=== PATIENT | female | born 1955 ===

== ENCOUNTER 2020-10-08 17:00 | Inpatient (IN) | payer OTHER ==
[~2020-10-08] VITALS: Ht 157.5 cm; Wt 52.4 kg
--- NOTE | 2020-10-08 20:39 | NUR ---
Admission Note with Justification for Admission to [facility] Patient admitted to [facility] for protective oversight for emergency stabilization of acute psychiatric crisis. Pt admitted from: Hospital ER Mode of arrival: Secure Transport Accompanied By: [facility] Staff Precipitating behaviors that initiated intake and admission: Confusion, anxiety, insomnia, Description of failure of out patient attempts at stabilization in previous setting list behavior and medication trials: ER visit, dcd [place], reassurance Behaviors and assessment findings upon admission: Pleasant and cooperative, VSS and in no distress Plan: Admit for protective oversight for adjustment and stabilization of medications, behaviors and mood. Intense treatment regimen including groups, medication adjustments, therapy, consistent regimen for ADL's, self care, and sleep hygiene. Daily monitoring by Inpatient staff, Psychiatry, and Medical Physician.
[2020-10-08 22:16] VITALS: BP 117/73
[2020-10-08] MEDS ORDERED: AMOX1TAB11 PO (22:21)
[2020-10-08] MEDS ORDERED: MULT-245 PO (22:21)
[2020-10-08] MEDS ORDERED: RISP0.5T62 PO (22:21)
[2020-10-08] MEDS ORDERED: DOXY100C3 PO (22:21)
[2020-10-08] MEDS ORDERED: ASPI325T8 PO (22:21)
[2020-10-08] MEDS ORDERED: MELA3TAB4 PO (22:21)
[2020-10-08] MEDS ORDERED: POLY17PO5 PO (22:21)
[2020-10-08] MEDS ORDERED: ZOLP5TAB PO (22:21)
[2020-10-08] MEDS ORDERED: HYDR-2155 PO (22:21)
[2020-10-08] MEDS ORDERED: TRAZ-120 PO (22:21)
[2020-10-08] MEDS ORDERED: PRED20TA PO (22:21)
[2020-10-08] MEDS ORDERED: MONT10TA80 PO (22:21)
[2020-10-08] MEDS ORDERED: FERR325T14 PO (22:21)
[2020-10-08] MEDS ORDERED: LEVO25TA55 PO (22:21)
[2020-10-08] MEDS ORDERED: ALBU2.5V8 IH (22:21)
[2020-10-08] MEDS ORDERED: [UNRECOGNIZED DRUG - CODE] PO (22:21)
[2020-10-08] MEDS ORDERED: BUSP5TAB PO (22:21)
[2020-10-08] MEDS ORDERED: FLUT9.9S NS (22:21)
[2020-10-08] MEDS ORDERED: PHENYLEPHRINE PO PRN (22:30)
[2020-10-08] MEDS ORDERED: CHLORPHENIRAMINE PO PRN (22:30)
[2020-10-08] MEDS ORDERED: CODEINE PO PRN (22:30)
[2020-10-08] MEDS ORDERED: ALBUTEROL SULFATE 2.5 MG/3 ML NEBU. IH PRN (22:30)
[2020-10-08] MEDS ORDERED: MAG HYDROX/AL HYDROX/SIMETH 30 ML ORAL.SUSP PO PRN (23:15)
[2020-10-08] MEDS ORDERED: MAGNESIUM HYDROXIDE 2,400 MG/30 ML ORAL.SUSP. PO PRN (23:15)
[2020-10-09] MEDS: MELATONIN 3 MG TABLET PO SCH ×2 (00:54→20:26)
[2020-10-09] MEDS: traZODone 50 MG TABLET. PO SCH ×2 (00:55→20:26)
[2020-10-09] MEDS: busPIRone 5 MG TABLET. PO SCH ×3 (00:55→20:25)
[2020-10-09] MEDS: ZOLPIDEM 5 MG TABLET. PO SCH ×2 (00:55→20:27)
[2020-10-09] MEDS: risperiDONE 0.5 MG TABLET. PO SCH ×2 (00:55→20:26)
[2020-10-09] MEDS: ACETAMINOPHEN 325 MG TABLET PO PRN (01:03)
--- NOTE | 2020-10-09 01:20 | NUR ---
PRN Tylenol given for foot pain. Pt has slept for awhile now awake and hyperverbal and tangential. Speech garbled, pt did not bring her dentures. her son Cruz said they are lost. HS meds given at this time and were taken whole without difficulty.
[2020-10-09] MEDS ORDERED: ALBUTEROL SULFATE 2.5 MG/3 ML NEBU. NEB PRN (01:30)
--- NOTE | 2020-10-09 02:00 | NUR ---
No further complaints of pain and is sleeping now.
[2020-10-09 05:21] VITALS: BP 110/70
[2020-10-09 06:03] LABS: BASO # 0.1 x10^3/uL (0.0-0.2); BASO % 1 % (0-3); EOS # 0.4 x10^3/uL (0.0-0.7); EOS % 7 % (0-3); HEMATOCRIT 28.8 % (36.0-47.0); HEMOGLOBIN 9.3 g/dL (12.0-15.5); LYMPH # 2.1 x10^3/uL (1.0-4.8); LYMPH % 35 % (24-48); MEAN CORPUSCULAR HEMOGLOBIN 32 pg (25-35); MEAN CORPUSCULAR HGB CONC 32 g/dL (31-37); MEAN CORPUSCULAR VOLUME 97 fL (79-100); MONO # 0.6 x10^3/uL (0.0-1.1); MONO % 11 % (0-9); NEUT # 2.8 x10^3uL (1.8-7.7); NEUT % 46 % (31-73); PLATELET COUNT 234 x10^3/uL (140-400); RED BLOOD COUNT 2.96 x10^6/uL (3.50-5.40); RED CELL DISTRIBUTION WIDTH 16.9 % (11.5-14.5); WHITE BLOOD COUNT 6.1 x10^3/uL (4.0-11.0)
[2020-10-09 06:27] LABS: ALBUMIN 2.7 g/dL (3.4-5.0); ALBUMIN/GLOBULIN RATIO 0.8 (1.0-1.7); CALCIUM 9.1 mg/dL (8.5-10.1); CREATININE 1.4 mg/dL (0.6-1.0); GFR 37.7; POTASSIUM 4.8 mmol/L (3.5-5.1); TOTAL BILIRUBIN 0.2 mg/dL (0.2-1.0); TOTAL PROTEIN 6.2 g/dL (6.4-8.2)
[2020-10-09] MEDS: ASPIRIN 325 MG TABLET PO SCH (08:13)
[2020-10-09] MEDS: MONTELUKAST 10 MG TABLET. PO SCH (08:13)
[2020-10-09] MEDS: MULTIVITAMIN with MINERAL TABLET. PO SCH (08:14)
[2020-10-09] MEDS: FERROUS SULFATE 325 MG TABLET. PO SCH ×2 (08:14→17:00)
[2020-10-09] MEDS: FLUTICASONE 50MCG/NASAL SPRAY 16GM BOTTLE. NS SCH (08:38)
[2020-10-09] MEDS ORDERED: predniSONE 20 MG TABLET PO SCH (09:00)
[2020-10-09] MEDS ORDERED: DOXYCYCLINE HYCLATE 100 MG PO SCH (09:00)
[2020-10-09] MEDS ORDERED: AMOXICILLIN/K CLAV 875/125MG TABLET. PO SCH (09:00)
--- NOTE | 2020-10-09 11:26 | NUR ---
Amoxicillin and Doxycycline held at this time pending review by Dr Andrade.
--- NOTE | 2020-10-09 11:32 | NUR ---
PSYCHOSOCIAL ASSESSMENT ADMISSION DATE: 10/08/20 CONTACT INFORMATION: DPOA/Guardian Contact Name: Cruz cMlaughlin Contact Address: [place] [address] Contact Phone #: ETHNIC ORIGIN: REASONS FOR ADMISSION: ADDITIONAL ADMISSION COMMENTS: According to the intake, pt is having A/V hallucinations, confusion, anxiety, insomnia, recent accidental overdose of [place] 2.5 ago; was taken off the [place] and is now hypomanic, distressed, fearful and distraught. REASON FOR ADMISSION IN PATIENT/FAMILY'S OWN WORDS: Accidental Overdose; found her pill box and her meds were all mixed together (no box had the same meds in days assigned). PATIENT/FAMILY EXPECTATIONS FOR ADMISSION: Medication management LIVING SITUATION: Patient lives with: Extended family Other living arrangements: moved in a month ago to live with niece. Contact Name: Contact Address: Contact Phone #: Contact Fax #: FAMILY RELATIONS: Marital Status: Single # of Marriages: 1 # of Children: 2 [facility] Family Support: Cooperative Involved in DC Planning Additional Comments r/t Family: Pt was and had 2 children. Pt son did not touch this subject much. He reports there being a year that he had to spend with his father while his mother was out tending to family; but no other information received. SIGNIFICANT PSYCHIATRIC/MEDICAL HISTORY: Psychiatric/Treatment History: This is pt first psychiatric admission to [facility]. Pt has a previous dx of Bipolar D/O. Pertinent Family History: Pt son is no sure of family hx. HISTORICAL DATA: Childhood Environment: Childhood Environment Additional Comments: Pt was born and raised most of her life in [place]. Most of pt family still lives there and pt has not been back in many years. Pt has a sister who just recently from Covid complications and a brother who last year -- both lived in the [facility]. 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 service: N Rastafari background: [place] Sexual orientation: Heterosexual Educational Level: Pt did graduate the 12th grade Past/Present Interests/Hobbies: Music and coloring, sometimes does a crossword puzzle Financial support/resources: Social Security Monthly income: Person handling finances: Pt controlled her own finances. Do you have a history of legal problems: N Cultural considerations: None SOCIAL RELATIONSHIPS-CURRENT/PAST: Psychiatrist: [facility] PCP: Dr. Nieves Counselor/Therapist: None [facility]: None Support Group: None Case Liner/Chief Accounting Officer: [facility] Other relationships: None STRENGTHS & WEAKNESSES: Patient's strengths: Good family support Ambulatory Approachable Other patient strengths: Patient's weaknesses: Health problems Other Other patient weaknesses: Long history of Bipolar PRELIMINARY PLAN OF TREATMENT: Preliminary plan: Dec. Hallucination/Delus Medication Stabilization Monitor Med Effects Dec. Outbursts Other preliminary treatment comments: DISCHARGE PLANNING: Discharge planning/disposition: Current Living Arrange. Placement Needed Additional discharge needs identified: Referral to higher level of care possible ADDITIONAL INFORMATION: Other Pertinent Data: CORNELIO met with pt son to complete PSA. Pt son reports that since pt has stopped the [place], her behaviors have been unmanageable. Pt has a longstanding diagnosis of Bipolar and reports that his mother has always been stable and showed no problems. But in the last month, pt moved in with his niece, which they told her was not a good idea but she did not wish to stay at her apartment alone. Pt has always been active and cared for things on her own. Pt son thinks pt needs to be in an environment with others her age and with the recent pill box incident, watched in taking her medications. He is in talks with a couple different places in the area and will let CORNELIO know if she will be able to move into any of them. CORNELIO will continue to work with Cruz and finalize pt discharge plans.
--- NOTE | 2020-10-09 11:48 | NUR ---
Pt has been appropriate and med compliant this morning. Appetite during breakfast appeared adequate. She remains very hyperverbal; combined with her thick accent and lack of dentures she is incredibly hard to understand when she speaks. Pt has been demanding and intrusive of staff at times; making multiple rapid questions and requests which are often unrelated to each other. She requested to shower, however specified that staff are only allowed to bathe her in "Dove" brand soaps and shampoos. She is alert and orientated, absent of SI/HI/VH/AH/delusions at this time. Her interactions with others have been appropriate. Plan of care continues, will pass to next shift.
--- NOTE | 2020-10-09 11:49 | NUR ---
WEEKLY ACTIVITY THERAPY NOTE Date of Admission:10/08/20 Date of AT Assessment: TBD Precipitating behaviors that initiated intake and admission:Confusion, anxiety, insomnia Goal aimed:TBD Initial Goal:TBD Weekly progress towards goal:NA Group participation level: NA Weekly highlights: arrived on [facility] Behaviors observed: new patient Plan: meet/assess pt Beneficial adaptations: TBD
--- NOTE | 2020-10-09 12:28 | NUR ---
Valeir has [employer] insurance. Call placed to Jose at [employer], , to obtain authorization number. Authorization number is [id number]. Clinicals need to be faxed to UR review at fax number [phone].
[2020-10-09] MEDS: ALBUTEROL SULFATE 8GM INHALER. INH PRN (13:55)
--- NOTE | 2020-10-09 13:55 | NUR ---
PRN Albuterol administered per pt request
--- NOTE | 2020-10-09 14:35 | NUR ---
Pt increasing in agitation concerning not having multiple changes of clothes. Per belongings inventory, she only brought the clothing she was wearing. She is insistent on contacting various members of her family to request that they travel from [place] to bring her more clothing. This nurse told pt that I spoke with son, Crzu, earlier in the day and he was intending to call and speak with her around dinner time, however this does not satisfy her as she is adamant that she needs to request that family bring her clothing immediately. At one point pt became so angry about the clothing situation where she began to raise her voice to BALANCE ASSEMBLER and interrupt her during her attempts to explain and offer cleaning pt's clothing as she slept so they would be clean for her the following day.
[2020-10-09 15:27] LABS: THYROID STIM HORMONE (TSH) 2.508 uIU/mL (0.358-3.740)
[2020-10-09 16:17] VITALS: BP 116/65
--- NOTE | 2020-10-09 17:29 | NUR ---
FLOR reports pt was screaming for help from her room and multiple patients in the chavez were distressed from the sounds. MACHINE CASTINGS PLASTERER reported to this nurse that pt was observed sitting comfortably and upright on her bed with her walker in front of her in arms' reach. Pt was screaming "Help me! I can't stand up! I can't feel my legs! I'm paralyzed!" MACHINE CASTINGS PLASTERER then calmly encouraged pt to stand, and she did so with ease and without the need for assistance aside from her personal walker. Pt then chuckled, "Oh, I guess I can stand afterall."
[2020-10-09] MEDS: LITHIUM CARBONATE 300 MG TABLET PO SCH (20:27)
[2020-10-09 21:08] LABS: BILIRUBIN,URINE NEG (NEG); CLARITY,URINE CLEAR; COLOR,URINE YELLOW; GLUCOSE,URINE NEG (NEG); NITRITE,URINE NEG (NEG); UROBILINOGEN,URINE 0.2 mg/dL (0.2 mg/dL)
[2020-10-09 21:09] LABS: BACTERIA,URINE 0 /HPF (0-FEW); RBC,URINE 0 /HPF (0-2); SQUAMOUS EPITHELIAL CELL,UR FEW /LPF
--- NOTE | 2020-10-09 21:59 | PDOC ---
Exam Note: Evangelist Note: Please also refer to the separate dictated note~for this date of service dictated separately.~Patient seen individually. Discussed the patient with Nursing staff reviewed the chart.~Reviewed interim history and current functioning. Reviewed vital signs,~Labs/ Radiology~and current medications noted below. Continue current treatment with the changes noted in the dictated addendum note Assessment: Vital Signs/I&O: Vital Signs Date Time Temp Pulse Resp B/P (MAP) Pulse Ox O2 Delivery O2 Flow Rate FiO2 10/09/20 16:17 98.5 101 22 116/65 (82) 99 10/08/20 22:16 Room Air I & O 10/08/20 10/08/20 10/09/20 15:00 23:00 07:00 Intake Total 360 ml Balance 360 ml Labs: Laboratory Tests Test 10/09/20 05:42 10/09/20 20:00 White Blood Count 6.1 x10^3/uL (4.0-11.0) Red Blood Count 2.96 x10^6/uL (3.50-5.40) L Hemoglobin 9.3 g/dL (12.0-15.5) L Hematocrit 28.8 % (36.0-47.0) L Mean Corpuscular Volume 97 fL (79-100) Mean Corpuscular Hemoglobin 32 pg (25-35) Mean Corpuscular Hemoglobin Concent 32 g/dL (31-37) Red Cell Distribution Width 16.9 % (11.5-14.5) H Platelet Count 234 x10^3/uL (140-400) Neutrophils (%) (Auto) 46 % (31-73) Lymphocytes (%) (Auto) 35 % (24-48) Monocytes (%) (Auto) 11 % (0-9) H Eosinophils (%) (Auto) 7 % (0-3) H Basophils (%) (Auto) 1 % (0-3) Neutrophils # (Auto) 2.8 x10^3uL (1.8-7.7) Lymphocytes # (Auto) 2.1 x10^3/uL (1.0-4.8) Monocytes # (Auto) 0.6 x10^3/uL (0.0-1.1) Eosinophils # (Auto) 0.4 x10^3/uL (0.0-0.7) Basophils # (Auto) 0.1 x10^3/uL (0.0-0.2) D-Dimer (Nancy) 2.26 mg/L (0.00-0.50) H Sodium Level 138 mmol/L (136-145) Potassium Level 4.8 mmol/L (3.5-5.1) Chloride Level 105 mmol/L (98-107) Carbon Dioxide Level 23 mmol/L (21-32) Anion Gap 10 (6-14) Blood Urea Nitrogen 14 mg/dL (7-20) Creatinine 1.4 mg/dL (0.6-1.0) H Estimated GFR (Cockcroft-Gault) 37.7 BUN/Creatinine Ratio 10 (6-20) Glucose Level 97 mg/dL (70-99) Calcium Level 9.1 mg/dL (8.5-10.1) Magnesium Level 2.0 mg/dL (1.8-2.4) Iron Level 53 ug/dL (50-170) Total Iron Binding Capacity 243 ug/dL (250-450) L Iron Saturation 22 % (15-34) Total Bilirubin 0.2 mg/dL (0.2-1.0) Aspartate Amino Transferase (AST) 22 U/L (15-37) Alanine Aminotransferase (ALT) 47 U/L (14-59) Alkaline Phosphatase 96 U/L (46-116) Total Protein 6.2 g/dL (6.4-8.2) L Albumin 2.7 g/dL (3.4-5.0) L Albumin/Globulin Ratio 0.8 (1.0-1.7) L Triglycerides Level 232 mg/dL (0-150) H Cholesterol Level 172 mg/dL (0-200) LDL Cholesterol, Calculated 78 mg/dL (0-100) VLDL Cholesterol, Calculated 46 mg/dL (0-40) H Non-HDL Cholesterol Calculated 124 mg/dL (0-129) HDL Cholesterol 48 mg/dL (40-60) Cholesterol/HDL Ratio 3.0 Vitamin B12 Level 872 pg/mL (247-911) 25-Hydroxy Vitamin D Total 17.9 ng/mL (30-100) L Thyroid Stimulating Hormone (TSH) 2.508 uIU/mL (0.358-3.740) Thyroxine (T4) 6.0 ug/dL (4.5-12.0) Total Triiodothyronine (TT3) 140 ng/dL (71-180) Treponema pallidum Antibody Nonreactive (Nonreactive) Urine Collection Type Clean catch Urine Color Yellow Urine Clarity Clear Urine pH 7.0 Urine Specific [place] 1.015 Urine Protein Neg (NEG-TRACE) Urine Glucose (UA) Neg mg/dL (NEG) Urine Ketones (Stick) Neg mg/dL (NEG) Urine Blood Neg (NEG) Urine Nitrite Neg (NEG) Urine Bilirubin Neg (NEG) Urine Urobilinogen Dipstick 0.2 mg/dL (0.2 mg/dL) Urine Leukocyte Esterase Trace (NEG) Urine RBC 0 /HPF (0-2) Urine WBC 1-4 /HPF (0-4) Urine Squamous Epithelial Cells Few /LPF Urine Bacteria 0 /HPF (0-FEW) Current Medications: Meds: Laboratory Tests Test 10/09/20 05:42 10/09/20 20:00 White Blood Count 6.1 x10^3/uL Red Blood Count 2.96 x10^6/uL Hemoglobin 9.3 g/dL Hematocrit 28.8 % Mean Corpuscular Volume 97 fL Mean Corpuscular Hemoglobin 32 pg Mean Corpuscular Hemoglobin Concent 32 g/dL Red Cell Distribution Width 16.9 % Platelet Count 234 x10^3/uL Neutrophils (%) (Auto) 46 % Lymphocytes (%) (Auto) 35 % Monocytes (%) (Auto) 11 % Eosinophils (%) (Auto) 7 % Basophils (%) (Auto) 1 % Neutrophils # (Auto) 2.8 x10^3uL Lymphocytes # (Auto) 2.1 x10^3/uL Monocytes # (Auto) 0.6 x10^3/uL Eosinophils # (Auto) 0.4 x10^3/uL Basophils # (Auto) 0.1 x10^3/uL D-Dimer (Nancy) 2.26 mg/L Sodium Level 138 mmol/L Potassium Level 4.8 mmol/L Chloride Level 105 mmol/L Carbon Dioxide Level 23 mmol/L Anion Gap 10 Blood Urea Nitrogen 14 mg/dL Creatinine 1.4 mg/dL Estimated GFR (Cockcroft-Gault) 37.7 BUN/Creatinine Ratio 10 Glucose Level 97 mg/dL Calcium Level 9.1 mg/dL Magnesium Level 2.0 mg/dL Iron Level 53 ug/dL Total Iron Binding Capacity 243 ug/dL Iron Saturation 22 % Total Bilirubin 0.2 mg/dL Aspartate Amino Transf (AST/SGOT) 22 U/L Alanine Aminotransferase (ALT/SGPT) 47 U/L Alkaline Phosphatase 96 U/L Total Protein 6.2 g/dL Albumin 2.7 g/dL Albumin/Globulin Ratio 0.8 Triglycerides Level 232 mg/dL Cholesterol Level 172 mg/dL LDL Cholesterol, Calculated 78 mg/dL VLDL Cholesterol, Calculated 46 mg/dL Non-HDL Cholesterol Calculated 124 mg/dL HDL Cholesterol 48 mg/dL Cholesterol/HDL Ratio 3.0 Vitamin B12 Level 872 pg/mL 25-Hydroxy Vitamin D Total 17.9 ng/mL Thyroid Stimulating Hormone (TSH) 2.508 uIU/mL Thyroxine (T4) 6.0 ug/dL Total Triiodothyronine 140 ng/dL Treponema pallidum Antibody Nonreactive Urine Collection Type Clean catch Urine Color Yellow Urine Clarity Clear Urine pH 7.0 Urine Specific [place] 1.015 Urine Protein Neg Urine Glucose (UA) Neg mg/dL Urine Ketones (Stick) Neg mg/dL Urine Blood Neg Urine Nitrite Neg Urine Bilirubin Neg Urine Urobilinogen Dipstick 0.2 mg/dL Urine Leukocyte Esterase Trace Urine RBC 0 /HPF Urine WBC 1-4 /HPF Urine Squamous Epithelial Cells Few /LPF Urine Bacteria 0 /HPF Current Medications Medications (Trade) Dose Ordered Sig/Jessica Route PRN Reason Start Time Stop Time Status Last Admin Dose Admin Albuterol Sulfate (Ventolin) 1 mg PRN Q6HRS PRN IH FOR ASTHMA 10/08/20 22:30 10/08/20 22:41 DC Amoxicillin/ Clavulanate Potassium (Augmentin 875/ 125mg) 1 tab BID PO 10/09/20 09:00 10/09/20 12:52 DC Aspirin (Mikal Aspirin) 325 mg DAILY PO 10/09/20 09:00 10/09/20 08:13 Buspirone HCl (Buspar) 5 mg BID PO 10/08/20 23:00 10/09/20 20:25 Ferrous Sulfate (Feosol) 325 mg BIDWMEALS PO 10/09/20 08:00 10/09/20 17:00 Acetaminophen/ Hydrocodone Bitart (Lortab 5/325) 1 tab PRN Q4HRS PRN PO MODERATE TO SEVERE PAIN 10/08/20 22:30 Levothyroxine Sodium (Synthroid) 25 mcg WEEKLYAC PO 10/15/20 07:00 10/09/20 12:52 DC Melatonin (Melatonin) 3 mg HS PO 10/08/20 21:00 10/09/20 20:26 Montelukast Sodium (Singulair) 10 mg DAILY PO 10/09/20 09:00 10/09/20 08:13 Polyethylene Glycol (miraLAX) 17 gm PRN DAILY PRN PO CONSTIPATION 10/08/20 22:30 Prednisone (Prednisone) 20 mg DAILY PO 10/09/20 09:00 10/09/20 14:24 DC 10/09/20 08:13 Risperidone (RisperDAL) 0.5 mg QHS PO 10/08/20 23:00 10/09/20 20:26 Trazodone HCl (Desyrel) 25 mg HS PO 10/08/20 23:00 10/09/20 20:26 Zolpidem Tartrate (Ambien) 5 mg HS PO 10/08/20 23:00 10/09/20 20:27 Non-Formulary Medication (Chlorpheniramine/ Pe/Codeine (Capcof Liquid)) 5 ml PRN Q12HR PRN PO COUGH 10/08/20 22:30 UNV Non-Formulary Medication (Doxycycline Hyclate ) 100 mg BID PO 10/09/20 09:00 10/09/20 12:52 DC Fluticasone Propionate (Flonase) 1 spray DAILY NS 10/09/20 09:00 10/09/20 08:38 Multivitamins/ Calcium (Thera-M Plus) 1 tab DAILY PO 10/09/20 09:00 10/09/20 08:14 Acetaminophen (Tylenol) 650 mg PRN Q6HRS PRN PO MILD PAIN / TEMP > 100.3'F 10/08/20 23:15 10/09/20 01:03 Multi-Ingredient Ointment (Analgesic Trinity) 1 gunner PRN QID PRN TP MUSCLE PAIN 10/08/20 23:15 Al Hydroxide/Mg Hydroxide (Mylanta Plus Xs) 15 ml PRN AFTMEALHC PRN PO DYSPEPSIA 10/08/20 23:15 10/09/20 00:04 DC Magnesium Hydroxide (Milk Of Magnesia) 2,400 mg PRN QHS PRN PO CONSTIPATION 10/08/20 23:15 10/09/20 00:04 DC Albuterol Sulfate (Ventolin) 2.5 mg PRN Q6HRS PRN NEB SHORTNESS OF BREATH 10/09/20 01:30 Cancel Albuterol Sulfate (Ventolin Hfa Inhaler) 1 puff PRN Q6HRS PRN INH SHORTNESS OF BREATH 10/09/20 13:45 10/09/20 13:55 Olanzapine (ZyPREXA ZYDIS) 2.5 mg PRN Q2HR PRN PO PSYCHOSIS 10/09/20 19:45 [place] Carbonate 300 mg HS PO 10/09/20 21:00 10/09/20 20:27 Current Medications Medications (Trade) Dose Ordered Sig/Jessica Route PRN Reason Start Time Stop Time Status Last Admin Dose Admin Aspirin (Mikal Aspirin) 325 mg DAILY PO 10/09/20 09:00 10/09/20 08:13 Buspirone HCl (Buspar) 5 mg BID PO 10/08/20 23:00 10/09/20 20:25 Ferrous Sulfate (Feosol) 325 mg BIDWMEALS PO 10/09/20 08:00 10/09/20 17:00 Montelukast Sodium (Singulair) 10 mg DAILY PO 10/09/20 09:00 10/09/20 08:13 Prednisone (Prednisone) 20 mg DAILY PO 10/09/20 09:00 10/09/20 14:24 DC 10/09/20 08:13 Risperidone (RisperDAL) 0.5 mg QHS PO 10/08/20 23:00 10/09/20 20:26 Trazodone HCl (Desyrel) 25 mg HS PO 10/08/20 23:00 10/09/20 20:26 Zolpidem Tartrate (Ambien) 5 mg HS PO 10/08/20 23:00 10/09/20 20:27 Fluticasone Propionate (Flonase) 1 spray DAILY NS 10/09/20 09:00 10/09/20 08:38 Multivitamins/ Calcium (Thera-M Plus) 1 tab DAILY PO 10/09/20 09:00 10/09/20 08:14 Acetaminophen (Tylenol) 650 mg PRN Q6HRS PRN PO MILD PAIN / TEMP > 100.3'F 10/08/20 23:15 10/09/20 01:03 Albuterol Sulfate (Ventolin Hfa Inhaler) 1 puff PRN Q6HRS PRN INH SHORTNESS OF BREATH 10/09/20 13:45 10/09/20 13:55 [place] Carbonate 300 mg HS PO 10/09/20 21:00 10/09/20 20:27 I have reviewed the current psychotropics carefully including drug interactions. Risk benefit ratio favors no change other than as noted in my dictated progress note. VARUN CA MD Oct 09, 2020 21:59
--- NOTE | 2020-10-09 22:13 | HP ---
ADMIT DATE: 10/09/2020 PSYCHIATRIC ADMISSION HISTORY/EVALUATION IDENTIFYING DATA: The patient is a 65-year-old female referred to us from [facility] where she presented from home on account of auditory or visual hallucinations, marked anxiety, insomnia, recent accidental overdose of lithium, 2-1/2 weeks ago after which her lithium was discontinued. She has been recently hypomanic to manic, thus extremely distressed, fearful, distraught, paranoid. She has failed outpatient psychiatric interventions, needs to be restarted on mood stabilizers, referred for inpatient psychiatric stabilization. CHIEF COMPLAINT: "I have been on disability for a long time. I have been taking lithium for a very long time. I need to get back on it." HISTORY OF PRESENT ILLNESS: Reportedly, patient has a long history of bipolar disorder and has been on lithium for an extended period of time. She did have a recent accidental overdose, but otherwise had been stable on it. She has been paranoid, having sleep and appetite changes. No active suicidal or homicidal ideation. PAST PSYCHIATRIC HISTORY: As above. PAST MEDICAL HISTORY: Hypothyroidism, arthritis, asthma, GERD, migraines. PAST SURGICAL HISTORY: Appendectomy, cholecystectomy, tonsillectomy, history of renal and ureteral calculi, right ankle fracture. Accu-Cheks negative. CODE STATUS: Full. ALLERGIES: THORAZINE, CYPROHEPTADINE, BENADRYL, HALDOL, MYLANTA, BRETHAIRE. DIET: Regular. Soft. Takes medications whole. Ambulates with walker. CURRENT PSYCHOTROPICS: Ambien 5 mg at bedtime, BuSpar 5 mg b.i.d., Risperdal 0.5 mg daily, trazodone 25 mg at bedtime, melatonin 3 mg at bedtime. FAMILY HISTORY: Noncontributory. SOCIAL HISTORY: No history of alcohol, drug abuse, physical, sexual or elder abuse history is noted. The patient is not known to be a perpetrator. REACTION TO HOSPITALIZATION: The patient accepting of it. REVIEW OF SYSTEMS: No CV, , pulmonary, eye, ENT system symptoms on review. Gait unsteady with walker. MENTAL STATUS EXAM: Oriented to herself, situation. Speech has some latency, coherent. Abstraction fair. Computation impaired. Language function intact. Attention span short. She is somewhat labile at times, grandiose, paranoid. No active suicidal or homicidal ideation. She is quite distractable. LABORATORY DATA: Reviewed. IMPRESSION: Bipolar disorder, mixed with psychotic features; anxiety disorder, unspecified; impulse control disorder, unspecified. She does have some oral and facial movements, questionable tardive dyskinesia early. PLAN: We will continue patient on her current psychotropics. Observe baseline. Family states she has been on lithium for all the time they have known her, and we will consider restarting this or use Depakote as a mood stabilizer. Make further adjustments as clinically indicated. ESTIMATED LENGTH OF STAY: 10-12 days. DISPOSITION PLANS: Back to home with outpatient treatment once stable. LUIS ANGEL DR: Robe TID: [id number]
[2020-10-10 00:07] LABS: HEMOGLOBIN A1C 5.7 % (4.8-5.6)
--- NOTE | 2020-10-10 00:52 | NUR ---
Patient was very dismissive to this nurse when nurse was assessing her and giving HS medications. Patients urine sample was obtained and sent to lab, it went out to culture. Patient went into the hallway once and was yelling, she was redirected back to her room before she woke up the other patients. Dr Jordan gave order to start patient on [place] 300mg HS. CBC, CMP and [place] level will be drawn on 10/12 0500.
[2020-10-10 06:05] VITALS: BP 109/75
[2020-10-10] MEDS: ASPIRIN 325 MG TABLET PO SCH (08:34)
[2020-10-10] MEDS: busPIRone 5 MG TABLET. PO SCH ×2 (08:34→20:27)
[2020-10-10] MEDS: FERROUS SULFATE 325 MG TABLET. PO SCH ×2 (08:34→16:55)
[2020-10-10] MEDS: MULTIVITAMIN with MINERAL TABLET. PO SCH (08:34)
[2020-10-10] MEDS: MONTELUKAST 10 MG TABLET. PO SCH (08:35)
[2020-10-10] MEDS: FLUTICASONE 50MCG/NASAL SPRAY 16GM BOTTLE. NS SCH (08:35)
--- NOTE | 2020-10-10 08:40 | NUR ---
ACTIVITY THERAPY ASSESSMENT completed based on notes, observation, and interview. Pt was laying in her bed after breakfast. AT introduced self and pt sat up and was willing to answer assessment questions. During assessment pt was hyperverbal at times but remained pleasant. Pt expressed interest in group activities offered on [facility] and then stated that she enjoys painting, coloring, making things with her hands, and anything that has to do with arts and crafts. Pt was able to recall most facts and details but did have some error. Pt stated that she was 54 and has three children. Per notes pt is 65 and has two children. Pt said that she is in good contact with her family. AT asked if pt felt any stress at this point in time and she said no. AT asked her how she jhoan with stress and she said that she uses the technique "rock yourself to sleep." Pt said that it has really helped her relax. Pt reports that she can walk well with the assistance of her walker but sometimes she does forget to grab it. Pt reports that she lives with her granddaughter in an apartment, per notes pt lives with her niece. Initial goal aimed to support socialization and engagement. Pt will participate in at least five individual or group Activity Therapy sessions per week.
[2020-10-10 16:34] VITALS: BP 132/85
[2020-10-10] MEDS: ALBUTEROL SULFATE 8GM INHALER. INH PRN ×2 (16:55→20:27)
[2020-10-10] MEDS ORDERED: CALCIUM CARBONATE 500 MG TAB.CHEW PO PRN (17:00)
--- NOTE | 2020-10-10 17:42 | NUR ---
Nsg Note; Valeri has been restless today, getting up out of her chair and taking short walks with a walker in the chavez or her room before returning to the chair next to another patient. they have conversed today with Valeri being hyperverbal and interruptive at times. she is attention seeking and will interrupt my taking care of another patient to make her wants known. she has a lot of requests for misc items and food. she requested her inhaler at dinner time as her chest felt a little tight. the inhaler worked well for her.
[2020-10-10] MEDS: MELATONIN 3 MG TABLET PO SCH (20:27)
[2020-10-10] MEDS: risperiDONE 0.5 MG TABLET. PO SCH (20:28)
[2020-10-10] MEDS: ZOLPIDEM 5 MG TABLET. PO SCH (20:28)
[2020-10-10] MEDS: traZODone 50 MG TABLET. PO SCH (20:28)
[2020-10-10] MEDS: LITHIUM CARBONATE 300 MG TABLET PO SCH (20:28)
--- NOTE | 2020-10-10 22:08 | PDOC ---
Exam Note: Evangelist Note: Please also refer to the separate dictated note~for this date of service dictated separately.~Patient seen individually. Discussed the patient with Nursing staff reviewed the chart.~Reviewed interim history and current functioning. Reviewed vital signs,~Labs/ Radiology~and current medications noted below. Continue current treatment with the changes noted in the dictated addendum note Assessment: Vital Signs/I&O: Vital Signs Date Time Temp Pulse Resp B/P (MAP) Pulse Ox O2 Delivery O2 Flow Rate FiO2 10/10/20 16:34 98.1 92 20 132/85 (101) 95 10/08/20 22:16 Room Air I & O 10/09/20 10/09/20 10/10/20 15:00 23:00 07:00 Intake Total 240 ml 480 ml Balance 240 ml 480 ml Current Medications: Meds: Current Medications Medications (Trade) Dose Ordered Sig/Jessica Route PRN Reason Start Time Stop Time Status Last Admin Dose Admin Albuterol Sulfate (Ventolin) 1 mg PRN Q6HRS PRN IH FOR ASTHMA 10/08/20 22:30 10/08/20 22:41 DC Amoxicillin/ Clavulanate Potassium (Augmentin 875/ 125mg) 1 tab BID PO 10/09/20 09:00 10/09/20 12:52 DC Aspirin (Mikal Aspirin) 325 mg DAILY PO 10/09/20 09:00 10/10/20 08:34 Buspirone HCl (Buspar) 5 mg BID PO 10/08/20 23:00 10/10/20 21:00 DC 10/10/20 20:27 Ferrous Sulfate (Feosol) 325 mg BIDWMEALS PO 10/09/20 08:00 10/10/20 16:55 Acetaminophen/ Hydrocodone Bitart (Lortab 5/325) 1 tab PRN Q4HRS PRN PO MODERATE TO SEVERE PAIN 10/08/20 22:30 Levothyroxine Sodium (Synthroid) 25 mcg WEEKLYAC PO 10/15/20 07:00 10/09/20 12:52 DC Melatonin (Melatonin) 3 mg HS PO 10/08/20 21:00 10/10/20 20:27 Montelukast Sodium (Singulair) 10 mg DAILY PO 10/09/20 09:00 10/10/20 08:35 Polyethylene Glycol (miraLAX) 17 gm PRN DAILY PRN PO CONSTIPATION 10/08/20 22:30 Prednisone (Prednisone) 20 mg DAILY PO 10/09/20 09:00 10/09/20 14:24 DC 10/09/20 08:13 Risperidone (RisperDAL) 0.5 mg QHS PO 10/08/20 23:00 10/10/20 20:28 Trazodone HCl (Desyrel) 25 mg HS PO 10/08/20 23:00 10/10/20 20:28 Zolpidem Tartrate (Ambien) 5 mg HS PO 10/08/20 23:00 10/10/20 20:28 Non-Formulary Medication (Chlorpheniramine/ Pe/Codeine (Capcof Liquid)) 5 ml PRN Q12HR PRN PO COUGH 10/08/20 22:30 UNV Non-Formulary Medication (Doxycycline Hyclate ) 100 mg BID PO 10/09/20 09:00 10/09/20 12:52 DC Fluticasone Propionate (Flonase) 1 spray DAILY NS 10/09/20 09:00 10/10/20 08:35 Multivitamins/ Calcium (Thera-M Plus) 1 tab DAILY PO 10/09/20 09:00 10/10/20 08:34 Acetaminophen (Tylenol) 650 mg PRN Q6HRS PRN PO MILD PAIN / TEMP > 100.3'F 10/08/20 23:15 10/09/20 01:03 Multi-Ingredient Ointment (Analgesic [place]) 1 gunner PRN QID PRN TP MUSCLE PAIN 10/08/20 23:15 Al Hydroxide/Mg Hydroxide (Mylanta Plus Xs) 15 ml PRN AFTMEALHC PRN PO DYSPEPSIA 10/08/20 23:15 10/09/20 00:04 DC Magnesium Hydroxide (Milk Of Magnesia) 2,400 mg PRN QHS PRN PO CONSTIPATION 10/08/20 23:15 10/09/20 00:04 DC Albuterol Sulfate (Ventolin) 2.5 mg PRN Q6HRS PRN NEB SHORTNESS OF BREATH 10/09/20 01:30 Cancel Albuterol Sulfate (Ventolin Hfa Inhaler) 1 puff PRN Q6HRS PRN INH SHORTNESS OF BREATH 10/09/20 13:45 10/10/20 20:27 Olanzapine (ZyPREXA ZYDIS) 2.5 mg PRN Q2HR PRN PO PSYCHOSIS 10/09/20 19:45 [place] Carbonate 300 mg HS PO 10/09/20 21:00 10/10/20 20:28 Calcium Carbonate/ Glycine (Tums) 500 mg PRN AFTMEALHC PRN PO INDIGESTION 10/10/20 17:00 UNV I have reviewed the current psychotropics carefully including drug interactions. Risk benefit ratio favors no change other than as noted in my dictated progress note. Diagnosis: Problems: (1) Bipolar disorder, current episode mixed, severe, with psychotic features (2) Anxiety disorder, unspecified (3) Impulse control disorder, unspecified VARUN CA MD Oct 10, 2020 22:08
--- NOTE | 2020-10-10 23:31 | NUR ---
Patient was interactive and demanding to go home during shift assessment. She stated that a peer had "been in her bed and messed it up". It appeared as if someone had spilled food in the bed. Linens were changed per patient request. Patient compliant with HS meds taken whole. Patient requested her PRN inhaler at 2100 as she stated that her lungs/chest felt "tight". PRN inhaler given per order for SOB. At 2330 patient asked for something to help her sleep. She has already taken scheduled ambien, trazodone and melatonin and has no sleeping medications PRN. Patient given a snack and some milk and encouraged to go back to bed. Will continue to monitor.
[2020-10-11] MEDS: POLYETHYLENE GLYCOL 3350 17 GM PACKET. PO PRN (00:04)
[2020-10-11 06:11] VITALS: BP 131/80
[2020-10-11] MEDS: FLUTICASONE 50MCG/NASAL SPRAY 16GM BOTTLE. NS SCH (08:01)
[2020-10-11] MEDS: MONTELUKAST 10 MG TABLET. PO SCH (08:01)
[2020-10-11] MEDS: ASPIRIN 325 MG TABLET PO SCH (08:01)
[2020-10-11] MEDS: MULTIVITAMIN with MINERAL TABLET. PO SCH (08:01)
[2020-10-11] MEDS: FERROUS SULFATE 325 MG TABLET. PO SCH ×2 (08:01→17:14)
[2020-10-11] MEDS: ACETAMINOPHEN 325 MG TABLET PO PRN (08:18)
--- NOTE | 2020-10-11 09:43 | CONS ---
DATE OF CONSULTATION: 10/11/2020 ATTENDING PHYSICIAN: Dr. Ca. HISTORY OF PRESENT ILLNESS: We are asked to see this patient for medical consultation. The patient is a very pleasant 65-year-old female who comes from [place], [place]. Her son lives here in town. She was sent here with audio and visual hallucinations. She has been hearing voices. She is confused. She is a little bipolar with some manic phase. She has become distraught, distressed. She was sent here for further evaluation for her underlying mental issues. PAST MEDICAL HISTORY: Significant for the bipolar disorder with psychotic features, degenerative arthritis, asthma, gastroesophageal reflux disease, migraine headaches. ALLERGIES: SHE HAS ALLERGIES TO SEVERAL DRUGS INCLUDING CALCIUM CARBONATE, ALUMINUM HYDROXIDE, CHLORPROMAZINE, CYPROHEPTADINE, DIPHENHYDRAMINE, HALOPERIDOL, MAGNESIUM, SIMETHICONE AND TERBUTALINE. EXACT REACTION IS UNCLEAR. CURRENT SCHEDULED MEDICATIONS: Includes albuterol, aspirin, BuSpar, ferrous sulfate, Flonase nasal spray, hydrocodone p.r.n., melatonin, Singulair, multivitamin, MiraLax, risperidone, trazodone, and zolpidem at bedtime. SOCIAL HISTORY: She has been a smoker in the past. No alcohol history. FAMILY HISTORY: Unobtainable due to the patient's confusion. REVIEW OF SYSTEMS: Unobtainable due to the patient's confusion. PHYSICAL EXAMINATION: GENERAL: When I saw her, this is a pleasant, middle-aged female. VITAL SIGNS: Her initial vital signs showed blood pressure of 131/80 mmHg, pulse is 90 and regular. She is afebrile. Oxygen saturation 96% on room air. HEENT: Head is without trauma. Pupils are reactive. Sclerae nonicteric. Oropharynx clear. NECK: Supple, no bruits identified. LUNGS: Clear to auscultation. CARDIOVASCULAR: Showed regular heart tones. No gallops. ABDOMEN: Soft. EXTREMITIES: Without edema. NEUROLOGIC: Focally intact. Speech is fluent. SKIN: Warm and dry. PERTINENT LABORATORY STUDIES: Admission hemoglobin was 9.3 g/dL with a white count of 6100. Indices were normochromic normocytic. Chemistry panel, her electrolytes are within normal range. BUN 14, creatinine 1.4 mg/dL. Hemoglobin A1c is normal. Iron studies were low with a serum iron of 53. Serology, so far the treponema pallidum serology was nonreactive. ASSESSMENT: 1. A 65-year-old female with bipolar disorder with agitation and behavioral issues. 2. Hypertension. 3. Normochromic normocytic anemia, asymptomatic at this time. 4. Essential hypertension. 5. Degenerative arthritis. RECOMMENDATIONS: 1. This patient is stable from a medical standpoint. 2. Her home medications were reviewed and should be continued. Thank you again for asking me to see the patient for medical consultation. We should gladly follow along during her inpatient stay. NOMAN DR: Sb TID: [id number] CC: VARUN CA MD
[2020-10-11] MEDS: ALBUTEROL SULFATE 8GM INHALER. INH PRN (13:32)
[2020-10-11 15:36] VITALS: BP 127/80
[2020-10-11] MEDS ORDERED: traZODone 50 MG TABLET. PO PRN (20:00)
[2020-10-11] MEDS: risperiDONE 0.5 MG TABLET. PO SCH (20:26)
[2020-10-11] MEDS: MELATONIN 3 MG TABLET PO SCH (20:26)
[2020-10-11] MEDS: LITHIUM CARBONATE 300 MG TABLET PO SCH (20:27)
[2020-10-11] MEDS: traZODone 50 MG TABLET. PO SCH (20:27)
[2020-10-11] MEDS: ZOLPIDEM 5 MG TABLET. PO SCH (20:28)
[2020-10-11] MEDS: MIRTAZAPINE 7.5 MG TABLET. PO SCH (20:28)
[2020-10-11] MEDS: HYDROcodone/APAP 5/325MG 1 TAB TABLET PO PRN (21:10)
--- NOTE | 2020-10-11 22:04 | PDOC ---
Exam Note: Evangelist Note: Please also refer to the separate dictated note~for this date of service dictated separately.~Patient seen individually. Discussed the patient with Nursing staff reviewed the chart.~Reviewed interim history and current functioning. Reviewed vital signs,~Labs/ Radiology~and current medications noted below. Continue current treatment with the changes noted in the dictated addendum note Assessment: Vital Signs/I&O: Vital Signs Date Time Temp Pulse Resp B/P (MAP) Pulse Ox O2 Delivery O2 Flow Rate FiO2 10/11/20 21:40 92 10/11/20 15:36 98.0 64 20 127/80 (96) 10/08/20 22:16 Room Air I & O 10/10/20 10/10/20 10/11/20 15:00 23:00 07:00 Intake Total 840 ml 480 ml Balance 840 ml 480 ml Current Medications: Meds: Current Medications Medications (Trade) Dose Ordered Sig/Jessica Route PRN Reason Start Time Stop Time Status Last Admin Dose Admin Albuterol Sulfate (Ventolin) 1 mg PRN Q6HRS PRN IH FOR ASTHMA 10/08/20 22:30 10/08/20 22:41 DC Amoxicillin/ Clavulanate Potassium (Augmentin 875/ 125mg) 1 tab BID PO 10/09/20 09:00 10/09/20 12:52 DC Aspirin (Mikal Aspirin) 325 mg DAILY PO 10/09/20 09:00 10/11/20 08:01 Buspirone HCl (Buspar) 5 mg BID PO 10/08/20 23:00 10/10/20 21:00 DC 10/10/20 20:27 Ferrous Sulfate (Feosol) 325 mg BIDWMEALS PO 10/09/20 08:00 10/11/20 17:14 Acetaminophen/ Hydrocodone Bitart (Lortab 5/325) 1 tab PRN Q4HRS PRN PO MODERATE TO SEVERE PAIN 10/08/20 22:30 10/11/20 21:10 Levothyroxine Sodium (Synthroid) 25 mcg WEEKLYAC PO 10/15/20 07:00 10/09/20 12:52 DC Melatonin (Melatonin) 3 mg HS PO 10/08/20 21:00 10/11/20 20:26 Montelukast Sodium (Singulair) 10 mg DAILY PO 10/09/20 09:00 10/11/20 08:01 Polyethylene Glycol (miraLAX) 17 gm PRN DAILY PRN PO CONSTIPATION 10/08/20 22:30 10/11/20 00:04 Prednisone (Prednisone) 20 mg DAILY PO 10/09/20 09:00 10/09/20 14:24 DC 10/09/20 08:13 Risperidone (RisperDAL) 0.5 mg QHS PO 10/08/20 23:00 10/11/20 20:26 Trazodone HCl (Desyrel) 25 mg HS PO 10/08/20 23:00 10/11/20 20:27 Zolpidem Tartrate (Ambien) 5 mg HS PO 10/08/20 23:00 10/11/20 20:28 Non-Formulary Medication (Chlorpheniramine/ Pe/Codeine (Capcof Liquid)) 5 ml PRN Q12HR PRN PO COUGH 10/08/20 22:30 UNV Non-Formulary Medication (Doxycycline Hyclate ) 100 mg BID PO 10/09/20 09:00 10/09/20 12:52 DC Fluticasone Propionate (Flonase) 1 spray DAILY NS 10/09/20 09:00 10/11/20 08:01 Multivitamins/ Calcium (Thera-M Plus) 1 tab DAILY PO 10/09/20 09:00 10/11/20 08:01 Acetaminophen (Tylenol) 650 mg PRN Q6HRS PRN PO MILD PAIN / TEMP > 100.3'F 10/08/20 23:15 10/11/20 08:18 Multi-Ingredient Ointment (Analgesic [place]) 1 gunner PRN QID PRN TP MUSCLE PAIN 10/08/20 23:15 Al Hydroxide/Mg Hydroxide (Mylanta Plus Xs) 15 ml PRN AFTMEALHC PRN PO DYSPEPSIA 10/08/20 23:15 10/09/20 00:04 DC Magnesium Hydroxide (Milk Of Magnesia) 2,400 mg PRN QHS PRN PO CONSTIPATION 10/08/20 23:15 10/09/20 00:04 DC Albuterol Sulfate (Ventolin) 2.5 mg PRN Q6HRS PRN NEB SHORTNESS OF BREATH 10/09/20 01:30 Cancel Albuterol Sulfate (Ventolin Hfa Inhaler) 1 puff PRN Q6HRS PRN INH SHORTNESS OF BREATH 10/09/20 13:45 10/11/20 13:32 Olanzapine (ZyPREXA ZYDIS) 2.5 mg PRN Q2HR PRN PO PSYCHOSIS 10/09/20 19:45 [place] Carbonate 300 mg HS PO 10/09/20 21:00 10/11/20 20:27 Calcium Carbonate/ Glycine (Tums) 500 mg PRN AFTMEALHC PRN PO INDIGESTION 10/10/20 17:00 UNV Mirtazapine (Remeron) 7.5 mg QHS PO 10/11/20 21:00 10/11/20 20:28 Trazodone HCl (Desyrel) 25 mg PRN QHS PRN PO INSOMNIA, MAY REPEAT X2 10/11/20 20:00 Current Medications Medications (Trade) Dose Ordered Sig/Jessica Route PRN Reason Start Time Stop Time Status Last Admin Dose Admin Mirtazapine (Remeron) 7.5 mg QHS PO 10/11/20 21:00 10/11/20 20:28 I have reviewed the current psychotropics carefully including drug interactions. Risk benefit ratio favors no change other than as noted in my dictated progress note. Diagnosis: Problems: (1) Impulse control disorder, unspecified (2) Anxiety disorder, unspecified (3) Bipolar disorder, current episode mixed, severe, with psychotic features VARUN CA MD Oct 11, 2020 22:04
[2020-10-11 22:39] LABS: BILIRUBIN,URINE NEG (NEG); CLARITY,URINE CLEAR; COLOR,URINE STRAW; GLUCOSE,URINE NEG (NEG)
[2020-10-11 22:40] LABS: BACTERIA,URINE FEW /HPF (0-FEW); NITRITE,URINE NEG (NEG); RBC,URINE 0 /HPF (0-2); SQUAMOUS EPITHELIAL CELL,UR FEW /LPF; UROBILINOGEN,URINE 0.2 mg/dL (0.2 mg/dL); WBC,URINE 0 /HPF (0-4)
--- NOTE | 2020-10-11 23:06 | NUR ---
Pt located in her room laying in bed this evening. Pt hyperverbal with garbled, rambling speech. Compliant with crushed medications. PRN albuterol inhaler and Lortab administered per pt request.
--- NOTE | 2020-10-11 23:57 | PDOC ---
Exam Note: Evangelist Note: This note is a late entry for 10/10/2020 covers elements not covered in my initial note. Subjective: The patient was seen face to face in the evening of 10/10/2020 with Susan TEJADA, discussed and reviewed the chart. The patient slept 4-1/4 hours previous night. She is doing better on lithium, less demanding, still restless, compliant with medications. She is on BuSpar 5 mg b.i.d. Given her overall clinical picture history, BuSpar may have little beneficial effect for her and we will stop it. Review of Systems: No CV, , pulmonary, eye, ENT system symptoms on review. Mental Status Exam: The patient is reasonably oriented. She is pleasant, verbal, interactive during the individual visit with me in her room, at times hyperverbal but corrects herself. Speech coherent. Abstraction fair. Computation impaired. Language function intact. Attention span short. Mood and affect withdrawn. No suicidal or homicidal ideation. Laboratory Data: Reviewed. Impression: Bipolar disorder, mixed with psychotic features. Anxiety disorder unspecified. Impulse control disorder unspecified. Plan: Continue current psychotropics as indicated. Assessment: Vital Signs/I&O: Vital Signs Date Time Temp Pulse Resp B/P (MAP) Pulse Ox O2 Delivery O2 Flow Rate FiO2 10/11/20 21:40 92 10/11/20 15:36 98.0 64 20 127/80 (96) 10/08/20 22:16 Room Air I & O 10/10/20 10/10/20 10/11/20 15:00 23:00 07:00 Intake Total 840 ml 480 ml Balance 840 ml 480 ml Labs: Laboratory Tests Test 10/11/20 22:20 Urine Collection Type Unknown Urine Color Straw Urine Clarity Clear Urine pH 7.0 Urine Specific [place] 1.010 Urine Protein Neg (NEG-TRACE) Urine Glucose (UA) Neg mg/dL (NEG) Urine Ketones (Stick) Neg mg/dL (NEG) Urine Blood Neg (NEG) Urine Nitrite Neg (NEG) Urine Bilirubin Neg (NEG) Urine Urobilinogen Dipstick 0.2 mg/dL (0.2 mg/dL) Urine Leukocyte Esterase Neg (NEG) Urine RBC 0 /HPF (0-2) Urine WBC 0 /HPF (0-4) Urine Squamous Epithelial Cells Few /LPF Urine Bacteria Few /HPF (0-FEW) Current Medications: Meds: Laboratory Tests Test 10/11/20 22:20 Urine Collection Type Unknown Urine Color Straw Urine Clarity Clear Urine pH 7.0 Urine Specific [place] 1.010 Urine Protein Neg Urine Glucose (UA) Neg mg/dL Urine Ketones (Stick) Neg mg/dL Urine Blood Neg Urine Nitrite Neg Urine Bilirubin Neg Urine Urobilinogen Dipstick 0.2 mg/dL Urine Leukocyte Esterase Neg Urine RBC 0 /HPF Urine WBC 0 /HPF Urine Squamous Epithelial Cells Few /LPF Urine Bacteria Few /HPF Current Medications Medications (Trade) Dose Ordered Sig/Jessica Route PRN Reason Start Time Stop Time Status Last Admin Dose Admin Albuterol Sulfate (Ventolin) 1 mg PRN Q6HRS PRN IH FOR ASTHMA 10/08/20 22:30 10/08/20 22:41 DC Amoxicillin/ Clavulanate Potassium (Augmentin 875/ 125mg) 1 tab BID PO 10/09/20 09:00 10/09/20 12:52 DC Aspirin (Mikal Aspirin) 325 mg DAILY PO 10/09/20 09:00 10/11/20 08:01 Buspirone HCl (Buspar) 5 mg BID PO 10/08/20 23:00 10/10/20 21:00 DC 10/10/20 20:27 Ferrous Sulfate (Feosol) 325 mg BIDWMEALS PO 10/09/20 08:00 10/11/20 17:14 Acetaminophen/ Hydrocodone Bitart (Lortab 5/325) 1 tab PRN Q4HRS PRN PO MODERATE TO SEVERE PAIN 10/08/20 22:30 10/11/20 21:10 Levothyroxine Sodium (Synthroid) 25 mcg WEEKLYAC PO 10/15/20 07:00 10/09/20 12:52 DC Melatonin (Melatonin) 3 mg HS PO 10/08/20 21:00 10/11/20 20:26 Montelukast Sodium (Singulair) 10 mg DAILY PO 10/09/20 09:00 10/11/20 08:01 Polyethylene Glycol (miraLAX) 17 gm PRN DAILY PRN PO CONSTIPATION 10/08/20 22:30 10/11/20 00:04 Prednisone (Prednisone) 20 mg DAILY PO 10/09/20 09:00 10/09/20 14:24 DC 10/09/20 08:13 Risperidone (RisperDAL) 0.5 mg QHS PO 10/08/20 23:00 10/11/20 20:26 Trazodone HCl (Desyrel) 25 mg HS PO 10/08/20 23:00 10/11/20 20:27 Zolpidem Tartrate (Ambien) 5 mg HS PO 10/08/20 23:00 10/11/20 20:28 Non-Formulary Medication (Chlorpheniramine/ Pe/Codeine (Capcof Liquid)) 5 ml PRN Q12HR PRN PO COUGH 10/08/20 22:30 UNV Non-Formulary Medication (Doxycycline Hyclate ) 100 mg BID PO 10/09/20 09:00 10/09/20 12:52 DC Fluticasone Propionate (Flonase) 1 spray DAILY NS 10/09/20 09:00 10/11/20 08:01 Multivitamins/ Calcium (Thera-M Plus) 1 tab DAILY PO 10/09/20 09:00 10/11/20 08:01 Acetaminophen (Tylenol) 650 mg PRN Q6HRS PRN PO MILD PAIN / TEMP > 100.3'F 10/08/20 23:15 10/11/20 08:18 Multi-Ingredient Ointment (Analgesic [place]) 1 gunner PRN QID PRN TP MUSCLE PAIN 10/08/20 23:15 Al Hydroxide/Mg Hydroxide (Mylanta Plus Xs) 15 ml PRN AFTMEALHC PRN PO DYSPEPSIA 10/08/20 23:15 10/09/20 00:04 DC Magnesium Hydroxide (Milk Of Magnesia) 2,400 mg PRN QHS PRN PO CONSTIPATION 10/08/20 23:15 10/09/20 00:04 DC Albuterol Sulfate (Ventolin) 2.5 mg PRN Q6HRS PRN NEB SHORTNESS OF BREATH 10/09/20 01:30 Cancel Albuterol Sulfate (Ventolin Hfa Inhaler) 1 puff PRN Q6HRS PRN INH SHORTNESS OF BREATH 10/09/20 13:45 10/11/20 13:32 Olanzapine (ZyPREXA ZYDIS) 2.5 mg PRN Q2HR PRN PO PSYCHOSIS 10/09/20 19:45 [place] Carbonate 300 mg HS PO 10/09/20 21:00 10/11/20 20:27 Calcium Carbonate/ Glycine (Tums) 500 mg PRN AFTMEALHC PRN PO INDIGESTION 10/10/20 17:00 UNV Mirtazapine (Remeron) 7.5 mg QHS PO 10/11/20 21:00 10/11/20 20:28 Trazodone HCl (Desyrel) 25 mg PRN QHS PRN PO INSOMNIA, MAY REPEAT X2 10/11/20 20:00 Current Medications Medications (Trade) Dose Ordered Sig/Jessica Route PRN Reason Start Time Stop Time Status Last Admin Dose Admin Mirtazapine (Remeron) 7.5 mg QHS PO 10/11/20 21:00 10/11/20 20:28 I have reviewed the current psychotropics carefully including drug interactions. Risk benefit ratio favors no change other than as noted in my dictated progress note. Diagnosis: Problems: (1) Impulse control disorder, unspecified (2) Anxiety disorder, unspecified (3) Bipolar disorder, current episode mixed, severe, with psychotic features VARUN CA MD Oct 11, 2020 23:57
[2020-10-12 06:10] VITALS: BP 128/85
[2020-10-12] MEDS: FERROUS SULFATE 325 MG TABLET. PO SCH ×2 (08:53→17:12)
[2020-10-12] MEDS: ASPIRIN 325 MG TABLET PO SCH (08:53)
[2020-10-12] MEDS: MONTELUKAST 10 MG TABLET. PO SCH (08:53)
[2020-10-12] MEDS: MULTIVITAMIN with MINERAL TABLET. PO SCH (08:53)
[2020-10-12 08:55] LABS: BASO # 0.1 x10^3/uL (0.0-0.2); BASO % 1 % (0-3); EOS # 0.5 x10^3/uL (0.0-0.7); EOS % 7 % (0-3); HEMATOCRIT 28.5 % (36.0-47.0); HEMOGLOBIN 9.2 g/dL (12.0-15.5); LYMPH # 1.8 x10^3/uL (1.0-4.8); LYMPH % 29 % (24-48); MEAN CORPUSCULAR HEMOGLOBIN 32 pg (25-35); MEAN CORPUSCULAR HGB CONC 32 g/dL (31-37); MEAN CORPUSCULAR VOLUME 97 fL (79-100); MONO # 0.7 x10^3/uL (0.0-1.1); MONO % 11 % (0-9); NEUT # 3.2 x10^3uL (1.8-7.7); NEUT % 52 % (31-73); PLATELET COUNT 254 x10^3/uL (140-400); RED BLOOD COUNT 2.94 x10^6/uL (3.50-5.40); RED CELL DISTRIBUTION WIDTH 16.6 % (11.5-14.5); WHITE BLOOD COUNT 6.2 x10^3/uL (4.0-11.0)
[2020-10-12] MEDS: FLUTICASONE 50MCG/NASAL SPRAY 16GM BOTTLE. NS SCH (08:58)
[2020-10-12] MEDS: ACETAMINOPHEN 325 MG TABLET PO PRN ×2 (09:03→15:48)
[2020-10-12 09:09] LABS: ALBUMIN/GLOBULIN RATIO 0.9 (1.0-1.7); CALCIUM 9.9 mg/dL (8.5-10.1); CREATININE 1.1 mg/dL (0.6-1.0); GFR 49.8; POTASSIUM 4.2 mmol/L (3.5-5.1); TOTAL BILIRUBIN 0.2 mg/dL (0.2-1.0); TOTAL PROTEIN 6.4 g/dL (6.4-8.2)
--- NOTE | 2020-10-12 14:31 | NUR ---
Nursing note: Patient in bed room for morning medication & assessment, meds taken whole. She has been restless today with some irritation about not being able to leave to go shopping, and attention seeking. She request information but interrupts this nurse when trying to answer. Patient often requests for misc items and food. She has had several phone calls from family as well as requesting to call family. She is currently laying down in bed resting. Will continue to monitor.
[2020-10-12] MEDS: ALBUTEROL SULFATE 8GM INHALER. INH PRN (15:47)
[2020-10-12 15:58] VITALS: BP 134/82
[2020-10-12] MEDS: risperiDONE 0.5 MG TABLET. PO SCH (19:45)
[2020-10-12] MEDS: MELATONIN 3 MG TABLET PO SCH (19:45)
[2020-10-12] MEDS: LITHIUM CARBONATE 300 MG TABLET PO SCH (19:45)
[2020-10-12] MEDS: traZODone 50 MG TABLET. PO SCH (19:45)
[2020-10-12] MEDS: MIRTAZAPINE 7.5 MG TABLET. PO SCH (19:45)
[2020-10-12] MEDS: ZOLPIDEM 5 MG TABLET. PO SCH (19:46)
--- NOTE | 2020-10-12 22:22 | PDOC ---
Exam Note: Evangelist Note: Please also refer to the separate dictated note~for this date of service dictated separately.~Patient seen individually. Discussed the patient with Nursing staff reviewed the chart.~Reviewed interim history and current functioning. Reviewed vital signs,~Labs/ Radiology~and current medications noted below. Continue current treatment with the changes noted in the dictated addendum note Assessment: Vital Signs/I&O: Vital Signs Date Time Temp Pulse Resp B/P (MAP) Pulse Ox O2 Delivery O2 Flow Rate FiO2 10/12/20 15:58 98.1 88 20 134/82 (99) 95 10/08/20 22:16 Room Air I & O 10/11/20 10/11/20 10/12/20 15:00 23:00 07:00 Intake Total 480 ml 240 ml 240 ml Balance 480 ml 240 ml 240 ml Labs: Laboratory Tests Test 10/12/20 08:35 White Blood Count 6.2 x10^3/uL (4.0-11.0) Red Blood Count 2.94 x10^6/uL (3.50-5.40) L Hemoglobin 9.2 g/dL (12.0-15.5) L Hematocrit 28.5 % (36.0-47.0) L Mean Corpuscular Volume 97 fL (79-100) Mean Corpuscular Hemoglobin 32 pg (25-35) Mean Corpuscular Hemoglobin Concent 32 g/dL (31-37) Red Cell Distribution Width 16.6 % (11.5-14.5) H Platelet Count 254 x10^3/uL (140-400) Neutrophils (%) (Auto) 52 % (31-73) Lymphocytes (%) (Auto) 29 % (24-48) Monocytes (%) (Auto) 11 % (0-9) H Eosinophils (%) (Auto) 7 % (0-3) H Basophils (%) (Auto) 1 % (0-3) Neutrophils # (Auto) 3.2 x10^3uL (1.8-7.7) Lymphocytes # (Auto) 1.8 x10^3/uL (1.0-4.8) Monocytes # (Auto) 0.7 x10^3/uL (0.0-1.1) Eosinophils # (Auto) 0.5 x10^3/uL (0.0-0.7) Basophils # (Auto) 0.1 x10^3/uL (0.0-0.2) Sodium Level 142 mmol/L (136-145) Potassium Level 4.2 mmol/L (3.5-5.1) Chloride Level 110 mmol/L (98-107) H Carbon Dioxide Level 21 mmol/L (21-32) Anion Gap 11 (6-14) Blood Urea Nitrogen 14 mg/dL (7-20) Creatinine 1.1 mg/dL (0.6-1.0) H Estimated GFR (Cockcroft-Gault) 49.8 BUN/Creatinine Ratio 13 (6-20) Glucose Level 140 mg/dL (70-99) H Calcium Level 9.9 mg/dL (8.5-10.1) Total Bilirubin 0.2 mg/dL (0.2-1.0) Aspartate Amino Transferase (AST) 21 U/L (15-37) Alanine Aminotransferase (ALT) 39 U/L (14-59) Alkaline Phosphatase 79 U/L (46-116) Total Protein 6.4 g/dL (6.4-8.2) Albumin 3.0 g/dL (3.4-5.0) L Albumin/Globulin Ratio 0.9 (1.0-1.7) L Welch Level 0.4 mmol/L (0.6-1.2) L Welch Last Dose Date 10/11/20 [place] Last Dose Time 2100 Current Medications: Meds: Laboratory Tests Test 10/12/20 08:35 White Blood Count 6.2 x10^3/uL Red Blood Count 2.94 x10^6/uL Hemoglobin 9.2 g/dL Hematocrit 28.5 % Mean Corpuscular Volume 97 fL Mean Corpuscular Hemoglobin 32 pg Mean Corpuscular Hemoglobin Concent 32 g/dL Red Cell Distribution Width 16.6 % Platelet Count 254 x10^3/uL Neutrophils (%) (Auto) 52 % Lymphocytes (%) (Auto) 29 % Monocytes (%) (Auto) 11 % Eosinophils (%) (Auto) 7 % Basophils (%) (Auto) 1 % Neutrophils # (Auto) 3.2 x10^3uL Lymphocytes # (Auto) 1.8 x10^3/uL Monocytes # (Auto) 0.7 x10^3/uL Eosinophils # (Auto) 0.5 x10^3/uL Basophils # (Auto) 0.1 x10^3/uL Sodium Level 142 mmol/L Potassium Level 4.2 mmol/L Chloride Level 110 mmol/L Carbon Dioxide Level 21 mmol/L Anion Gap 11 Blood Urea Nitrogen 14 mg/dL Creatinine 1.1 mg/dL Estimated GFR (Cockcroft-Gault) 49.8 BUN/Creatinine Ratio 13 Glucose Level 140 mg/dL Calcium Level 9.9 mg/dL Total Bilirubin 0.2 mg/dL Aspartate Amino Transf (AST/SGOT) 21 U/L Alanine Aminotransferase (ALT/SGPT) 39 U/L Alkaline Phosphatase 79 U/L Total Protein 6.4 g/dL Albumin 3.0 g/dL Albumin/Globulin Ratio 0.9 [place] Level 0.4 mmol/L [place] Last Dose Date 10/11/20 [place] Last Dose Time 2100 Current Medications Medications (Trade) Dose Ordered Sig/Jessica Route PRN Reason Start Time Stop Time Status Last Admin Dose Admin Albuterol Sulfate (Ventolin) 1 mg PRN Q6HRS PRN IH FOR ASTHMA 10/08/20 22:30 10/08/20 22:41 DC Amoxicillin/ Clavulanate Potassium (Augmentin 875/ 125mg) 1 tab BID PO 10/09/20 09:00 10/09/20 12:52 DC Aspirin (Mikal Aspirin) 325 mg DAILY PO 10/09/20 09:00 10/12/20 08:53 Buspirone HCl (Buspar) 5 mg BID PO 10/08/20 23:00 10/10/20 21:00 DC 10/10/20 20:27 Ferrous Sulfate (Feosol) 325 mg BIDWMEALS PO 10/09/20 08:00 10/12/20 17:12 Acetaminophen/ Hydrocodone Bitart (Lortab 5/325) 1 tab PRN Q4HRS PRN PO MODERATE TO SEVERE PAIN 10/08/20 22:30 10/11/20 21:10 Levothyroxine Sodium (Synthroid) 25 mcg WEEKLYAC PO 10/15/20 07:00 10/09/20 12:52 DC Melatonin (Melatonin) 3 mg HS PO 10/08/20 21:00 10/12/20 19:45 Montelukast Sodium (Singulair) 10 mg DAILY PO 10/09/20 09:00 10/12/20 08:53 Polyethylene Glycol (miraLAX) 17 gm PRN DAILY PRN PO CONSTIPATION 10/08/20 22:30 10/11/20 00:04 Prednisone (Prednisone) 20 mg DAILY PO 10/09/20 09:00 10/09/20 14:24 DC 10/09/20 08:13 Risperidone (RisperDAL) 0.5 mg QHS PO 10/08/20 23:00 10/12/20 19:45 Trazodone HCl (Desyrel) 25 mg HS PO 10/08/20 23:00 10/12/20 19:45 Zolpidem Tartrate (Ambien) 5 mg HS PO 10/08/20 23:00 10/12/20 19:46 Non-Formulary Medication (Chlorpheniramine/ Pe/Codeine (Capcof Liquid)) 5 ml PRN Q12HR PRN PO COUGH 10/08/20 22:30 UNV Non-Formulary Medication (Doxycycline Hyclate ) 100 mg BID PO 10/09/20 09:00 10/09/20 12:52 DC Fluticasone Propionate (Flonase) 1 spray DAILY NS 10/09/20 09:00 10/12/20 08:58 Multivitamins/ Calcium (Thera-M Plus) 1 tab DAILY PO 10/09/20 09:00 10/12/20 08:53 Acetaminophen (Tylenol) 650 mg PRN Q6HRS PRN PO MILD PAIN / TEMP > 100.3'F 10/08/20 23:15 10/12/20 15:48 Multi-Ingredient Ointment (Analgesic [place]) 1 gunner PRN QID PRN TP MUSCLE PAIN 10/08/20 23:15 Al Hydroxide/Mg Hydroxide (Mylanta Plus Xs) 15 ml PRN AFTMEALHC PRN PO DYSPEPSIA 10/08/20 23:15 10/09/20 00:04 DC Magnesium Hydroxide (Milk Of Magnesia) 2,400 mg PRN QHS PRN PO CONSTIPATION 10/08/20 23:15 10/09/20 00:04 DC Albuterol Sulfate (Ventolin) 2.5 mg PRN Q6HRS PRN NEB SHORTNESS OF BREATH 10/09/20 01:30 Cancel Albuterol Sulfate (Ventolin Hfa Inhaler) 1 puff PRN Q6HRS PRN INH SHORTNESS OF BREATH 10/09/20 13:45 10/12/20 15:47 Olanzapine (ZyPREXA ZYDIS) 2.5 mg PRN Q2HR PRN PO PSYCHOSIS 10/09/20 19:45 [place] Carbonate 300 mg HS PO 10/09/20 21:00 10/12/20 19:45 Calcium Carbonate/ Glycine (Tums) 500 mg PRN AFTMEALHC PRN PO INDIGESTION 10/10/20 17:00 UNV Mirtazapine (Remeron) 7.5 mg QHS PO 10/11/20 21:00 10/12/20 19:45 Trazodone HCl (Desyrel) 25 mg PRN QHS PRN PO INSOMNIA, MAY REPEAT X2 10/11/20 20:00 [place] Carbonate 150 mg DAILY PO 10/13/20 09:00 I have reviewed the current psychotropics carefully including drug interactions. Risk benefit ratio favors no change other than as noted in my dictated progress note. Diagnosis: Problems: (1) Impulse control disorder, unspecified (2) Anxiety disorder, unspecified (3) Bipolar disorder, current episode mixed, severe, with psychotic features VARUN CA MD Oct 12, 2020 22:22
--- NOTE | 2020-10-13 00:27 | NUR ---
Nursing note: When approaching patient with meds, she starts the conversation with multitude of demands. "I need ice water, i need ice right now, I need more gator aid, who are you, can I leave, I'm hungry, can you get me a blanket? Whats your name? I need some clothes, wheres my shoes??" All of this prior to me even introducing myself. I reminded her of my task at hand, which was meds and my assessment of her. Pt continues to talk during my assessment of her lungs. I asked her to pause for a moment while I listened. She did comply for 1 deep breath, then began talking excessively again. She talks non stop with some of it being word salad. Pt is med compliant.
[2020-10-13 06:02] VITALS: BP 106/67
[2020-10-13] MEDS: FLUTICASONE 50MCG/NASAL SPRAY 16GM BOTTLE. NS SCH (08:05)
[2020-10-13] MEDS: MONTELUKAST 10 MG TABLET. PO SCH (08:06)
[2020-10-13] MEDS: ASPIRIN 325 MG TABLET PO SCH (08:06)
[2020-10-13] MEDS: LITHIUM CARBONATE 300 MG TABLET PO SCH ×2 (08:06→19:37)
[2020-10-13] MEDS: MULTIVITAMIN with MINERAL TABLET. PO SCH (08:06)
[2020-10-13] MEDS: FERROUS SULFATE 325 MG TABLET. PO SCH ×2 (08:06→17:11)
--- NOTE | 2020-10-13 10:11 | PDOC ---
Exam Note: Evangelist Note: This note is a late entry for 10/11/2020 covers elements not covered in my initial note. Subjective: The patient was seen individually in the evening of 10/11/2020 with Isabel TEJADA, discussed and reviewed the chart. The patient slept 2-3/4 hours previous night. She was quite demanding previous night. She is anxious, hyperverbal, hypomanic at times, restless, attention seeking. Review of Systems: Positive for the anxiety. No CV, , pulmonary, eye, ENT system symptoms on review. She does have some tardive dyskinetic movements. Mental Status Exam: The patient is reasonably oriented. Speech coherent, rapid at times. Abstraction fair. Computation impaired. Language function intact. Attention span short. Mood and affect anxious, labile. No suicidal or homicidal ideation. Laboratory Data: Reviewed. Impression: Bipolar disorder, manic with psychotic features. Anxiety disorder unspecified. Tardive dyskinesia. Impulse control disorder unspecified. Plan: We will increase trazodone from 25 mg h.s. to 25 mg h.s. plus may repeat x2 p.r.n. insomnia and also start Remeron 7.5 mg h.s. Continue lithium 300 mg h.s. Check CBC, CMP, lithium level on . Adjust to reach therapeutic level. Continue rest psychotropics as indicated in initial note. Assessment: Vital Signs/I&O: Vital Signs Date Time Temp Pulse Resp B/P (MAP) Pulse Ox O2 Delivery O2 Flow Rate FiO2 10/13/20 06:02 97.5 77 20 106/67 (80) 99 10/08/20 22:16 Room Air I & O 10/12/20 10/12/20 10/13/20 15:00 23:00 07:00 Intake Total 960 ml 1200 ml Balance 960 ml 1200 ml Current Medications: Meds: Current Medications Medications (Trade) Dose Ordered Sig/Jessica Route PRN Reason Start Time Stop Time Status Last Admin Dose Admin Albuterol Sulfate (Ventolin) 1 mg PRN Q6HRS PRN IH FOR ASTHMA 10/08/20 22:30 10/08/20 22:41 DC Amoxicillin/ Clavulanate Potassium (Augmentin 875/ 125mg) 1 tab BID PO 10/09/20 09:00 10/09/20 12:52 DC Aspirin (Mikal Aspirin) 325 mg DAILY PO 10/09/20 09:00 10/13/20 08:06 Buspirone HCl (Buspar) 5 mg BID PO 10/08/20 23:00 10/10/20 21:00 DC 10/10/20 20:27 Ferrous Sulfate (Feosol) 325 mg BIDWMEALS PO 10/09/20 08:00 10/13/20 08:06 Acetaminophen/ Hydrocodone Bitart (Lortab 5/325) 1 tab PRN Q4HRS PRN PO MODERATE TO SEVERE PAIN 10/08/20 22:30 10/11/20 21:10 Levothyroxine Sodium (Synthroid) 25 mcg WEEKLYAC PO 10/15/20 07:00 10/09/20 12:52 DC Melatonin (Melatonin) 3 mg HS PO 10/08/20 21:00 10/12/20 19:45 Montelukast Sodium (Singulair) 10 mg DAILY PO 10/09/20 09:00 10/13/20 08:06 Polyethylene Glycol (miraLAX) 17 gm PRN DAILY PRN PO CONSTIPATION 10/08/20 22:30 10/11/20 00:04 Prednisone (Prednisone) 20 mg DAILY PO 10/09/20 09:00 10/09/20 14:24 DC 10/09/20 08:13 Risperidone (RisperDAL) 0.5 mg QHS PO 10/08/20 23:00 10/12/20 19:45 Trazodone HCl (Desyrel) 25 mg HS PO 10/08/20 23:00 10/12/20 19:45 Zolpidem Tartrate (Ambien) 5 mg HS PO 10/08/20 23:00 10/12/20 19:46 Non-Formulary Medication (Chlorpheniramine/ Pe/Codeine (Capcof Liquid)) 5 ml PRN Q12HR PRN PO COUGH 10/08/20 22:30 UNV Non-Formulary Medication (Doxycycline Hyclate ) 100 mg BID PO 10/09/20 09:00 10/09/20 12:52 DC Fluticasone Propionate (Flonase) 1 spray DAILY NS 10/09/20 09:00 10/13/20 08:05 Multivitamins/ Calcium (Thera-M Plus) 1 tab DAILY PO 10/09/20 09:00 10/13/20 08:06 Acetaminophen (Tylenol) 650 mg PRN Q6HRS PRN PO MILD PAIN / TEMP > 100.3'F 10/08/20 23:15 10/12/20 15:48 Multi-Ingredient Ointment (Analgesic [place]) 1 gunner PRN QID PRN TP MUSCLE PAIN 10/08/20 23:15 Al Hydroxide/Mg Hydroxide (Mylanta Plus Xs) 15 ml PRN AFTMEALHC PRN PO DYSPEPSIA 10/08/20 23:15 10/09/20 00:04 DC Magnesium Hydroxide (Milk Of Magnesia) 2,400 mg PRN QHS PRN PO CONSTIPATION 10/08/20 23:15 10/09/20 00:04 DC Albuterol Sulfate (Ventolin) 2.5 mg PRN Q6HRS PRN NEB SHORTNESS OF BREATH 10/09/20 01:30 Cancel Albuterol Sulfate (Ventolin Hfa Inhaler) 1 puff PRN Q6HRS PRN INH SHORTNESS OF BREATH 10/09/20 13:45 10/12/20 15:47 Olanzapine (ZyPREXA ZYDIS) 2.5 mg PRN Q2HR PRN PO PSYCHOSIS 10/09/20 19:45 [place] Carbonate 300 mg HS PO 10/09/20 21:00 10/12/20 19:45 Calcium Carbonate/ Glycine (Tums) 500 mg PRN AFTMEALHC PRN PO INDIGESTION 10/10/20 17:00 UNV Mirtazapine (Remeron) 7.5 mg QHS PO 10/11/20 21:00 10/12/20 19:45 Trazodone HCl (Desyrel) 25 mg PRN QHS PRN PO INSOMNIA, MAY REPEAT X2 10/11/20 20:00 [place] Carbonate 150 mg DAILY PO 10/13/20 09:00 10/13/20 08:06 Current Medications Medications (Trade) Dose Ordered Sig/Jessica Route PRN Reason Start Time Stop Time Status Last Admin Dose Admin [place] Carbonate 150 mg DAILY PO 10/13/20 09:00 10/13/20 08:06 I have reviewed the current psychotropics carefully including drug interactions. Risk benefit ratio favors no change other than as noted in my dictated progress note. Diagnosis: Problems: (1) Impulse control disorder, unspecified (2) Anxiety disorder, unspecified (3) Bipolar disorder, current episode mixed, severe, with psychotic features VARUN CA MD Oct 13, 2020 10:11
[2020-10-13] MEDS: ALBUTEROL SULFATE 8GM INHALER. INH PRN ×2 (11:45→20:25)
--- NOTE | 2020-10-13 14:36 | NUR ---
Nursing note: Patient in hallway for morning medication & assessment, meds taken whole. She has been restless today. She request information but interrupts this nurse when trying to answer. Patient often requests for misc items and food. She is currently laying down in bed resting. Will continue to monitor.
[2020-10-13] MEDS: ACETAMINOPHEN 325 MG TABLET PO PRN (15:37)
[2020-10-13 16:08] VITALS: BP 117/81
[2020-10-13] MEDS: ZOLPIDEM 5 MG TABLET. PO SCH (19:36)
[2020-10-13] MEDS: MIRTAZAPINE 7.5 MG TABLET. PO SCH (19:36)
[2020-10-13] MEDS: risperiDONE 0.5 MG TABLET. PO SCH (19:36)
[2020-10-13] MEDS: traZODone 50 MG TABLET. PO SCH (19:37)
[2020-10-13] MEDS: MELATONIN 3 MG TABLET PO SCH (19:37)
[2020-10-13] MEDS: DOCUSATE SODIUM 100 MG CAPSULE PO SCH ×2 (20:25→20:26)
--- NOTE | 2020-10-13 22:08 | PDOC ---
Exam Note: Evangelist Note: Please also refer to the separate dictated note~for this date of service dictated separately.~Patient seen individually. Discussed the patient with Nursing staff reviewed the chart.~Reviewed interim history and current functioning. Reviewed vital signs,~Labs/ Radiology~and current medications noted below. Continue current treatment with the changes noted in the dictated addendum note Assessment: Vital Signs/I&O: Vital Signs Date Time Temp Pulse Resp B/P (MAP) Pulse Ox O2 Delivery O2 Flow Rate FiO2 10/13/20 16:08 98.0 95 20 117/81 (93) 93 10/08/20 22:16 Room Air I & O 10/12/20 10/12/20 10/13/20 15:00 23:00 07:00 Intake Total 960 ml 1200 ml Balance 960 ml 1200 ml Current Medications: Meds: Current Medications Medications (Trade) Dose Ordered Sig/Jessica Route PRN Reason Start Time Stop Time Status Last Admin Dose Admin Albuterol Sulfate (Ventolin) 1 mg PRN Q6HRS PRN IH FOR ASTHMA 10/08/20 22:30 10/08/20 22:41 DC Amoxicillin/ Clavulanate Potassium (Augmentin 875/ 125mg) 1 tab BID PO 10/09/20 09:00 10/09/20 12:52 DC Aspirin (Mikal Aspirin) 325 mg DAILY PO 10/09/20 09:00 10/13/20 08:06 Buspirone HCl (Buspar) 5 mg BID PO 10/08/20 23:00 10/10/20 21:00 DC 10/10/20 20:27 Ferrous Sulfate (Feosol) 325 mg BIDWMEALS PO 10/09/20 08:00 10/13/20 17:11 Acetaminophen/ Hydrocodone Bitart (Lortab 5/325) 1 tab PRN Q4HRS PRN PO MODERATE TO SEVERE PAIN 10/08/20 22:30 10/11/20 21:10 Levothyroxine Sodium (Synthroid) 25 mcg WEEKLYAC PO 10/15/20 07:00 10/09/20 12:52 DC Melatonin (Melatonin) 3 mg HS PO 10/08/20 21:00 10/13/20 19:37 Montelukast Sodium (Singulair) 10 mg DAILY PO 10/09/20 09:00 10/13/20 08:06 Polyethylene Glycol (miraLAX) 17 gm PRN DAILY PRN PO CONSTIPATION 10/08/20 22:30 10/11/20 00:04 Prednisone (Prednisone) 20 mg DAILY PO 10/09/20 09:00 10/09/20 14:24 DC 10/09/20 08:13 Risperidone (RisperDAL) 0.5 mg QHS PO 10/08/20 23:00 10/13/20 19:36 Trazodone HCl (Desyrel) 25 mg HS PO 10/08/20 23:00 10/13/20 19:37 Zolpidem Tartrate (Ambien) 5 mg HS PO 10/08/20 23:00 10/13/20 19:36 Non-Formulary Medication (Chlorpheniramine/ Pe/Codeine (Capcof Liquid)) 5 ml PRN Q12HR PRN PO COUGH 10/08/20 22:30 UNV Non-Formulary Medication (Doxycycline Hyclate ) 100 mg BID PO 10/09/20 09:00 10/09/20 12:52 DC Fluticasone Propionate (Flonase) 1 spray DAILY NS 10/09/20 09:00 10/13/20 08:05 Multivitamins/ Calcium (Thera-M Plus) 1 tab DAILY PO 10/09/20 09:00 10/13/20 08:06 Acetaminophen (Tylenol) 650 mg PRN Q6HRS PRN PO MILD PAIN / TEMP > 100.3'F 10/08/20 23:15 10/13/20 15:37 Multi-Ingredient Ointment (Analgesic [place]) 1 gunner PRN QID PRN TP MUSCLE PAIN 10/08/20 23:15 Al Hydroxide/Mg Hydroxide (Mylanta Plus Xs) 15 ml PRN AFTMEALHC PRN PO DYSPEPSIA 10/08/20 23:15 10/09/20 00:04 DC Magnesium Hydroxide (Milk Of Magnesia) 2,400 mg PRN QHS PRN PO CONSTIPATION 10/08/20 23:15 10/09/20 00:04 DC Albuterol Sulfate (Ventolin) 2.5 mg PRN Q6HRS PRN NEB SHORTNESS OF BREATH 10/09/20 01:30 Cancel Albuterol Sulfate (Ventolin Hfa Inhaler) 1 puff PRN Q6HRS PRN INH SHORTNESS OF BREATH 10/09/20 13:45 10/13/20 20:25 Olanzapine (ZyPREXA ZYDIS) 2.5 mg PRN Q2HR PRN PO PSYCHOSIS 10/09/20 19:45 [place] Carbonate 300 mg HS PO 10/09/20 21:00 10/13/20 19:37 Calcium Carbonate/ Glycine (Tums) 500 mg PRN AFTMEALHC PRN PO INDIGESTION 10/10/20 17:00 UNV Mirtazapine (Remeron) 7.5 mg QHS PO 10/11/20 21:00 10/13/20 19:36 Trazodone HCl (Desyrel) 25 mg PRN QHS PRN PO INSOMNIA, MAY REPEAT X2 10/11/20 20:00 [place] Carbonate 150 mg DAILY PO 10/13/20 09:00 10/13/20 08:06 Docusate Sodium (Colace) 100 mg HS PO 10/13/20 20:15 10/13/20 20:26 Current Medications Medications (Trade) Dose Ordered Sig/Jessica Route PRN Reason Start Time Stop Time Status Last Admin Dose Admin [place] Carbonate 150 mg DAILY PO 10/13/20 09:00 10/13/20 08:06 Docusate Sodium (Colace) 100 mg HS PO 10/13/20 20:15 10/13/20 20:26 I have reviewed the current psychotropics carefully including drug interactions. Risk benefit ratio favors no change other than as noted in my dictated progress note. Diagnosis: Problems: (1) Impulse control disorder, unspecified (2) Anxiety disorder, unspecified (3) Bipolar disorder, current episode mixed, severe, with psychotic features VARUN CA MD Oct 13, 2020 22:08
--- NOTE | 2020-10-13 23:12 | NUR ---
Nursing Note Pt requesting colace and her inhaler this pm. Lungs are clear but feels soa, ordered her colace for constipation. Pt not as hyperverbal pleasant and cooperative this pm. She is making more sense and not as demanding.
[2020-10-14 05:43] VITALS: BP 130/79
[2020-10-14] MEDS: ALBUTEROL SULFATE 8GM INHALER. INH PRN (08:02)
[2020-10-14] MEDS: FLUTICASONE 50MCG/NASAL SPRAY 16GM BOTTLE. NS SCH (08:02)
[2020-10-14] MEDS: ASPIRIN 325 MG TABLET PO SCH (08:03)
[2020-10-14] MEDS: LITHIUM CARBONATE 300 MG TABLET PO SCH ×2 (08:03→21:50)
[2020-10-14] MEDS: MONTELUKAST 10 MG TABLET. PO SCH (08:03)
[2020-10-14] MEDS: MULTIVITAMIN with MINERAL TABLET. PO SCH (08:03)
[2020-10-14] MEDS: FERROUS SULFATE 325 MG TABLET. PO SCH ×2 (08:03→17:03)
--- NOTE | 2020-10-14 08:29 | PDOC ---
Exam Note: Evangelist Note: This note is a late entry for 10/12/2020 covers elements not covered in my initial note. Subjective: The patient was seen individually in the evening of 10/12/2020 with Mery TEJADA, discussed and reviewed the chart. The patient slept 6-1/2 hours previous night. Her lithium level is 0.4. She remains somewhat hyperverbal, anxious, impulsive, loud at times, grandiose consistent with her anjel/hypomania. Review of Systems: Positive for some constipation. No CV, , pulmonary, eye, ENT system symptoms on review. Mental Status Exam: The patient is reasonably oriented. Speech coherent, rapid at times. Abstraction fair. Computation impaired. Language function intact. Attention span short. She can be quite loud at times. No suicidal or homicidal ideation. Laboratory Data: Reviewed. Impression: Bipolar disorder, manic with psychotic features. Anxiety disorder unspecified. Early signs of tardive dyskinesia. Impulse control disorder unspecified. Plan: [place] level is 0.4 on 300 mg h.s. We will add 150 mg a.m. Check CBC, CMP, lithium level in 3 days. Maintain Risperdal, Ambien, trazodone, melatonin along with Zyprexa p.r..n. unchanged. Assessment: Vital Signs/I&O: Vital Signs Date Time Temp Pulse Resp B/P (MAP) Pulse Ox O2 Delivery O2 Flow Rate FiO2 10/14/20 05:43 97.8 100 18 130/79 (96) 97 10/08/20 22:16 Room Air I & O 10/13/20 10/13/20 10/14/20 15:00 23:00 07:00 Intake Total 960 ml 1080 ml Balance 960 ml 1080 ml Current Medications: Meds: Current Medications Medications (Trade) Dose Ordered Sig/Jessica Route PRN Reason Start Time Stop Time Status Last Admin Dose Admin Albuterol Sulfate (Ventolin) 1 mg PRN Q6HRS PRN IH FOR ASTHMA 10/08/20 22:30 10/08/20 22:41 DC Amoxicillin/ Clavulanate Potassium (Augmentin 875/ 125mg) 1 tab BID PO 10/09/20 09:00 10/09/20 12:52 DC Aspirin (Mikal Aspirin) 325 mg DAILY PO 10/09/20 09:00 10/14/20 08:03 Buspirone HCl (Buspar) 5 mg BID PO 10/08/20 23:00 10/10/20 21:00 DC 10/10/20 20:27 Ferrous Sulfate (Feosol) 325 mg BIDWMEALS PO 10/09/20 08:00 10/14/20 08:03 Acetaminophen/ Hydrocodone Bitart (Lortab 5/325) 1 tab PRN Q4HRS PRN PO MODERATE TO SEVERE PAIN 10/08/20 22:30 10/11/20 21:10 Levothyroxine Sodium (Synthroid) 25 mcg WEEKLYAC PO 10/15/20 07:00 10/09/20 12:52 DC Melatonin (Melatonin) 3 mg HS PO 10/08/20 21:00 10/13/20 19:37 Montelukast Sodium (Singulair) 10 mg DAILY PO 10/09/20 09:00 10/14/20 08:03 Polyethylene Glycol (miraLAX) 17 gm PRN DAILY PRN PO CONSTIPATION 10/08/20 22:30 10/11/20 00:04 Prednisone (Prednisone) 20 mg DAILY PO 10/09/20 09:00 10/09/20 14:24 DC 10/09/20 08:13 Risperidone (RisperDAL) 0.5 mg QHS PO 10/08/20 23:00 10/13/20 19:36 Trazodone HCl (Desyrel) 25 mg HS PO 10/08/20 23:00 10/13/20 19:37 Zolpidem Tartrate (Ambien) 5 mg HS PO 10/08/20 23:00 10/13/20 19:36 Non-Formulary Medication (Chlorpheniramine/ Pe/Codeine (Capcof Liquid)) 5 ml PRN Q12HR PRN PO COUGH 10/08/20 22:30 UNV Non-Formulary Medication (Doxycycline Hyclate ) 100 mg BID PO 10/09/20 09:00 10/09/20 12:52 DC Fluticasone Propionate (Flonase) 1 spray DAILY NS 10/09/20 09:00 10/14/20 08:02 Multivitamins/ Calcium (Thera-M Plus) 1 tab DAILY PO 10/09/20 09:00 10/14/20 08:03 Acetaminophen (Tylenol) 650 mg PRN Q6HRS PRN PO MILD PAIN / TEMP > 100.3'F 10/08/20 23:15 10/13/20 15:37 Multi-Ingredient Ointment (Analgesic [place]) 1 gunner PRN QID PRN TP MUSCLE PAIN 10/08/20 23:15 Al Hydroxide/Mg Hydroxide (Mylanta Plus Xs) 15 ml PRN AFTMEALHC PRN PO DYSPEPSIA 10/08/20 23:15 10/09/20 00:04 DC Magnesium Hydroxide (Milk Of Magnesia) 2,400 mg PRN QHS PRN PO CONSTIPATION 10/08/20 23:15 10/09/20 00:04 DC Albuterol Sulfate (Ventolin) 2.5 mg PRN Q6HRS PRN NEB SHORTNESS OF BREATH 10/09/20 01:30 Cancel Albuterol Sulfate (Ventolin Hfa Inhaler) 1 puff PRN Q6HRS PRN INH SHORTNESS OF BREATH 10/09/20 13:45 10/14/20 08:02 Olanzapine (ZyPREXA ZYDIS) 2.5 mg PRN Q2HR PRN PO PSYCHOSIS 10/09/20 19:45 [place] Carbonate 300 mg HS PO 10/09/20 21:00 10/13/20 19:37 Calcium Carbonate/ Glycine (Tums) 500 mg PRN AFTMEALHC PRN PO INDIGESTION 10/10/20 17:00 UNV Mirtazapine (Remeron) 7.5 mg QHS PO 10/11/20 21:00 10/13/20 19:36 Trazodone HCl (Desyrel) 25 mg PRN QHS PRN PO INSOMNIA, MAY REPEAT X2 10/11/20 20:00 [place] Carbonate 150 mg DAILY PO 10/13/20 09:00 10/14/20 08:03 Docusate Sodium (Colace) 100 mg HS PO 10/13/20 20:15 10/13/20 20:26 Current Medications Medications (Trade) Dose Ordered Sig/Jessica Route PRN Reason Start Time Stop Time Status Last Admin Dose Admin [place] Carbonate 150 mg DAILY PO 10/13/20 09:00 10/14/20 08:03 Docusate Sodium (Colace) 100 mg HS PO 10/13/20 20:15 10/13/20 20:26 I have reviewed the current psychotropics carefully including drug interactions. Risk benefit ratio favors no change other than as noted in my dictated progress note. Diagnosis: Problems: (1) Impulse control disorder, unspecified (2) Anxiety disorder, unspecified (3) Bipolar disorder, current episode mixed, severe, with psychotic features VARUN CA MD Oct 14, 2020 08:29
--- NOTE | 2020-10-14 08:45 | PDOC ---
Exam Note: Evangelist Note: This note is a late entry for 10/13/2020 covers elements not covered in my initial note. Subjective: The patient was seen individually in the evening of 10/13/2020 with Mery TEJADA, discussed and reviewed the chart. The patient slept 3-1/2 hours previous night. She remains hyperverbal and again complains of constipation. We will treat symptomatically. She has been demanding at times. Review of Systems: No CV, , pulmonary, eye, ENT system symptoms on review. Positive for constipation. Mental Status Exam: The patient is alert and oriented. She remains hy perverbal, anxious, impulsive, somewhat fixated on discharge and we addressed at length. Speech coherent, rapid at times. Abstraction fair. Computation impaired. Language function intact. Attention span short. No suicidal or homicidal ideation. Laboratory Data: Reviewed. Impression: Bipolar disorder, manic with psychotic features. Anxiety disorder unspecified. Early signs of tardive dyskinesia. Impulse control disorder unspecified. Plan: Continue the increased lithium. Follow labs and lithium level. Treat constipation symptomatically. Adjust further as clinically indicated. Assessment: Vital Signs/I&O: Vital Signs Date Time Temp Pulse Resp B/P (MAP) Pulse Ox O2 Delivery O2 Flow Rate FiO2 10/14/20 05:43 97.8 100 18 130/79 (96) 97 10/08/20 22:16 Room Air I & O 10/13/20 10/13/20 10/14/20 15:00 23:00 07:00 Intake Total 960 ml 1080 ml Balance 960 ml 1080 ml Current Medications: Meds: Current Medications Medications (Trade) Dose Ordered Sig/Jessica Route PRN Reason Start Time Stop Time Status Last Admin Dose Admin Albuterol Sulfate (Ventolin) 1 mg PRN Q6HRS PRN IH FOR ASTHMA 10/08/20 22:30 10/08/20 22:41 DC Amoxicillin/ Clavulanate Potassium (Augmentin 875/ 125mg) 1 tab BID PO 10/09/20 09:00 10/09/20 12:52 DC Aspirin (Mikal Aspirin) 325 mg DAILY PO 10/09/20 09:00 10/14/20 08:03 Buspirone HCl (Buspar) 5 mg BID PO 10/08/20 23:00 10/10/20 21:00 DC 10/10/20 20:27 Ferrous Sulfate (Feosol) 325 mg BIDWMEALS PO 10/09/20 08:00 10/14/20 08:03 Acetaminophen/ Hydrocodone Bitart (Lortab 5/325) 1 tab PRN Q4HRS PRN PO MODERATE TO SEVERE PAIN 10/08/20 22:30 10/11/20 21:10 Levothyroxine Sodium (Synthroid) 25 mcg WEEKLYAC PO 10/15/20 07:00 10/09/20 12:52 DC Melatonin (Melatonin) 3 mg HS PO 10/08/20 21:00 10/13/20 19:37 Montelukast Sodium (Singulair) 10 mg DAILY PO 10/09/20 09:00 10/14/20 08:03 Polyethylene Glycol (miraLAX) 17 gm PRN DAILY PRN PO CONSTIPATION 10/08/20 22:30 10/11/20 00:04 Prednisone (Prednisone) 20 mg DAILY PO 10/09/20 09:00 10/09/20 14:24 DC 10/09/20 08:13 Risperidone (RisperDAL) 0.5 mg QHS PO 10/08/20 23:00 10/13/20 19:36 Trazodone HCl (Desyrel) 25 mg HS PO 10/08/20 23:00 10/13/20 19:37 Zolpidem Tartrate (Ambien) 5 mg HS PO 10/08/20 23:00 10/13/20 19:36 Non-Formulary Medication (Chlorpheniramine/ Pe/Codeine (Capcof Liquid)) 5 ml PRN Q12HR PRN PO COUGH 10/08/20 22:30 UNV Non-Formulary Medication (Doxycycline Hyclate ) 100 mg BID PO 10/09/20 09:00 10/09/20 12:52 DC Fluticasone Propionate (Flonase) 1 spray DAILY NS 10/09/20 09:00 10/14/20 08:02 Multivitamins/ Calcium (Thera-M Plus) 1 tab DAILY PO 10/09/20 09:00 10/14/20 08:03 Acetaminophen (Tylenol) 650 mg PRN Q6HRS PRN PO MILD PAIN / TEMP > 100.3'F 10/08/20 23:15 10/13/20 15:37 Multi-Ingredient Ointment (Analgesic [place]) 1 gunner PRN QID PRN TP MUSCLE PAIN 10/08/20 23:15 Al Hydroxide/Mg Hydroxide (Mylanta Plus Xs) 15 ml PRN AFTMEALHC PRN PO DYSPEPSIA 10/08/20 23:15 10/09/20 00:04 DC Magnesium Hydroxide (Milk Of Magnesia) 2,400 mg PRN QHS PRN PO CONSTIPATION 10/08/20 23:15 10/09/20 00:04 DC Albuterol Sulfate (Ventolin) 2.5 mg PRN Q6HRS PRN NEB SHORTNESS OF BREATH 10/09/20 01:30 Cancel Albuterol Sulfate (Ventolin Hfa Inhaler) 1 puff PRN Q6HRS PRN INH SHORTNESS OF BREATH 10/09/20 13:45 10/14/20 08:02 Olanzapine (ZyPREXA ZYDIS) 2.5 mg PRN Q2HR PRN PO PSYCHOSIS 10/09/20 19:45 [place] Carbonate 300 mg HS PO 10/09/20 21:00 10/13/20 19:37 Calcium Carbonate/ Glycine (Tums) 500 mg PRN AFTMEALHC PRN PO INDIGESTION 10/10/20 17:00 UNV Mirtazapine (Remeron) 7.5 mg QHS PO 10/11/20 21:00 10/13/20 19:36 Trazodone HCl (Desyrel) 25 mg PRN QHS PRN PO INSOMNIA, MAY REPEAT X2 10/11/20 20:00 [place] Carbonate 150 mg DAILY PO 10/13/20 09:00 10/14/20 08:03 Docusate Sodium (Colace) 100 mg HS PO 10/13/20 20:15 10/13/20 20:26 Current Medications Medications (Trade) Dose Ordered Sig/Jessica Route PRN Reason Start Time Stop Time Status Last Admin Dose Admin [place] Carbonate 150 mg DAILY PO 10/13/20 09:00 10/14/20 08:03 Docusate Sodium (Colace) 100 mg HS PO 10/13/20 20:15 10/13/20 20:26 I have reviewed the current psychotropics carefully including drug interactions. Risk benefit ratio favors no change other than as noted in my dictated progress note. Diagnosis: Problems: (1) Impulse control disorder, unspecified (2) Anxiety disorder, unspecified (3) Bipolar disorder, current episode mixed, severe, with psychotic features VARUN CA MD Oct 14, 2020 08:45
--- NOTE | 2020-10-14 14:15 | NUR ---
Nursing note: Patient in hallway for morning medication & assessment, meds taken whole. She continues to be restless & demanding today. She request information but interrupts this nurse when trying to answer. Patient often requests for misc items and food. She is currently laying down in bed resting. Will continue to monitor.
[2020-10-14 15:52] VITALS: BP 126/70
[2020-10-14] MEDS: MELATONIN 3 MG TABLET PO SCH (21:49)
[2020-10-14] MEDS: risperiDONE 0.5 MG TABLET. PO SCH (21:50)
[2020-10-14] MEDS: traZODone 50 MG TABLET. PO SCH (21:50)
[2020-10-14] MEDS: DOCUSATE SODIUM 100 MG CAPSULE PO SCH (21:50)
[2020-10-14] MEDS: MIRTAZAPINE 7.5 MG TABLET. PO SCH (21:50)
[2020-10-14] MEDS: ZOLPIDEM 5 MG TABLET. PO SCH (21:52)
--- NOTE | 2020-10-14 22:15 | PDOC ---
Exam Note: Evangelist Note: Please also refer to the separate dictated note~for this date of service dictated separately.~Patient seen individually. Discussed the patient with Nursing staff reviewed the chart.~Reviewed interim history and current functioning. Reviewed vital signs,~Labs/ Radiology~and current medications noted below. Continue current treatment with the changes noted in the dictated addendum note Assessment: Vital Signs/I&O: Vital Signs Date Time Temp Pulse Resp B/P (MAP) Pulse Ox O2 Delivery O2 Flow Rate FiO2 10/14/20 15:52 97.1 78 20 126/70 (88) 96 10/08/20 22:16 Room Air I & O 10/13/20 10/13/20 10/14/20 15:00 23:00 07:00 Intake Total 960 ml 1080 ml Balance 960 ml 1080 ml Current Medications: Meds: Current Medications Medications (Trade) Dose Ordered Sig/Jessica Route PRN Reason Start Time Stop Time Status Last Admin Dose Admin Albuterol Sulfate (Ventolin) 1 mg PRN Q6HRS PRN IH FOR ASTHMA 10/08/20 22:30 10/08/20 22:41 DC Amoxicillin/ Clavulanate Potassium (Augmentin 875/ 125mg) 1 tab BID PO 10/09/20 09:00 10/09/20 12:52 DC Aspirin (Mikal Aspirin) 325 mg DAILY PO 10/09/20 09:00 10/14/20 08:03 Buspirone HCl (Buspar) 5 mg BID PO 10/08/20 23:00 10/10/20 21:00 DC 10/10/20 20:27 Ferrous Sulfate (Feosol) 325 mg BIDWMEALS PO 10/09/20 08:00 10/14/20 17:03 Acetaminophen/ Hydrocodone Bitart (Lortab 5/325) 1 tab PRN Q4HRS PRN PO MODERATE TO SEVERE PAIN 10/08/20 22:30 10/11/20 21:10 Levothyroxine Sodium (Synthroid) 25 mcg WEEKLYAC PO 10/15/20 07:00 10/09/20 12:52 DC Melatonin (Melatonin) 3 mg HS PO 10/08/20 21:00 10/14/20 21:49 Montelukast Sodium (Singulair) 10 mg DAILY PO 10/09/20 09:00 10/14/20 08:03 Polyethylene Glycol (miraLAX) 17 gm PRN DAILY PRN PO CONSTIPATION 10/08/20 22:30 10/11/20 00:04 Prednisone (Prednisone) 20 mg DAILY PO 10/09/20 09:00 10/09/20 14:24 DC 10/09/20 08:13 Risperidone (RisperDAL) 0.5 mg QHS PO 10/08/20 23:00 10/14/20 21:50 Trazodone HCl (Desyrel) 25 mg HS PO 10/08/20 23:00 10/14/20 21:50 Zolpidem Tartrate (Ambien) 5 mg HS PO 10/08/20 23:00 10/14/20 21:52 Non-Formulary Medication (Chlorpheniramine/ Pe/Codeine (Capcof Liquid)) 5 ml PRN Q12HR PRN PO COUGH 10/08/20 22:30 UNV Non-Formulary Medication (Doxycycline Hyclate ) 100 mg BID PO 10/09/20 09:00 10/09/20 12:52 DC Fluticasone Propionate (Flonase) 1 spray DAILY NS 10/09/20 09:00 10/14/20 08:02 Multivitamins/ Calcium (Thera-M Plus) 1 tab DAILY PO 10/09/20 09:00 10/14/20 08:03 Acetaminophen (Tylenol) 650 mg PRN Q6HRS PRN PO MILD PAIN / TEMP > 100.3'F 10/08/20 23:15 10/13/20 15:37 Multi-Ingredient Ointment (Analgesic [place]) 1 gunner PRN QID PRN TP MUSCLE PAIN 10/08/20 23:15 Al Hydroxide/Mg Hydroxide (Mylanta Plus Xs) 15 ml PRN AFTMEALHC PRN PO DYSPEPSIA 10/08/20 23:15 10/09/20 00:04 DC Magnesium Hydroxide (Milk Of Magnesia) 2,400 mg PRN QHS PRN PO CONSTIPATION 10/08/20 23:15 10/09/20 00:04 DC Albuterol Sulfate (Ventolin) 2.5 mg PRN Q6HRS PRN NEB SHORTNESS OF BREATH 10/09/20 01:30 Cancel Albuterol Sulfate (Ventolin Hfa Inhaler) 1 puff PRN Q6HRS PRN INH SHORTNESS OF BREATH 10/09/20 13:45 10/14/20 08:02 Olanzapine (ZyPREXA ZYDIS) 2.5 mg PRN Q2HR PRN PO PSYCHOSIS 10/09/20 19:45 [place] Carbonate 300 mg HS PO 10/09/20 21:00 10/14/20 21:50 Calcium Carbonate/ Glycine (Tums) 500 mg PRN AFTMEALHC PRN PO INDIGESTION 10/10/20 17:00 UNV Mirtazapine (Remeron) 7.5 mg QHS PO 10/11/20 21:00 10/14/20 21:50 Trazodone HCl (Desyrel) 25 mg PRN QHS PRN PO INSOMNIA, MAY REPEAT X2 10/11/20 20:00 [place] Carbonate 150 mg DAILY PO 10/13/20 09:00 10/14/20 08:03 Docusate Sodium (Colace) 100 mg HS PO 10/13/20 20:15 10/14/20 21:50 I have reviewed the current psychotropics carefully including drug interactions. Risk benefit ratio favors no change other than as noted in my dictated progress note. Diagnosis: Problems: (1) Impulse control disorder, unspecified (2) Anxiety disorder, unspecified (3) Bipolar disorder, current episode mixed, severe, with psychotic features VARUN CA MD Oct 14, 2020 22:15
--- NOTE | 2020-10-15 04:25 | NUR ---
Nursing Note The patient was located in her room for her assessment and medication pass. The patient took her medication whole. The patient was laying in bed for interactions with this nurse. The patient was alert to name, date and location. The patient was pleasant during interactions with this nurse. The patient is currently sleeping in her room.
[2020-10-15 06:04] VITALS: BP 118/73
[2020-10-15] MEDS ORDERED: LEVOTHYROXINE 25 MCG TABLET. PO SCH (07:00)
[2020-10-15 07:42] LABS: BASO # 0.1 x10^3/uL (0.0-0.2); BASO % 1 % (0-3); EOS # 0.4 x10^3/uL (0.0-0.7); EOS % 6 % (0-3); HEMATOCRIT 27.6 % (36.0-47.0); LYMPH # 1.2 x10^3/uL (1.0-4.8); LYMPH % 18 % (24-48); MEAN CORPUSCULAR HEMOGLOBIN 32 pg (25-35); MEAN CORPUSCULAR HGB CONC 33 g/dL (31-37); MEAN CORPUSCULAR VOLUME 97 fL (79-100); MONO # 0.5 x10^3/uL (0.0-1.1); MONO % 7 % (0-9); NEUT # 4.6 x10^3uL (1.8-7.7); NEUT % 68 % (31-73); PLATELET COUNT 280 x10^3/uL (140-400); RED BLOOD COUNT 2.84 x10^6/uL (3.50-5.40); RED CELL DISTRIBUTION WIDTH 16.7 % (11.5-14.5); WHITE BLOOD COUNT 6.7 x10^3/uL (4.0-11.0)
[2020-10-15 07:52] LABS: ALBUMIN 2.9 g/dL (3.4-5.0); ALBUMIN/GLOBULIN RATIO 0.9 (1.0-1.7); CALCIUM 9.4 mg/dL (8.5-10.1); CREATININE 1.1 mg/dL (0.6-1.0); GFR 49.8; POTASSIUM 4.2 mmol/L (3.5-5.1); TOTAL BILIRUBIN 0.2 mg/dL (0.2-1.0)
[2020-10-15] MEDS: LITHIUM CARBONATE 300 MG TABLET PO SCH ×2 (08:06→20:48)
[2020-10-15] MEDS: FERROUS SULFATE 325 MG TABLET. PO SCH ×2 (08:06→17:28)
[2020-10-15] MEDS: ASPIRIN 325 MG TABLET PO SCH (08:06)
[2020-10-15] MEDS: MONTELUKAST 10 MG TABLET. PO SCH (08:06)
[2020-10-15] MEDS: FLUTICASONE 50MCG/NASAL SPRAY 16GM BOTTLE. NS SCH (08:07)
[2020-10-15] MEDS: MULTIVITAMIN with MINERAL TABLET. PO SCH (08:07)
--- NOTE | 2020-10-15 08:32 | PDOC ---
Exam Note: Evangelist Note: This note is a late entry for 10/14/2020 covers elements not covered in my initial note. Subjective: The patient was seen individually in the evening of 10/14/2020 with Asuncion TEJADA, discussed and reviewed the chart. The patient slept 4 hours previous night. She remains somewhat hypomanic with pressure of speech, was less than before. She is more compliant with medications. She appears happy per nursing report. Repeat lithium level is awaited. I met with her in her room. Review of Systems: She complains of some lower leg pain. No CV, , pulmonary, eye, ENT system symptoms on review. Mental Status Exam: The patient is reasonably oriented. Speech coherent, rapid at times. Abstraction fair. Computation impaired. Language function intact. Attention span short. Mood and affect somewhat anxious, labile, grandiose, but less so than before. Laboratory Data: Reviewed. Impression: Bipolar disorder, manic with psychotic features. Anxiety disorder unspecified. Early signs of tardive dyskinesia. Impulse control disorder unspecified. Plan: Continue current psychotropics. We have increased the lithium. We will follow labs level. Adjust to reach therapeutic level. Continue Risperdal unchanged. Assessment: Vital Signs/I&O: Vital Signs Date Time Temp Pulse Resp B/P (MAP) Pulse Ox O2 Delivery O2 Flow Rate FiO2 10/15/20 06:04 97.5 72 20 118/73 (88) 96 I & O 10/14/20 10/14/20 10/15/20 15:00 23:00 07:00 Intake Total 720 ml 720 ml Balance 720 ml 720 ml Labs: Laboratory Tests Test 10/15/20 07:30 White Blood Count 6.7 x10^3/uL (4.0-11.0) Red Blood Count 2.84 x10^6/uL (3.50-5.40) L Hemoglobin 9.0 g/dL (12.0-15.5) L Hematocrit 27.6 % (36.0-47.0) L Mean Corpuscular Volume 97 fL (79-100) Mean Corpuscular Hemoglobin 32 pg (25-35) Mean Corpuscular Hemoglobin Concent 33 g/dL (31-37) Red Cell Distribution Width 16.7 % (11.5-14.5) H Platelet Count 280 x10^3/uL (140-400) Neutrophils (%) (Auto) 68 % (31-73) Lymphocytes (%) (Auto) 18 % (24-48) L Monocytes (%) (Auto) 7 % (0-9) Eosinophils (%) (Auto) 6 % (0-3) H Basophils (%) (Auto) 1 % (0-3) Neutrophils # (Auto) 4.6 x10^3uL (1.8-7.7) Lymphocytes # (Auto) 1.2 x10^3/uL (1.0-4.8) Monocytes # (Auto) 0.5 x10^3/uL (0.0-1.1) Eosinophils # (Auto) 0.4 x10^3/uL (0.0-0.7) Basophils # (Auto) 0.1 x10^3/uL (0.0-0.2) Sodium Level 141 mmol/L (136-145) Potassium Level 4.2 mmol/L (3.5-5.1) Chloride Level 110 mmol/L (98-107) H Carbon Dioxide Level 24 mmol/L (21-32) Anion Gap 7 (6-14) Blood Urea Nitrogen 9 mg/dL (7-20) Creatinine 1.1 mg/dL (0.6-1.0) H Estimated GFR (Cockcroft-Gault) 49.8 BUN/Creatinine Ratio 8 (6-20) Glucose Level 104 mg/dL (70-99) H Calcium Level 9.4 mg/dL (8.5-10.1) Total Bilirubin 0.2 mg/dL (0.2-1.0) Aspartate Amino Transferase (AST) 26 U/L (15-37) Alanine Aminotransferase (ALT) 42 U/L (14-59) Alkaline Phosphatase 75 U/L (46-116) Total Protein 6.0 g/dL (6.4-8.2) L Albumin 2.9 g/dL (3.4-5.0) L Albumin/Globulin Ratio 0.9 (1.0-1.7) L Current Medications: Meds: Laboratory Tests Test 10/15/20 07:30 White Blood Count 6.7 x10^3/uL Red Blood Count 2.84 x10^6/uL Hemoglobin 9.0 g/dL Hematocrit 27.6 % Mean Corpuscular Volume 97 fL Mean Corpuscular Hemoglobin 32 pg Mean Corpuscular Hemoglobin Concent 33 g/dL Red Cell Distribution Width 16.7 % Platelet Count 280 x10^3/uL Neutrophils (%) (Auto) 68 % Lymphocytes (%) (Auto) 18 % Monocytes (%) (Auto) 7 % Eosinophils (%) (Auto) 6 % Basophils (%) (Auto) 1 % Neutrophils # (Auto) 4.6 x10^3uL Lymphocytes # (Auto) 1.2 x10^3/uL Monocytes # (Auto) 0.5 x10^3/uL Eosinophils # (Auto) 0.4 x10^3/uL Basophils # (Auto) 0.1 x10^3/uL Sodium Level 141 mmol/L Potassium Level 4.2 mmol/L Chloride Level 110 mmol/L Carbon Dioxide Level 24 mmol/L Anion Gap 7 Blood Urea Nitrogen 9 mg/dL Creatinine 1.1 mg/dL Estimated GFR (Cockcroft-Gault) 49.8 BUN/Creatinine Ratio 8 Glucose Level 104 mg/dL Calcium Level 9.4 mg/dL Total Bilirubin 0.2 mg/dL Aspartate Amino Transf (AST/SGOT) 26 U/L Alanine Aminotransferase (ALT/SGPT) 42 U/L Alkaline Phosphatase 75 U/L Total Protein 6.0 g/dL Albumin 2.9 g/dL Albumin/Globulin Ratio 0.9 Current Medications Medications (Trade) Dose Ordered Sig/Jessica Route PRN Reason Start Time Stop Time Status Last Admin Dose Admin Albuterol Sulfate (Ventolin) 1 mg PRN Q6HRS PRN IH FOR ASTHMA 10/08/20 22:30 10/08/20 22:41 DC Amoxicillin/ Clavulanate Potassium (Augmentin 875/ 125mg) 1 tab BID PO 10/09/20 09:00 10/09/20 12:52 DC Aspirin (Mikal Aspirin) 325 mg DAILY PO 10/09/20 09:00 10/15/20 08:06 Buspirone HCl (Buspar) 5 mg BID PO 10/08/20 23:00 10/10/20 21:00 DC 10/10/20 20:27 Ferrous Sulfate (Feosol) 325 mg BIDWMEALS PO 10/09/20 08:00 10/15/20 08:06 Acetaminophen/ Hydrocodone Bitart (Lortab 5/325) 1 tab PRN Q4HRS PRN PO MODERATE TO SEVERE PAIN 10/08/20 22:30 10/11/20 21:10 Levothyroxine Sodium (Synthroid) 25 mcg WEEKLYAC PO 10/15/20 07:00 10/09/20 12:52 DC Melatonin (Melatonin) 3 mg HS PO 10/08/20 21:00 10/14/20 21:49 Montelukast Sodium (Singulair) 10 mg DAILY PO 10/09/20 09:00 10/15/20 08:06 Polyethylene Glycol (miraLAX) 17 gm PRN DAILY PRN PO CONSTIPATION 10/08/20 22:30 10/11/20 00:04 Prednisone (Prednisone) 20 mg DAILY PO 10/09/20 09:00 10/09/20 14:24 DC 10/09/20 08:13 Risperidone (RisperDAL) 0.5 mg QHS PO 10/08/20 23:00 10/14/20 21:50 Trazodone HCl (Desyrel) 25 mg HS PO 10/08/20 23:00 10/14/20 21:50 Zolpidem Tartrate (Ambien) 5 mg HS PO 10/08/20 23:00 10/14/20 21:52 Non-Formulary Medication (Chlorpheniramine/ Pe/Codeine (Capcof Liquid)) 5 ml PRN Q12HR PRN PO COUGH 10/08/20 22:30 UNV Non-Formulary Medication (Doxycycline Hyclate ) 100 mg BID PO 10/09/20 09:00 10/09/20 12:52 DC Fluticasone Propionate (Flonase) 1 spray DAILY NS 10/09/20 09:00 10/15/20 08:07 Multivitamins/ Calcium (Thera-M Plus) 1 tab DAILY PO 10/09/20 09:00 10/15/20 08:07 Acetaminophen (Tylenol) 650 mg PRN Q6HRS PRN PO MILD PAIN / TEMP > 100.3'F 10/08/20 23:15 10/13/20 15:37 Multi-Ingredient Ointment (Analgesic [place]) 1 gunner PRN QID PRN TP MUSCLE PAIN 10/08/20 23:15 Al Hydroxide/Mg Hydroxide (Mylanta Plus Xs) 15 ml PRN AFTMEALHC PRN PO DYSPEPSIA 10/08/20 23:15 10/09/20 00:04 DC Magnesium Hydroxide (Milk Of Magnesia) 2,400 mg PRN QHS PRN PO CONSTIPATION 10/08/20 23:15 10/09/20 00:04 DC Albuterol Sulfate (Ventolin) 2.5 mg PRN Q6HRS PRN NEB SHORTNESS OF BREATH 10/09/20 01:30 Cancel Albuterol Sulfate (Ventolin Hfa Inhaler) 1 puff PRN Q6HRS PRN INH SHORTNESS OF BREATH 10/09/20 13:45 10/14/20 08:02 Olanzapine (ZyPREXA ZYDIS) 2.5 mg PRN Q2HR PRN PO PSYCHOSIS 10/09/20 19:45 [place] Carbonate 300 mg HS PO 10/09/20 21:00 10/14/20 21:50 Calcium Carbonate/ Glycine (Tums) 500 mg PRN AFTMEALHC PRN PO INDIGESTION 10/10/20 17:00 UNV Mirtazapine (Remeron) 7.5 mg QHS PO 10/11/20 21:00 10/14/20 21:50 Trazodone HCl (Desyrel) 25 mg PRN QHS PRN PO INSOMNIA, MAY REPEAT X2 10/11/20 20:00 [place] Carbonate 150 mg DAILY PO 10/13/20 09:00 10/15/20 08:06 Docusate Sodium (Colace) 100 mg HS PO 10/13/20 20:15 10/14/20 21:50 I have reviewed the current psychotropics carefully including drug interactions. Risk benefit ratio favors no change other than as noted in my dictated progress note. Diagnosis: Problems: (1) Impulse control disorder, unspecified (2) Anxiety disorder, unspecified (3) Bipolar disorder, current episode mixed, severe, with psychotic features VARUN CA MD Oct 15, 2020 08:32
--- NOTE | 2020-10-15 12:41 | NUR ---
nsg note; Valeri has been restless, attention seeking and hyperverbal this morning, interrupting others to bring the attention back to her. she is worried about her living situation, talking repeatedly about her son and granddaughter-SW notified to speak with her. She is cooperative and med compliant.
[2020-10-15] MEDS: ACETAMINOPHEN 325 MG TABLET PO PRN (15:01)
[2020-10-15 16:10] VITALS: BP 121/78
[2020-10-15] MEDS: HYDROcodone/APAP 5/325MG 1 TAB TABLET PO PRN (17:29)
[2020-10-15] MEDS: MIRTAZAPINE 7.5 MG TABLET. PO SCH (20:47)
[2020-10-15] MEDS: MELATONIN 3 MG TABLET PO SCH (20:47)
[2020-10-15] MEDS: DOCUSATE SODIUM 100 MG CAPSULE PO SCH (20:48)
[2020-10-15] MEDS: traZODone 50 MG TABLET. PO SCH (20:49)
[2020-10-15] MEDS: risperiDONE 0.5 MG TABLET. PO SCH (20:49)
[2020-10-15] MEDS: ZOLPIDEM 5 MG TABLET. PO SCH (20:51)
--- NOTE | 2020-10-16 02:38 | NUR ---
Last evening pt was hyperverbal and wanting a emergency pass so she can go and pay her rent or she and granddaughter will be evicted. She took meds whole and has been cooperative with staff.
[2020-10-16] MEDS: HYDROcodone/APAP 5/325MG 1 TAB TABLET PO PRN ×2 (05:05→17:23)
--- NOTE | 2020-10-16 05:06 | NUR ---
PRN pain med given for foot pain.
[2020-10-16 07:00] VITALS: BP 130/85
[2020-10-16] MEDS: FERROUS SULFATE 325 MG TABLET. PO SCH ×2 (08:23→17:20)
[2020-10-16] MEDS: ASPIRIN 325 MG TABLET PO SCH (08:23)
[2020-10-16] MEDS: FLUTICASONE 50MCG/NASAL SPRAY 16GM BOTTLE. NS SCH (08:23)
[2020-10-16] MEDS: MONTELUKAST 10 MG TABLET. PO SCH (08:23)
[2020-10-16] MEDS: LITHIUM CARBONATE 300 MG TABLET PO SCH ×2 (08:24→20:04)
[2020-10-16] MEDS: MULTIVITAMIN with MINERAL TABLET. PO SCH (08:24)
[2020-10-16] MEDS: POLYETHYLENE GLYCOL 3350 17 GM PACKET. PO PRN (08:29)
[2020-10-16] MEDS: ACETAMINOPHEN 325 MG TABLET PO PRN (08:29)
--- NOTE | 2020-10-16 11:20 | NUR ---
WEEKLY ACTIVITY THERAPY NOTE Date of Admission:10/08/20 Date of AT Assessment: 10/10 Precipitating behaviors that initiated intake and admission:Confusion, anxiety, insomnia Goal aimed:support socialization and engagement Initial Goal:Pt will participate in at least five individual or group Activity Therapy sessions per week Weekly progress towards goal: did not achieve, 2/5 Group participation level: 1 min, 1 mod Weekly highlights: arts and crafts activities Tuesday afternoon, patio and music Tuesday morning Behaviors observed: hyperverbal, talking over peers and staff, pleasant Plan: no change to goal Beneficial adaptations: music, socialization
[2020-10-16] MEDS ORDERED: LITHIUM CARBONATE 300 MG TABLET PO ONE (12:00)
--- NOTE | 2020-10-16 12:13 | NUR ---
Treatment team update: Pt is eating 75% of meals and sleeping on average 6 hours per night. Pt continues to be hyperverbal and tangential in thoughts. Pt continually is asking staff for things and takes over conversations that do not allow for her peers to participate (e.g. poor boundaries). Pt wants to continue living with her niece and is concerned about paying her bills because no one else can pay them. Pt will have her morning [place] dose increased to 300 mg with labs and level in 3 days; she will has have her Risperdal increased to 1mg daily. Pt insurance review is scheduled for tomorrow (Tuesday 10/17); SW to follow up with pt son on discharge plans, which include potentially finding a placement for pt once pt is stable. ELOS for the end to the beginning of next week if insurance allows.
--- NOTE | 2020-10-16 12:31 | TX PLAN ---
Interdisciplinary Tx Plan Admission Information Oct 08, 2020 at 17:00 Legal Status (on Admission): Voluntary DPOA/Guardian Name: Cruz Mclaughlin Contact Verified Code Status: Full Code Allergies: Coded Allergies: aluminum hydroxide (Verified Allergy, Unknown, 10/08/20) calcium carbonate (Verified Allergy, Unknown, 10/08/20) chlorpromazine (Verified Allergy, Unknown, 10/08/20) cyproheptadine (Verified Allergy, Unknown, 10/08/20) diphenhydramine (Verified Allergy, Unknown, 10/08/20) haloperidol (Verified Allergy, Unknown, 10/08/20) magnesium (Verified Allergy, Unknown, 10/08/20) magnesium hydroxide (Verified Allergy, Unknown, 10/08/20) simethicone (Verified Allergy, Unknown, 10/08/20) terbutaline (Verified Allergy, Unknown, 10/08/20) Diagnoses Primary Diagnosis: Bipolar D/O with psychotic features Reasons for Admission: Anxiety/Panic, Hallucinations, Confusion/Disoriented, Other Problem in Patient's Words: Accidental Overdose; found her pill box and her meds were all mixed together (no box had the same meds in days assigned). Additional Admission Comments: According to the intake, pt is having A/V hallucinations, confusion, anxiety, insomnia, recent accidental overdose of [place] 2.5 ago; was taken off the [place] and is now hypomanic, distressed, fearful and distraught. Problems Active Problems: hyperverbal tangential anxious Inactive Problems: medication compliant Pt Strengths/Limitations Ability for [place]: Fair Cognitive Functioning/Ability: Fair Communication Skills/Ability: Fair Financial Resources: Poor Insight/Judgement: Poor Intellectual Ability: Fair Physical Health: Fair Social Skills: Poor Stability in Family: Good Stability in School/Work: Poor Verbal Skills: Fair Discharge Criteria Discharge Criteria: No need for close observ., Adequate arrangements @DC, Improved behavior, Improved mood/thought Preliminary Discharge Plan Preliminary DC Plan: Placement Needed, Current Living Arrange. Special Precautions Fall Risk: Low Initial D/C Plan Pt son may look for a chcf place for pt to live Identified Discharge Needs: Referral to higher level of care possible Currently Utilized Resources Currently Utilized Resources/P: Primary care physician Identified Problems/Hx/Goals Objectives/Short-Term Goals Short Term Goals: Dec. Hallucination/Delus, Dec. Outbursts, Medication Stabili zation, Monitor Med Effects Short Term Goals in Patient's: N/A Interventions/Frequency Staff Interventions/Frequency&: Psychiatrist to assess pt at least 3x per week for medication management. Social work to assess pt at least 2x per week to identify barriers to care and finalize discharge plans. Nursing to assess medication effects, behavior modification and complete 15 minute checks daily. Encourage participation in group activities (if applicable) or 1:1 engagement based off activity dept goals. 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 Education: Pt did graduate the 12th grade Community Follow-up Primary Care Physician Community Provider/Family Inpu: Moving to the niece's was not a good idea. It took a toll on pt and her mental health has declined. Treatment Plan Explained Patient/Envelope Machine Adjuster had this treatment plan explained to him/her as indicated by the signature below and has been given the opportunity to ask questions and make suggestions: Date: Patient/Envelope Machine Adjuster Signature: Patient/Envelope Machine Adjuster Decline: No (Pt son is active in pt care.) Status Update Update Note: This is pt second treatment team; the first team was held on 10/09/2020. Pt is eating 75% of meals and sleeping on average 6 hours per night. Pt continues to be hyperverbal and tangential in thoughts. Pt continually is asking staff for things and takes over conversations that do not allow for her peers to participate (e.g. poor boundaries). Pt wants to continue living with her niece and is concerned about paying her bills because no one else can pay them. Pt will have her morning [place] dose increased to 300 mg with labs and level in 3 days; she will has have her Risperdal increased to 1mg daily. Pt i nsurance review is scheduled for tomorrow (Tuesday 10/17); SW to follow up with pt son on discharge plans, which include potentially finding a placement for pt once pt is stable. ELOS for the end to the beginning of next week if insurance allows. JOHN TRAN Oct 16, 2020 12:31
--- NOTE | 2020-10-16 12:32 | NUR ---
SW returned call to pt son, Cruz, about an update on pt. Cruz reports that pt has always been on the go so the anjel that staff described, they are used to; however, pt being interruptive and having poor boundaries is not normal. SW explained that with the medications continuing to be adjusted, having pt be so manic is not something that would be beneficial for pt at the time to discharge. Pt is adamant about going back to live with her niece at the time of discharge; although it would be more than appropriate for pt to discharge to a facility with other seniors and activity. Cruz reports talking about this with his mother but she was also adamant with him that it was not an option. SW mentioned having a nurse check on pt medications a couple times a week and then also having services through [facility]. It appears that pt had services; but her social director left and one never got reassigned to her again. SW will double check that as an option and call Cruz next week with an update.
--- NOTE | 2020-10-16 14:47 | NUR ---
Nursing note: Pt was walking in east hallway in front of the nurses station without her walker when she attempted to reach for the railing and tripped on her shoes, which caused her to miss the wall and land on the ground. Pt c/o that she hit her right knee on the floor and that it hurt "just a little bit" and is slightly red from the hit. Pt able to bend her knee and walk on it immediately after being assisted off the ground. Vital signs are stable. Dr. Suggs informed. No new orders at this time. Pt's son/DPOA, Cruz, notified. He was appreciative of the call and had no further questions/concerns. Call was transferred to pt phone so he could speak with Valeri. Will continue to monitor.
--- NOTE | 2020-10-16 14:47 | NUR ---
Nsg Note; Valeri has been very verbal about wanting to go home, paying her rent, not wanting to move to a new place, wanting to speak with her son and requesting her director social service. The director social service Angel is aware Valeri wants to speak with her but has been trying to contact Valeri's son before speaking with her
[2020-10-16 15:45] VITALS: BP 127/72
[2020-10-16] MEDS: traZODone 50 MG TABLET. PO SCH (20:04)
[2020-10-16] MEDS: MELATONIN 3 MG TABLET PO SCH (20:04)
[2020-10-16] MEDS: ZOLPIDEM 5 MG TABLET. PO SCH (20:04)
[2020-10-16] MEDS: DOCUSATE SODIUM 100 MG CAPSULE PO SCH (20:05)
[2020-10-16] MEDS: risperiDONE 1 MG TABLET. PO SCH (20:05)
[2020-10-16] MEDS: MIRTAZAPINE 7.5 MG TABLET. PO SCH (20:05)
--- NOTE | 2020-10-16 21:42 | PDOC ---
Exam Note: Evangelist Note: Please also refer to the separate dictated note~for this date of service dictated separately.~Patient seen individually. Discussed the patient with Nursing staff reviewed the chart.~Reviewed interim history and current functioning. Reviewed vital signs,~Labs/ Radiology~and current medications noted below. Continue current treatment with the changes noted in the dictated addendum note Assessment: Vital Signs/I&O: Vital Signs Date Time Temp Pulse Resp B/P (MAP) Pulse Ox O2 Delivery O2 Flow Rate FiO2 10/16/20 15:45 98.3 92 20 127/72 (90) 98 10/16/20 05:05 Room Air I & O 10/15/20 10/15/20 10/16/20 15:00 23:00 07:00 Intake Total 720 ml 840 ml Balance 720 ml 840 ml Current Medications: Meds: Current Medications Medications (Trade) Dose Ordered Sig/Jessica Route PRN Reason Start Time Stop Time Status Last Admin Dose Admin Albuterol Sulfate (Ventolin) 1 mg PRN Q6HRS PRN IH FOR ASTHMA 10/08/20 22:30 10/08/20 22:41 DC Amoxicillin/ Clavulanate Potassium (Augmentin 875/ 125mg) 1 tab BID PO 10/09/20 09:00 10/09/20 12:52 DC Aspirin (Mikal Aspirin) 325 mg DAILY PO 10/09/20 09:00 10/16/20 08:23 Buspirone HCl (Buspar) 5 mg BID PO 10/08/20 23:00 10/10/20 21:00 DC 10/10/20 20:27 Ferrous Sulfate (Feosol) 325 mg BIDWMEALS PO 10/09/20 08:00 10/16/20 17:20 Acetaminophen/ Hydrocodone Bitart (Lortab 5/325) 1 tab PRN Q4HRS PRN PO MODERATE TO SEVERE PAIN 10/08/20 22:30 10/16/20 17:23 Levothyroxine Sodium (Synthroid) 25 mcg WEEKLYAC PO 10/15/20 07:00 10/09/20 12:52 DC Melatonin (Melatonin) 3 mg HS PO 10/08/20 21:00 10/16/20 20:04 Montelukast Sodium (Singulair) 10 mg DAILY PO 10/09/20 09:00 10/16/20 08:23 Polyethylene Glycol (miraLAX) 17 gm PRN DAILY PRN PO CONSTIPATION 10/08/20 22:30 10/16/20 08:29 Prednisone (Prednisone) 20 mg DAILY PO 10/09/20 09:00 10/09/20 14:24 DC 10/09/20 08:13 Risperidone (RisperDAL) 0.5 mg QHS PO 10/08/20 23:00 10/16/20 11:24 DC 10/15/20 20:49 Trazodone HCl (Desyrel) 25 mg HS PO 10/08/20 23:00 10/16/20 20:04 Zolpidem Tartrate (Ambien) 5 mg HS PO 10/08/20 23:00 10/16/20 20:04 Non-Formulary Medication (Chlorpheniramine/ Pe/Codeine (Capcof Liquid)) 5 ml PRN Q12HR PRN PO COUGH 10/08/20 22:30 UNV Non-Formulary Medication (Doxycycline Hyclate ) 100 mg BID PO 10/09/20 09:00 10/09/20 12:52 DC Fluticasone Propionate (Flonase) 1 spray DAILY NS 10/09/20 09:00 10/16/20 08:23 Multivitamins/ Calcium (Thera-M Plus) 1 tab DAILY PO 10/09/20 09:00 10/16/20 08:24 Acetaminophen (Tylenol) 650 mg PRN Q6HRS PRN PO MILD PAIN / TEMP > 100.3'F 10/08/20 23:15 10/16/20 08:29 Multi-Ingredient Ointment (Analgesic [place]) 1 gunner PRN QID PRN TP MUSCLE PAIN 10/08/20 23:15 Al Hydroxide/Mg Hydroxide (Mylanta Plus Xs) 15 ml PRN AFTMEALHC PRN PO DYSPEPSIA 10/08/20 23:15 10/09/20 00:04 DC Magnesium Hydroxide (Milk Of Magnesia) 2,400 mg PRN QHS PRN PO CONSTIPATION 10/08/20 23:15 10/09/20 00:04 DC Albuterol Sulfate (Ventolin) 2.5 mg PRN Q6HRS PRN NEB SHORTNESS OF BREATH 10/09/20 01:30 Cancel Albuterol Sulfate (Ventolin Hfa Inhaler) 1 puff PRN Q6HRS PRN INH SHORTNESS OF BREATH 10/09/20 13:45 10/14/20 08:02 Olanzapine (ZyPREXA ZYDIS) 2.5 mg PRN Q2HR PRN PO PSYCHOSIS 10/09/20 19:45 [place] Carbonate 300 mg HS PO 10/09/20 21:00 10/16/20 11:24 DC 10/15/20 20:48 Calcium Carbonate/ Glycine (Tums) 500 mg PRN AFTMEALHC PRN PO INDIGESTION 10/10/20 17:00 UNV Mirtazapine (Remeron) 7.5 mg QHS PO 10/11/20 21:00 10/16/20 20:05 Trazodone HCl (Desyrel) 25 mg PRN QHS PRN PO INSOMNIA, MAY REPEAT X2 10/11/20 20:00 [place] Carbonate 150 mg DAILY PO 10/13/20 09:00 10/16/20 11:24 DC 10/16/20 08:24 Docusate Sodium (Colace) 100 mg HS PO 10/13/20 20:15 10/16/20 20:05 [place] Carbonate 300 mg BID PO 10/16/20 21:00 10/16/20 20:04 Risperidone (RisperDAL) 1 mg QHS PO 10/16/20 21:00 10/16/20 20:05 [place] Carbonate 150 mg 1X ONCE PO 10/16/20 12:00 10/16/20 12:01 DC 10/16/20 12:16 Current Medications Medications (Trade) Dose Ordered Sig/Jessica Route PRN Reason Start Time Stop Time Status Last Admin Dose Admin [place] Carbonate 300 mg BID PO 10/16/20 21:00 10/16/20 20:04 Risperidone (RisperDAL) 1 mg QHS PO 10/16/20 21:00 10/16/20 20:05 [place] Carbonate 150 mg 1X ONCE PO 10/16/20 12:00 10/16/20 12:01 DC 10/16/20 12:16 I have reviewed the current psychotropics carefully including drug interactions. Risk benefit ratio favors no change other than as noted in my dictated progress note. Diagnosis: Problems: (1) Impulse control disorder, unspecified (2) Anxiety disorder, unspecified (3) Bipolar disorder, current episode mixed, severe, with psychotic features LANNY,MAN M MD Oct 16, 2020 21:42
--- NOTE | 2020-10-17 01:55 | NUR ---
Last evening pt was mainly in her room, she and roommate are getting along well. She took meds whole without difficulty. She remains hyperverbal but seems calmer tonight and has had no behaviors.
[2020-10-17 06:03] VITALS: BP 111/68
[2020-10-17] MEDS: FERROUS SULFATE 325 MG TABLET. PO SCH ×2 (08:00→17:09)
[2020-10-17] MEDS: MULTIVITAMIN with MINERAL TABLET. PO SCH (08:00)
[2020-10-17] MEDS: MONTELUKAST 10 MG TABLET. PO SCH (08:00)
[2020-10-17] MEDS: ASPIRIN 325 MG TABLET PO SCH (08:00)
[2020-10-17] MEDS: LITHIUM CARBONATE 300 MG TABLET PO SCH ×2 (08:00→20:29)
--- NOTE | 2020-10-17 08:00 | NUR ---
Nurse note Patient complaints of left leg pain, requesting for pain med. patient received prn Hydrocodone.[id number] Patient seems to be doing fine able to ambulate with assist from walker. No complaints of pain.
[2020-10-17] MEDS: FLUTICASONE 50MCG/NASAL SPRAY 16GM BOTTLE. NS SCH (08:01)
--- NOTE | 2020-10-17 09:45 | NUR ---
CORNELIO faxed over updates for pt insurance review; requesting the weekend to be covered due to increase in medication, lab draw and pt continued hyperverbal/anjel.
[2020-10-17 15:44] VITALS: BP 128/79
[2020-10-17] MEDS: MELATONIN 3 MG TABLET PO SCH (20:27)
[2020-10-17] MEDS: DOCUSATE SODIUM 100 MG CAPSULE PO SCH (20:27)
[2020-10-17] MEDS: ZOLPIDEM 5 MG TABLET. PO SCH (20:27)
[2020-10-17] MEDS: risperiDONE 1 MG TABLET. PO SCH (20:29)
[2020-10-17] MEDS: MIRTAZAPINE 7.5 MG TABLET. PO SCH (20:29)
[2020-10-17] MEDS: traZODone 50 MG TABLET. PO SCH (20:29)
--- NOTE | 2020-10-17 21:57 | PDOC ---
Exam Note: Evangelist Note: Please also refer to the separate dictated note~for this date of service dictated separately.~Patient seen individually. Discussed the patient with Nursing staff reviewed the chart.~Reviewed interim history and current functioning. Reviewed vital signs,~Labs/ Radiology~and current medications noted below. Continue current treatment with the changes noted in the dictated addendum note Assessment: Vital Signs/I&O: Vital Signs Date Time Temp Pulse Resp B/P (MAP) Pulse Ox O2 Delivery O2 Flow Rate FiO2 10/17/20 15:44 97.2 78 16 128/79 (95) 98 10/16/20 05:05 Room Air I & O 10/16/20 10/16/20 10/17/20 15:00 23:00 07:00 Intake Total 960 ml 720 ml Balance 960 ml 720 ml Current Medications: Meds: Current Medications Medications (Trade) Dose Ordered Sig/Jessica Route PRN Reason Start Time Stop Time Status Last Admin Dose Admin Albuterol Sulfate (Ventolin) 1 mg PRN Q6HRS PRN IH FOR ASTHMA 10/08/20 22:30 10/08/20 22:41 DC Amoxicillin/ Clavulanate Potassium (Augmentin 875/ 125mg) 1 tab BID PO 10/09/20 09:00 10/09/20 12:52 DC Aspirin (Mikal Aspirin) 325 mg DAILY PO 10/09/20 09:00 10/17/20 08:00 Buspirone HCl (Buspar) 5 mg BID PO 10/08/20 23:00 10/10/20 21:00 DC 10/10/20 20:27 Ferrous Sulfate (Feosol) 325 mg BIDWMEALS PO 10/09/20 08:00 10/17/20 17:09 Acetaminophen/ Hydrocodone Bitart (Lortab 5/325) 1 tab PRN Q4HRS PRN PO MODERATE TO SEVERE PAIN 10/08/20 22:30 10/16/20 17:23 Levothyroxine Sodium (Synthroid) 25 mcg WEEKLYAC PO 10/15/20 07:00 10/09/20 12:52 DC Melatonin (Melatonin) 3 mg HS PO 10/08/20 21:00 10/17/20 20:27 Montelukast Sodium (Singulair) 10 mg DAILY PO 10/09/20 09:00 10/17/20 08:00 Polyethylene Glycol (miraLAX) 17 gm PRN DAILY PRN PO CONSTIPATION 10/08/20 22:30 10/16/20 08:29 Prednisone (Prednisone) 20 mg DAILY PO 10/09/20 09:00 10/09/20 14:24 DC 10/09/20 08:13 Risperidone (RisperDAL) 0.5 mg QHS PO 10/08/20 23:00 10/16/20 11:24 DC 10/15/20 20:49 Trazodone HCl (Desyrel) 25 mg HS PO 10/08/20 23:00 10/17/20 20:29 Zolpidem Tartrate (Ambien) 5 mg HS PO 10/08/20 23:00 10/17/20 20:27 Non-Formulary Medication (Chlorpheniramine/ Pe/Codeine (Capcof Liquid)) 5 ml PRN Q12HR PRN PO COUGH 10/08/20 22:30 UNV Non-Formulary Medication (Doxycycline Hyclate ) 100 mg BID PO 10/09/20 09:00 10/09/20 12:52 DC Fluticasone Propionate (Flonase) 1 spray DAILY NS 10/09/20 09:00 10/17/20 08:01 Multivitamins/ Calcium (Thera-M Plus) 1 tab DAILY PO 10/09/20 09:00 10/17/20 08:00 Acetaminophen (Tylenol) 650 mg PRN Q6HRS PRN PO MILD PAIN / TEMP > 100.3'F 10/08/20 23:15 10/16/20 08:29 Multi-Ingredient Ointment (Analgesic [place]) 1 gunner PRN QID PRN TP MUSCLE PAIN 10/08/20 23:15 Al Hydroxide/Mg Hydroxide (Mylanta Plus Xs) 15 ml PRN AFTMEALHC PRN PO DYSPEPSIA 10/08/20 23:15 10/09/20 00:04 DC Magnesium Hydroxide (Milk Of Magnesia) 2,400 mg PRN QHS PRN PO CONSTIPATION 10/08/20 23:15 10/09/20 00:04 DC Albuterol Sulfate (Ventolin) 2.5 mg PRN Q6HRS PRN NEB SHORTNESS OF BREATH 10/09/20 01:30 Cancel Albuterol Sulfate (Ventolin Hfa Inhaler) 1 puff PRN Q6HRS PRN INH SHORTNESS OF BREATH 10/09/20 13:45 10/14/20 08:02 Olanzapine (ZyPREXA ZYDIS) 2.5 mg PRN Q2HR PRN PO PSYCHOSIS 10/09/20 19:45 [place] Carbonate 300 mg HS PO 10/09/20 21:00 10/16/20 11:24 DC 10/15/20 20:48 Calcium Carbonate/ Glycine (Tums) 500 mg PRN AFTMEALHC PRN PO INDIGESTION 10/10/20 17:00 UNV Mirtazapine (Remeron) 7.5 mg QHS PO 10/11/20 21:00 10/17/20 20:29 Trazodone HCl (Desyrel) 25 mg PRN QHS PRN PO INSOMNIA, MAY REPEAT X2 10/11/20 20:00 [place] Carbonate 150 mg DAILY PO 10/13/20 09:00 10/16/20 11:24 DC 10/16/20 08:24 Docusate Sodium (Colace) 100 mg HS PO 10/13/20 20:15 10/17/20 20:27 [place] Carbonate 300 mg BID PO 10/16/20 21:00 10/17/20 20:29 Risperidone (RisperDAL) 1 mg QHS PO 10/16/20 21:00 10/17/20 20:29 [place] Carbonate 150 mg 1X ONCE PO 10/16/20 12:00 10/16/20 12:01 DC 10/16/20 12:16 I have reviewed the current psychotropics carefully including drug interactions. Risk benefit ratio favors no change other than as noted in my dictated progress note. Diagnosis: Problems: (1) Impulse control disorder, unspecified (2) Anxiety disorder, unspecified (3) Bipolar disorder, current episode mixed, severe, with psychotic features VARNU CA MD Oct 17, 2020 21:57
[2020-10-18 05:51] VITALS: BP 117/72
[2020-10-18] MEDS: ASPIRIN 325 MG TABLET PO SCH (09:28)
[2020-10-18] MEDS: FERROUS SULFATE 325 MG TABLET. PO SCH ×2 (09:29→17:00)
[2020-10-18] MEDS: MONTELUKAST 10 MG TABLET. PO SCH (09:29)
[2020-10-18] MEDS: MULTIVITAMIN with MINERAL TABLET. PO SCH (09:29)
[2020-10-18] MEDS: FLUTICASONE 50MCG/NASAL SPRAY 16GM BOTTLE. NS SCH (09:29)
[2020-10-18] MEDS: LITHIUM CARBONATE 300 MG TABLET PO SCH ×2 (09:29→20:38)
[2020-10-18] MEDS: HYDROcodone/APAP 5/325MG 1 TAB TABLET PO PRN ×3 (09:44→20:52)
--- NOTE | 2020-10-18 15:11 | NUR ---
Pt up adl for meals. Has been attention seeking and constantly asking for phone. Has been compliant with meds and cares. Not hyperverbal today.
[2020-10-18 15:31] VITALS: BP 126/71
[2020-10-18] MEDS: ZOLPIDEM 5 MG TABLET. PO SCH (20:38)
[2020-10-18] MEDS: DOCUSATE SODIUM 100 MG CAPSULE PO SCH (20:38)
[2020-10-18] MEDS: traZODone 50 MG TABLET. PO SCH (20:38)
[2020-10-18] MEDS: MIRTAZAPINE 7.5 MG TABLET. PO SCH (20:39)
[2020-10-18] MEDS: risperiDONE 1 MG TABLET. PO SCH (20:39)
[2020-10-18] MEDS: MELATONIN 3 MG TABLET PO SCH (20:39)
--- NOTE | 2020-10-18 22:00 | PDOC ---
Exam Note: Evangelist Note: Please also refer to the separate dictated note~for this date of service dictated separately.~Patient seen individually. Discussed the patient with Nursing staff reviewed the chart.~Reviewed interim history and current functioning. Reviewed vital signs,~Labs/ Radiology~and current medications noted below. Continue current treatment with the changes noted in the dictated addendum note Assessment: Vital Signs/I&O: Vital Signs Date Time Temp Pulse Resp B/P (MAP) Pulse Ox O2 Delivery O2 Flow Rate FiO2 10/18/20 15:31 97.8 84 19 126/71 (89) 98 Room Air I & O 10/17/20 10/17/20 10/18/20 15:00 23:00 07:00 Intake Total 1060 ml 410 ml Balance 1060 ml 410 ml Current Medications: Meds: Current Medications Medications (Trade) Dose Ordered Sig/Jessica Route PRN Reason Start Time Stop Time Status Last Admin Dose Admin Albuterol Sulfate (Ventolin) 1 mg PRN Q6HRS PRN IH FOR ASTHMA 10/08/20 22:30 10/08/20 22:41 DC Amoxicillin/ Clavulanate Potassium (Augmentin 875/ 125mg) 1 tab BID PO 10/09/20 09:00 10/09/20 12:52 DC Aspirin (Mikal Aspirin) 325 mg DAILY PO 10/09/20 09:00 10/18/20 09:28 Buspirone HCl (Buspar) 5 mg BID PO 10/08/20 23:00 10/10/20 21:00 DC 10/10/20 20:27 Ferrous Sulfate (Feosol) 325 mg BIDWMEALS PO 10/09/20 08:00 10/18/20 17:00 Acetaminophen/ Hydrocodone Bitart (Lortab 5/325) 1 tab PRN Q4HRS PRN PO MODERATE TO SEVERE PAIN 10/08/20 22:30 10/18/20 13:47 Levothyroxine Sodium (Synthroid) 25 mcg WEEKLYAC PO 10/15/20 07:00 10/09/20 12:52 DC Melatonin (Melatonin) 3 mg HS PO 10/08/20 21:00 10/18/20 20:39 Montelukast Sodium (Singulair) 10 mg DAILY PO 10/09/20 09:00 10/18/20 09:29 Polyethylene Glycol (miraLAX) 17 gm PRN DAILY PRN PO CONSTIPATION 10/08/20 22:30 10/16/20 08:29 Prednisone (Prednisone) 20 mg DAILY PO 10/09/20 09:00 10/09/20 14:24 DC 10/09/20 08:13 Risperidone (RisperDAL) 0.5 mg QHS PO 10/08/20 23:00 10/16/20 11:24 DC 10/15/20 20:49 Trazodone HCl (Desyrel) 25 mg HS PO 10/08/20 23:00 10/18/20 20:38 Zolpidem Tartrate (Ambien) 5 mg HS PO 10/08/20 23:00 10/18/20 20:38 Non-Formulary Medication (Chlorpheniramine/ Pe/Codeine (Capcof Liquid)) 5 ml PRN Q12HR PRN PO COUGH 10/08/20 22:30 UNV Non-Formulary Medication (Doxycycline Hyclate ) 100 mg BID PO 10/09/20 09:00 10/09/20 12:52 DC Fluticasone Propionate (Flonase) 1 spray DAILY NS 10/09/20 09:00 10/18/20 09:29 Multivitamins/ Calcium (Thera-M Plus) 1 tab DAILY PO 10/09/20 09:00 10/18/20 09:29 Acetaminophen (Tylenol) 650 mg PRN Q6HRS PRN PO MILD PAIN / TEMP > 100.3'F 10/08/20 23:15 10/16/20 08:29 Multi-Ingredient Ointment (Analgesic [place]) 1 gunner PRN QID PRN TP MUSCLE PAIN 10/08/20 23:15 Al Hydroxide/Mg Hydroxide (Mylanta Plus Xs) 15 ml PRN AFTMEALHC PRN PO DYSPEPSIA 10/08/20 23:15 10/09/20 00:04 DC Magnesium Hydroxide (Milk Of Magnesia) 2,400 mg PRN QHS PRN PO CONSTIPATION 10/08/20 23:15 10/09/20 00:04 DC Albuterol Sulfate (Ventolin) 2.5 mg PRN Q6HRS PRN NEB SHORTNESS OF BREATH 10/09/20 01:30 Cancel Albuterol Sulfate (Ventolin Hfa Inhaler) 1 puff PRN Q6HRS PRN INH SHORTNESS OF BREATH 10/09/20 13:45 10/14/20 08:02 Olanzapine (ZyPREXA ZYDIS) 2.5 mg PRN Q2HR PRN PO PSYCHOSIS 10/09/20 19:45 [place] Carbonate 300 mg HS PO 10/09/20 21:00 10/16/20 11:24 DC 10/15/20 20:48 Calcium Carbonate/ Glycine (Tums) 500 mg PRN AFTMEALHC PRN PO INDIGESTION 10/10/20 17:00 UNV Mirtazapine (Remeron) 7.5 mg QHS PO 10/11/20 21:00 10/18/20 20:39 Trazodone HCl (Desyrel) 25 mg PRN QHS PRN PO INSOMNIA, MAY REPEAT X2 10/11/20 20:00 [place] Carbonate 150 mg DAILY PO 10/13/20 09:00 10/16/20 11:24 DC 10/16/20 08:24 Docusate Sodium (Colace) 100 mg HS PO 10/13/20 20:15 10/18/20 20:38 [place] Carbonate 300 mg BID PO 10/16/20 21:00 10/18/20 20:38 Risperidone (RisperDAL) 1 mg QHS PO 10/16/20 21:00 10/18/20 20:39 [place] Carbonate 150 mg 1X ONCE PO 10/16/20 12:00 10/16/20 12:01 DC 10/16/20 12:16 Current Medications Medications (Trade) Dose Ordered Sig/Jessica Route PRN Reason Start Time Stop Time Status Last Admin Dose Admin Albuterol Sulfate (Ventolin) 1 mg PRN Q6HRS PRN IH FOR ASTHMA 10/08/20 22:30 10/08/20 22:41 DC Amoxicillin/ Clavulanate Potassium (Augmentin 875/ 125mg) 1 tab BID PO 10/09/20 09:00 10/09/20 12:52 DC Aspirin (Mikal Aspirin) 325 mg DAILY PO 10/09/20 09:00 10/18/20 09:28 Buspirone HCl (Buspar) 5 mg BID PO 10/08/20 23:00 10/10/20 21:00 DC 10/10/20 20:27 Ferrous Sulfate (Feosol) 325 mg BIDWMEALS PO 10/09/20 08:00 10/18/20 17:00 Acetaminophen/ Hydrocodone Bitart (Lortab 5/325) 1 tab PRN Q4HRS PRN PO MODERATE TO SEVERE PAIN 10/08/20 22:30 10/18/20 13:47 Levothyroxine Sodium (Synthroid) 25 mcg WEEKLYAC PO 10/15/20 07:00 10/09/20 12:52 DC Melatonin (Melatonin) 3 mg HS PO 10/08/20 21:00 10/18/20 20:39 Montelukast Sodium (Singulair) 10 mg DAILY PO 10/09/20 09:00 10/18/20 09:29 Polyethylene Glycol (miraLAX) 17 gm PRN DAILY PRN PO CONSTIPATION 10/08/20 22:30 10/16/20 08:29 Prednisone (Prednisone) 20 mg DAILY PO 10/09/20 09:00 10/09/20 14:24 DC 10/09/20 08:13 Risperidone (RisperDAL) 0.5 mg QHS PO 10/08/20 23:00 10/16/20 11:24 DC 10/15/20 20:49 Trazodone HCl (Desyrel) 25 mg HS PO 10/08/20 23:00 10/18/20 20:38 Zolpidem Tartrate (Ambien) 5 mg HS PO 10/08/20 23:00 10/18/20 20:38 Non-Formulary Medication (Chlorpheniramine/ Pe/Codeine (Capcof Liquid)) 5 ml PRN Q12HR PRN PO COUGH 10/08/20 22:30 UNV Non-Formulary Medication (Doxycycline Hyclate ) 100 mg BID PO 10/09/20 09:00 10/09/20 12:52 DC Fluticasone Propionate (Flonase) 1 spray DAILY NS 10/09/20 09:00 10/18/20 09:29 Multivitamins/ Calcium (Thera-M Plus) 1 tab DAILY PO 10/09/20 09:00 10/18/20 09:29 Acetaminophen (Tylenol) 650 mg PRN Q6HRS PRN PO MILD PAIN / TEMP > 100.3'F 10/08/20 23:15 10/16/20 08:29 Multi-Ingredient Ointment (Analgesic [place]) 1 gunner PRN QID PRN TP MUSCLE PAIN 10/08/20 23:15 Al Hydroxide/Mg Hydroxide (Mylanta Plus Xs) 15 ml PRN AFTMEALHC PRN PO DYSPEPSIA 10/08/20 23:15 10/09/20 00:04 DC Magnesium Hydroxide (Milk Of Magnesia) 2,400 mg PRN QHS PRN PO CONSTIPATION 10/08/20 23:15 10/09/20 00:04 DC Albuterol Sulfate (Ventolin) 2.5 mg PRN Q6HRS PRN NEB SHORTNESS OF BREATH 10/09/20 01:30 Cancel Albuterol Sulfate (Ventolin Hfa Inhaler) 1 puff PRN Q6HRS PRN INH SHORTNESS OF BREATH 10/09/20 13:45 10/14/20 08:02 Olanzapine (ZyPREXA ZYDIS) 2.5 mg PRN Q2HR PRN PO PSYCHOSIS 10/09/20 19:45 [place] Carbonate 300 mg HS PO 10/09/20 21:00 10/16/20 11:24 DC 10/15/20 20:48 Calcium Carbonate/ Glycine (Tums) 500 mg PRN AFTMEALHC PRN PO INDIGESTION 10/10/20 17:00 UNV Mirtazapine (Remeron) 7.5 mg QHS PO 10/11/20 21:00 10/18/20 20:39 Trazodone HCl (Desyrel) 25 mg PRN QHS PRN PO INSOMNIA, MAY REPEAT X2 10/11/20 20:00 [place] Carbonate 150 mg DAILY PO 10/13/20 09:00 10/16/20 11:24 DC 10/16/20 08:24 Docusate Sodium (Colace) 100 mg HS PO 10/13/20 20:15 10/18/20 20:38 [place] Carbonate 300 mg BID PO 10/16/20 21:00 10/18/20 20:38 Risperidone (RisperDAL) 1 mg QHS PO 10/16/20 21:00 10/18/20 20:39 [place] Carbonate 150 mg 1X ONCE PO 10/16/20 12:00 10/16/20 12:01 DC 10/16/20 12:16 I have reviewed the current psychotropics carefully including drug interactions. Risk benefit ratio favors no change other than as noted in my dictated progress note. Diagnosis: Problems: (1) Impulse control disorder, unspecified (2) Anxiety disorder, unspecified (3) Bipolar disorder, current episode mixed, severe, with psychotic features VARUN CA MD Oct 18, 2020 22:00
--- NOTE | 2020-10-18 23:08 | NUR ---
Patient located in her room on assumption of care, awake in bed. Patient is hyperverbal with rambling speech. Compliant with assessments and medications whole. She complained of left foot pain and asked for a pain pill. While this nurse retrieved the pain medicine, patient came out to the hallway. When approached with the pain medicine, patient asked why she didn't get her little red pill (colace). This nurse answered that she did, in fact, get her colace. She stood up angrily, shoved her walker up against the wall, and stormed into her room. This nurse left the patient alone for a chance for her to deescalate on her own. Re-approached her a short time later to inquire whether or not she wanted to take the pain pill she asked for, and she irritability stated "I'll take it in the morning, now get out of my room." Patient appears to be sleeping comfortably at present time. Will continue to monitor.
[2020-10-19] MEDS: HYDROcodone/APAP 5/325MG 1 TAB TABLET PO PRN ×2 (05:26→17:54)
[2020-10-19 06:05] VITALS: BP 111/68
[2020-10-19] MEDS: FERROUS SULFATE 325 MG TABLET. PO SCH ×2 (08:27→17:12)
[2020-10-19] MEDS: MULTIVITAMIN with MINERAL TABLET. PO SCH (08:27)
[2020-10-19] MEDS: LITHIUM CARBONATE 300 MG TABLET PO SCH ×2 (08:27→20:19)
[2020-10-19] MEDS: MONTELUKAST 10 MG TABLET. PO SCH (08:27)
[2020-10-19] MEDS: ASPIRIN 325 MG TABLET PO SCH (08:28)
[2020-10-19] MEDS: FLUTICASONE 50MCG/NASAL SPRAY 16GM BOTTLE. NS SCH (08:30)
[2020-10-19 10:04] LABS: BASO # 0.1 x10^3/uL (0.0-0.2); BASO % 1 % (0-3); EOS # 0.2 x10^3/uL (0.0-0.7); EOS % 4 % (0-3); HEMATOCRIT 29.7 % (36.0-47.0); HEMOGLOBIN 9.5 g/dL (12.0-15.5); LYMPH # 1.5 x10^3/uL (1.0-4.8); LYMPH % 22 % (24-48); MEAN CORPUSCULAR HEMOGLOBIN 32 pg (25-35); MEAN CORPUSCULAR HGB CONC 32 g/dL (31-37); MEAN CORPUSCULAR VOLUME 99 fL (79-100); MONO # 0.4 x10^3/uL (0.0-1.1); MONO % 5 % (0-9); NEUT # 4.8 x10^3uL (1.8-7.7); NEUT % 68 % (31-73); PLATELET COUNT 257 x10^3/uL (140-400); RED BLOOD COUNT 3.01 x10^6/uL (3.50-5.40); RED CELL DISTRIBUTION WIDTH 16.6 % (11.5-14.5); WHITE BLOOD COUNT 7.1 x10^3/uL (4.0-11.0)
--- NOTE | 2020-10-19 10:32 | NUR ---
Nurse Note Patient up ambulating with walker, gait steady. Lung sounds clear, resp. with ease. Patient very talkative and intrusive. Socializes with other patients. Assist with ADLs. Patient feed self . Patient compliant with medication. toilet self contince of bowel and bladder. No new behaviors noted at this time.
[2020-10-19 10:36] LABS: ALBUMIN 2.6 g/dL (3.4-5.0); ALBUMIN/GLOBULIN RATIO 0.8 (1.0-1.7); CALCIUM 9.5 mg/dL (8.5-10.1); CREATININE 1.1 mg/dL (0.6-1.0); GFR 49.8; TOTAL BILIRUBIN 0.2 mg/dL (0.2-1.0); TOTAL PROTEIN 5.9 g/dL (6.4-8.2)
[2020-10-19 16:25] VITALS: BP 116/63
--- NOTE | 2020-10-19 17:52 | NUR ---
Patient complaining of Left leg pain says it is a 9 on the pain scale. Patient received prn hydrocodone and prn inhaler.
[2020-10-19] MEDS: ALBUTEROL SULFATE 8GM INHALER. INH PRN (17:53)
[2020-10-19] MEDS: DOCUSATE SODIUM 100 MG CAPSULE PO SCH (20:18)
[2020-10-19] MEDS: risperiDONE 1 MG TABLET. PO SCH (20:18)
[2020-10-19] MEDS: ZOLPIDEM 5 MG TABLET. PO SCH (20:19)
[2020-10-19] MEDS: traZODone 50 MG TABLET. PO SCH (20:19)
[2020-10-19] MEDS: MELATONIN 3 MG TABLET PO SCH (20:20)
[2020-10-19] MEDS: MIRTAZAPINE 7.5 MG TABLET. PO SCH (20:20)
[2020-10-19] MEDS: METHYL SALICYLATE/MENTHOL TOPICAL OINTMENT 57GM TUBE. TP PRN (20:20)
--- NOTE | 2020-10-19 22:06 | PDOC ---
Exam Note: Evangelist Note: Please also refer to the separate dictated note~for this date of service dictated separately.~Patient seen individually. Discussed the patient with Nursing staff reviewed the chart.~Reviewed interim history and current functioning. Reviewed vital signs,~Labs/ Radiology~and current medications noted below. Continue current treatment with the changes noted in the dictated addendum note Assessment: Vital Signs/I&O: Vital Signs Date Time Temp Pulse Resp B/P (MAP) Pulse Ox O2 Delivery O2 Flow Rate FiO2 10/19/20 19:30 97 10/19/20 16:25 98.0 74 20 116/63 (80) 10/18/20 15:31 Room Air I & O 10/18/20 10/18/20 10/19/20 15:00 23:00 07:00 Intake Total 960 ml 480 ml Balance 960 ml 480 ml Labs: Laboratory Tests Test 10/19/20 09:05 White Blood Count 7.1 x10^3/uL (4.0-11.0) Red Blood Count 3.01 x10^6/uL (3.50-5.40) L Hemoglobin 9.5 g/dL (12.0-15.5) L Hematocrit 29.7 % (36.0-47.0) L Mean Corpuscular Volume 99 fL (79-100) Mean Corpuscular Hemoglobin 32 pg (25-35) Mean Corpuscular Hemoglobin Concent 32 g/dL (31-37) Red Cell Distribution Width 16.6 % (11.5-14.5) H Platelet Count 257 x10^3/uL (140-400) Neutrophils (%) (Auto) 68 % (31-73) Lymphocytes (%) (Auto) 22 % (24-48) L Monocytes (%) (Auto) 5 % (0-9) Eosinophils (%) (Auto) 4 % (0-3) H Basophils (%) (Auto) 1 % (0-3) Neutrophils # (Auto) 4.8 x10^3uL (1.8-7.7) Lymphocytes # (Auto) 1.5 x10^3/uL (1.0-4.8) Monocytes # (Auto) 0.4 x10^3/uL (0.0-1.1) Eosinophils # (Auto) 0.2 x10^3/uL (0.0-0.7) Basophils # (Auto) 0.1 x10^3/uL (0.0-0.2) Sodium Level 142 mmol/L (136-145) Potassium Level 4.0 mmol/L (3.5-5.1) Chloride Level 110 mmol/L (98-107) H Carbon Dioxide Level 22 mmol/L (21-32) Anion Gap 10 (6-14) Blood Urea Nitrogen 13 mg/dL (7-20) Creatinine 1.1 mg/dL (0.6-1.0) H Estimated GFR (Cockcroft-Gault) 49.8 BUN/Creatinine Ratio 12 (6-20) Glucose Level 177 mg/dL (70-99) H Calcium Level 9.5 mg/dL (8.5-10.1) Total Bilirubin 0.2 mg/dL (0.2-1.0) Aspartate Amino Transferase (AST) 24 U/L (15-37) Alanine Aminotransferase (ALT) 37 U/L (14-59) Alkaline Phosphatase 72 U/L (46-116) Total Protein 5.9 g/dL (6.4-8.2) L Albumin 2.6 g/dL (3.4-5.0) L Albumin/Globulin Ratio 0.8 (1.0-1.7) L [place] Level 0.8 mmol/L (0.6-1.2) [place] Last Dose Date 10/18/20 [place] Last Dose Time 2100 Current Medications: Meds: Laboratory Tests Test 10/19/20 09:05 White Blood Count 7.1 x10^3/uL Red Blood Count 3.01 x10^6/uL Hemoglobin 9.5 g/dL Hematocrit 29.7 % Mean Corpuscular Volume 99 fL Mean Corpuscular Hemoglobin 32 pg Mean Corpuscular Hemoglobin Concent 32 g/dL Red Cell Distribution Width 16.6 % Platelet Count 257 x10^3/uL Neutrophils (%) (Auto) 68 % Lymphocytes (%) (Auto) 22 % Monocytes (%) (Auto) 5 % Eosinophils (%) (Auto) 4 % Basophils (%) (Auto) 1 % Neutrophils # (Auto) 4.8 x10^3uL Lymphocytes # (Auto) 1.5 x10^3/uL Monocytes # (Auto) 0.4 x10^3/uL Eosinophils # (Auto) 0.2 x10^3/uL Basophils # (Auto) 0.1 x10^3/uL Sodium Level 142 mmol/L Potassium Level 4.0 mmol/L Chloride Level 110 mmol/L Carbon Dioxide Level 22 mmol/L Anion Gap 10 Blood Urea Nitrogen 13 mg/dL Creatinine 1.1 mg/dL Estimated GFR (Cockcroft-Gault) 49.8 BUN/Creatinine Ratio 12 Glucose Level 177 mg/dL Calcium Level 9.5 mg/dL Total Bilirubin 0.2 mg/dL Aspartate Amino Transf (AST/SGOT) 24 U/L Alanine Aminotransferase (ALT/SGPT) 37 U/L Alkaline Phosphatase 72 U/L Total Protein 5.9 g/dL Albumin 2.6 g/dL Albumin/Globulin Ratio 0.8 [place] Level 0.8 mmol/L [place] Last Dose Date 10/18/20 [place] Last Dose Time 2100 Current Medications Medications (Trade) Dose Ordered Sig/Jessica Route PRN Reason Start Time Stop Time Status Last Admin Dose Admin Albuterol Sulfate (Ventolin) 1 mg PRN Q6HRS PRN IH FOR ASTHMA 10/08/20 22:30 10/08/20 22:41 DC Amoxicillin/ Clavulanate Potassium (Augmentin 875/ 125mg) 1 tab BID PO 10/09/20 09:00 10/09/20 12:52 DC Aspirin (Mikal Aspirin) 325 mg DAILY PO 10/09/20 09:00 10/19/20 08:28 Buspirone HCl (Buspar) 5 mg BID PO 10/08/20 23:00 10/10/20 21:00 DC 10/10/20 20:27 Ferrous Sulfate (Feosol) 325 mg BIDWMEALS PO 10/09/20 08:00 10/19/20 17:12 Acetaminophen/ Hydrocodone Bitart (Lortab 5/325) 1 tab PRN Q4HRS PRN PO MODERATE TO SEVERE PAIN 10/08/20 22:30 10/19/20 17:54 Levothyroxine Sodium (Synthroid) 25 mcg WEEKLYAC PO 10/15/20 07:00 10/09/20 12:52 DC Melatonin (Melatonin) 3 mg HS PO 10/08/20 21:00 10/19/20 20:20 Montelukast Sodium (Singulair) 10 mg DAILY PO 10/09/20 09:00 10/19/20 08:27 Polyethylene Glycol (miraLAX) 17 gm PRN DAILY PRN PO CONSTIPATION 10/08/20 22:30 10/16/20 08:29 Prednisone (Prednisone) 20 mg DAILY PO 10/09/20 09:00 10/09/20 14:24 DC 10/09/20 08:13 Risperidone (RisperDAL) 0.5 mg QHS PO 10/08/20 23:00 10/16/20 11:24 DC 10/15/20 20:49 Trazodone HCl (Desyrel) 25 mg HS PO 10/08/20 23:00 10/19/20 20:19 Zolpidem Tartrate (Ambien) 5 mg HS PO 10/08/20 23:00 10/19/20 20:19 Non-Formulary Medication (Chlorpheniramine/ Pe/Codeine (Capcof Liquid)) 5 ml PRN Q12HR PRN PO COUGH 10/08/20 22:30 UNV Non-Formulary Medication (Doxycycline Hyclate ) 100 mg BID PO 10/09/20 09:00 10/09/20 12:52 DC Fluticasone Propionate (Flonase) 1 spray DAILY NS 10/09/20 09:00 10/19/20 08:30 Multivitamins/ Calcium (Thera-M Plus) 1 tab DAILY PO 10/09/20 09:00 10/19/20 08:27 Acetaminophen (Tylenol) 650 mg PRN Q6HRS PRN PO MILD PAIN / TEMP > 100.3'F 10/08/20 23:15 10/16/20 08:29 Multi-Ingredient Ointment (Analgesic [place]) 1 gunner PRN QID PRN TP MUSCLE PAIN 10/08/20 23:15 10/19/20 20:20 Al Hydroxide/Mg Hydroxide (Mylanta Plus Xs) 15 ml PRN AFTMEALHC PRN PO DYSPEPSIA 10/08/20 23:15 10/09/20 00:04 DC Magnesium Hydroxide (Milk Of Magnesia) 2,400 mg PRN QHS PRN PO CONSTIPATION 10/08/20 23:15 10/09/20 00:04 DC Albuterol Sulfate (Ventolin) 2.5 mg PRN Q6HRS PRN NEB SHORTNESS OF BREATH 10/09/20 01:30 Cancel Albuterol Sulfate (Ventolin Hfa Inhaler) 1 puff PRN Q6HRS PRN INH SHORTNESS OF BREATH 10/09/20 13:45 10/19/20 17:53 Olanzapine (ZyPREXA ZYDIS) 2.5 mg PRN Q2HR PRN PO PSYCHOSIS 10/09/20 19:45 10/19/20 08:30 [place] Carbonate 300 mg HS PO 10/09/20 21:00 10/16/20 11:24 DC 10/15/20 20:48 Calcium Carbonate/ Glycine (Tums) 500 mg PRN AFTMEALHC PRN PO INDIGESTION 10/10/20 17:00 UNV Mirtazapine (Remeron) 7.5 mg QHS PO 10/11/20 21:00 10/19/20 20:20 Trazodone HCl (Desyrel) 25 mg PRN QHS PRN PO INSOMNIA, MAY REPEAT X2 10/11/20 20:00 [place] Carbonate 150 mg DAILY PO 10/13/20 09:00 10/16/20 11:24 DC 10/16/20 08:24 Docusate Sodium (Colace) 100 mg HS PO 10/13/20 20:15 10/19/20 20:18 [place] Carbonate 300 mg BID PO 10/16/20 21:00 10/19/20 20:19 Risperidone (RisperDAL) 1 mg QHS PO 10/16/20 21:00 10/19/20 20:18 [place] Carbonate 150 mg 1X ONCE PO 10/16/20 12:00 10/16/20 12:01 DC 10/16/20 12:16 I have reviewed the current psychotropics carefully including drug interactions. Risk benefit ratio favors no change other than as noted in my dictated progress note. Diagnosis: Problems: (1) Impulse control disorder, unspecified (2) Anxiety disorder, unspecified (3) Bipolar disorder, current episode mixed, severe, with psychotic features VARUN CA MD Oct 19, 2020 22:06
--- NOTE | 2020-10-19 22:44 | NUR ---
Patient is located in her room on assumption of care, awake in bed and listening to music on the colleen. She is better spirits than she was the previous evening. Compliant with assessments and medications taken whole. Requested analgesic balm for her leg pain, which she received at . No agitation, no delusions or hallucinations voiced. Patient appears to be sleeping comfortably at present time. Will continue to monitor.
[2020-10-20] MEDS: ALBUTEROL SULFATE 8GM INHALER. INH PRN (06:00)
[2020-10-20 06:22] VITALS: BP 107/75
[2020-10-20] MEDS: ASPIRIN 325 MG TABLET PO SCH (08:53)
[2020-10-20] MEDS: HYDROcodone/APAP 5/325MG 1 TAB TABLET PO PRN (08:53)
[2020-10-20] MEDS: FERROUS SULFATE 325 MG TABLET. PO SCH ×2 (08:54→17:11)
[2020-10-20] MEDS: MULTIVITAMIN with MINERAL TABLET. PO SCH (08:54)
[2020-10-20] MEDS: LITHIUM CARBONATE 300 MG TABLET PO SCH ×2 (08:54→20:45)
[2020-10-20] MEDS: MONTELUKAST 10 MG TABLET. PO SCH (08:54)
[2020-10-20] MEDS: FLUTICASONE 50MCG/NASAL SPRAY 16GM BOTTLE. NS SCH (08:55)
--- NOTE | 2020-10-20 09:17 | PDOC ---
Exam Note: Evangelist Note: This note is a late entry for 10/16/2020 covers elements not covered in my initial note. Subjective: The patient was reviewed at treatment team meeting on telehealth rounds in the morning of 10/16/2020 because of the COVID-19 pandemic and my own ill health and restrictions to be on the unit consequent to this with Winifred Chávez, Babita German (elementary school social worker), Iveth, activity therapy and Rosa TEJADA, discussed and reviewed the chart. We reviewed the patients progress, history, diagnoses, treatment and side-effects of medications. The patient slept 7-1/4 hours previous night. She remains manic, hyperverbal, somewhat impulsive and loud in her responses. Family is planning for her to be home with her niece. Also discussed with Leonardo TEJADA in the evening on telehealth rounds. She seems a little less anxious and hyperverbal. Review of Systems: She complains of some lower leg pain. No CV, , pulmonary, eye, ENT system symptoms on review. Mental Status Exam: The patient is reasonably oriented. Speech coherent, rapid. Even though she remains hyperverbal, impulsive, and loud at time it is better than before. Abstraction fair. Computation impaired. Language function intact. Attention span short. Mood and affect less anxious, manic. No suicidal or homicidal ideation. Laboratory Data: Reviewed. Impression: Bipolar disorder, manic with psychotic features. Anxiety disorder unspecified. Early signs of tardive dyskinesia. Impulse control disorder unspecified. Plan: [place] level is 0.5 on lithium 150 mg a.m. and 300 mg h.s. We will increase to 300 mg twice a day. Increase Risperdal from 0.5 mg daily to 1 mg daily. Rest unchanged for now. Assessment: Vital Signs/I&O: Vital Signs Date Time Temp Pulse Resp B/P (MAP) Pulse Ox O2 Delivery O2 Flow Rate FiO2 10/20/20 08:53 18 Room Air 10/20/20 06:22 97.7 89 107/75 (86) 96 I & O 10/19/20 10/19/20 10/20/20 15:00 23:00 07:00 Intake Total 840 ml 480 ml Balance 840 ml 480 ml Current Medications: Meds: Current Medications Medications (Trade) Dose Ordered Sig/Jessica Route PRN Reason Start Time Stop Time Status Last Admin Dose Admin Albuterol Sulfate (Ventolin) 1 mg PRN Q6HRS PRN IH FOR ASTHMA 10/08/20 22:30 10/08/20 22:41 DC Amoxicillin/ Clavulanate Potassium (Augmentin 875/ 125mg) 1 tab BID PO 10/09/20 09:00 10/09/20 12:52 DC Aspirin (Mikal Aspirin) 325 mg DAILY PO 10/09/20 09:00 10/20/20 08:53 Buspirone HCl (Buspar) 5 mg BID PO 10/08/20 23:00 10/10/20 21:00 DC 10/10/20 20:27 Ferrous Sulfate (Feosol) 325 mg BIDWMEALS PO 10/09/20 08:00 10/20/20 08:54 Acetaminophen/ Hydrocodone Bitart (Lortab 5/325) 1 tab PRN Q4HRS PRN PO MODERATE TO SEVERE PAIN 10/08/20 22:30 10/20/20 08:53 Levothyroxine Sodium (Synthroid) 25 mcg WEEKLYAC PO 10/15/20 07:00 10/09/20 12:52 DC Melatonin (Melatonin) 3 mg HS PO 10/08/20 21:00 10/19/20 20:20 Montelukast Sodium (Singulair) 10 mg DAILY PO 10/09/20 09:00 10/20/20 08:54 Polyethylene Glycol (miraLAX) 17 gm PRN DAILY PRN PO CONSTIPATION 10/08/20 22:30 10/16/20 08:29 Prednisone (Prednisone) 20 mg DAILY PO 10/09/20 09:00 10/09/20 14:24 DC 10/09/20 08:13 Risperidone (RisperDAL) 0.5 mg QHS PO 10/08/20 23:00 10/16/20 11:24 DC 10/15/20 20:49 Trazodone HCl (Desyrel) 25 mg HS PO 10/08/20 23:00 10/19/20 20:19 Zolpidem Tartrate (Ambien) 5 mg HS PO 10/08/20 23:00 10/19/20 20:19 Non-Formulary Medication (Chlorpheniramine/ Pe/Codeine (Capcof Liquid)) 5 ml PRN Q12HR PRN PO COUGH 10/08/20 22:30 UNV Non-Formulary Medication (Doxycycline Hyclate ) 100 mg BID PO 10/09/20 09:00 10/09/20 12:52 DC Fluticasone Propionate (Flonase) 1 spray DAILY NS 10/09/20 09:00 10/20/20 08:55 Multivitamins/ Calcium (Thera-M Plus) 1 tab DAILY PO 10/09/20 09:00 10/20/20 08:54 Acetaminophen (Tylenol) 650 mg PRN Q6HRS PRN PO MILD PAIN / TEMP > 100.3'F 10/08/20 23:15 10/16/20 08:29 Multi-Ingredient Ointment (Analgesic [place]) 1 gunner PRN QID PRN TP MUSCLE PAIN 10/08/20 23:15 10/19/20 20:20 Al Hydroxide/Mg Hydroxide (Mylanta Plus Xs) 15 ml PRN AFTMEALHC PRN PO DYSPEPSIA 10/08/20 23:15 10/09/20 00:04 DC Magnesium Hydroxide (Milk Of Magnesia) 2,400 mg PRN QHS PRN PO CONSTIPATION 10/08/20 23:15 10/09/20 00:04 DC Albuterol Sulfate (Ventolin) 2.5 mg PRN Q6HRS PRN NEB SHORTNESS OF BREATH 10/09/20 01:30 Cancel Albuterol Sulfate (Ventolin Hfa Inhaler) 1 puff PRN Q6HRS PRN INH SHORTNESS OF BREATH 10/09/20 13:45 10/20/20 06:00 Olanzapine (ZyPREXA ZYDIS) 2.5 mg PRN Q2HR PRN PO PSYCHOSIS 10/09/20 19:45 10/19/20 08:30 [place] Carbonate 300 mg HS PO 10/09/20 21:00 10/16/20 11:24 DC 10/15/20 20:48 Calcium Carbonate/ Glycine (Tums) 500 mg PRN AFTMEALHC PRN PO INDIGESTION 10/10/20 17:00 UNV Mirtazapine (Remeron) 7.5 mg QHS PO 10/11/20 21:00 10/19/20 20:20 Trazodone HCl (Desyrel) 25 mg PRN QHS PRN PO INSOMNIA, MAY REPEAT X2 9/4/21 20:00 [place] Carbonate 150 mg DAILY PO 10/13/20 09:00 10/16/20 11:24 DC 10/16/20 08:24 Docusate Sodium (Colace) 100 mg HS PO 10/13/20 20:15 10/19/20 20:18 [place] Carbonate 300 mg BID PO 10/16/20 21:00 10/20/20 08:54 Risperidone (RisperDAL) 1 mg QHS PO 10/16/20 21:00 10/19/20 20:18 [place] Carbonate 150 mg 1X ONCE PO 10/16/20 12:00 10/16/20 12:01 DC 10/16/20 12:16 I have reviewed the current psychotropics carefully including drug interactions. Risk benefit ratio favors no change other than as noted in my dictated progress note. Diagnosis: Problems: (1) Impulse control disorder, unspecified (2) Anxiety disorder, unspecified (3) Bipolar disorder, current episode mixed, severe, with psychotic features VARUN CA MD Oct 20, 2020 09:17
--- NOTE | 2020-10-20 10:00 | NUR ---
CORNELIO submitted current records for Medicaid concurrent review with a request for discharge on . Pt will discharge home with niece and in need of community services for continued care.
--- NOTE | 2020-10-20 11:05 | PDOC ---
Exam Note: Evangelist Note: This note is a late entry for 10/17/2020 covers elements not covered in my initial note. Subjective: The patient was seen individually in the evening of 10/17/2020 with Leonardo TEJADA, discussed and reviewed the chart. The patient slept 7-1/2 hours previous night. She remains hyperverbal, anxious but less than before. Review of Systems: She complains of some lower leg pain. No CV, , pulmonary, eye, ENT system symptoms on review. Mental Status Exam: The patient is reasonably oriented. She was a little hyperverbal but again redirected. I addressed her diagnoses and answered her many questions and she seemed to be calmer at the end of the visit. Speech coherent, rapid. Abstraction fair. Computation impaired. Language function intact. Attention span short. Mood and affect less anxious. No suicidal or homicidal ideation. Laboratory Data: Reviewed. Impression: Bipolar disorder, manic with psychotic features. Anxiety disorder unspecified. Impulse control disorder unspecified. Plan: Continue current psychotropics. [place] has been increased. Repeat level is awaited. Risperdal has been increased to 1 mg daily. We will make further adjustments as clinically indicated. Assessment: Vital Signs/I&O: Vital Signs Date Time Temp Pulse Resp B/P (MAP) Pulse Ox O2 Delivery O2 Flow Rate FiO2 10/20/20 09:51 18 Room Air 10/20/20 06:22 97.7 89 107/75 (86) 96 I & O 10/19/20 10/19/20 10/20/20 15:00 23:00 07:00 Intake Total 840 ml 480 ml Balance 840 ml 480 ml Current Medications: Meds: Current Medications Medications (Trade) Dose Ordered Sig/Jessica Route PRN Reason Start Time Stop Time Status Last Admin Dose Admin Albuterol Sulfate (Ventolin) 1 mg PRN Q6HRS PRN IH FOR ASTHMA 10/08/20 22:30 10/08/20 22:41 DC Amoxicillin/ Clavulanate Potassium (Augmentin 875/ 125mg) 1 tab BID PO 10/09/20 09:00 10/09/20 12:52 DC Aspirin (Mikal Aspirin) 325 mg DAILY PO 10/09/20 09:00 10/20/20 08:53 Buspirone HCl (Buspar) 5 mg BID PO 10/08/20 23:00 10/10/20 21:00 DC 10/10/20 20:27 Ferrous Sulfate (Feosol) 325 mg BIDWMEALS PO 10/09/20 08:00 10/20/20 08:54 Acetaminophen/ Hydrocodone Bitart (Lortab 5/325) 1 tab PRN Q4HRS PRN PO MODERATE TO SEVERE PAIN 10/08/20 22:30 10/20/20 08:53 Levothyroxine Sodium (Synthroid) 25 mcg WEEKLYAC PO 10/15/20 07:00 10/09/20 12:52 DC Melatonin (Melatonin) 3 mg HS PO 10/08/20 21:00 10/19/20 20:20 Montelukast Sodium (Singulair) 10 mg DAILY PO 10/09/20 09:00 10/20/20 08:54 Polyethylene Glycol (miraLAX) 17 gm PRN DAILY PRN PO CONSTIPATION 10/08/20 22:30 10/16/20 08:29 Prednisone (Prednisone) 20 mg DAILY PO 10/09/20 09:00 10/09/20 14:24 DC 10/09/20 08:13 Risperidone (RisperDAL) 0.5 mg QHS PO 10/08/20 23:00 10/16/20 11:24 DC 10/15/20 20:49 Trazodone HCl (Desyrel) 25 mg HS PO 10/08/20 23:00 10/19/20 20:19 Zolpidem Tartrate (Ambien) 5 mg HS PO 10/08/20 23:00 10/19/20 20:19 Non-Formulary Medication (Chlorpheniramine/ Pe/Codeine (Capcof Liquid)) 5 ml PRN Q12HR PRN PO COUGH 10/08/20 22:30 UNV Non-Formulary Medication (Doxycycline Hyclate ) 100 mg BID PO 10/09/20 09:00 10/09/20 12:52 DC Fluticasone Propionate (Flonase) 1 spray DAILY NS 10/09/20 09:00 10/20/20 08:55 Multivitamins/ Calcium (Thera-M Plus) 1 tab DAILY PO 10/09/20 09:00 10/20/20 08:54 Acetaminophen (Tylenol) 650 mg PRN Q6HRS PRN PO MILD PAIN / TEMP > 100.3'F 10/08/20 23:15 10/16/20 08:29 Multi-Ingredient Ointment (Analgesic [place]) 1 gunner PRN QID PRN TP MUSCLE PAIN 10/08/20 23:15 10/19/20 20:20 Al Hydroxide/Mg Hydroxide (Mylanta Plus Xs) 15 ml PRN AFTMEALHC PRN PO DYSPEPSIA 10/08/20 23:15 10/09/20 00:04 DC Magnesium Hydroxide (Milk Of Magnesia) 2,400 mg PRN QHS PRN PO CONSTIPATION 10/08/20 23:15 10/09/20 00:04 DC Albuterol Sulfate (Ventolin) 2.5 mg PRN Q6HRS PRN NEB SHORTNESS OF BREATH 10/09/20 01:30 Cancel Albuterol Sulfate (Ventolin Hfa Inhaler) 1 puff PRN Q6HRS PRN INH SHORTNESS OF BREATH 10/09/20 13:45 10/20/20 06:00 Olanzapine (ZyPREXA ZYDIS) 2.5 mg PRN Q2HR PRN PO PSYCHOSIS 10/09/20 19:45 10/19/20 08:30 [place] Carbonate 300 mg HS PO 10/09/20 21:00 10/16/20 11:24 DC 10/15/20 20:48 Calcium Carbonate/ Glycine (Tums) 500 mg PRN AFTMEALHC PRN PO INDIGESTION 10/10/20 17:00 UNV Mirtazapine (Remeron) 7.5 mg QHS PO 10/11/20 21:00 10/19/20 20:20 Trazodone HCl (Desyrel) 25 mg PRN QHS PRN PO INSOMNIA, MAY REPEAT X2 10/11/20 20:00 [place] Carbonate 150 mg DAILY PO 10/13/20 09:00 10/16/20 11:24 DC 10/16/20 08:24 Docusate Sodium (Colace) 100 mg HS PO 10/13/20 20:15 10/19/20 20:18 [place] Carbonate 300 mg BID PO 10/16/20 21:00 10/20/20 08:54 Risperidone (RisperDAL) 1 mg QHS PO 10/16/20 21:00 10/19/20 20:18 [place] Carbonate 150 mg 1X ONCE PO 10/16/20 12:00 10/16/20 12:01 DC 10/16/20 12:16 I have reviewed the current psychotropics carefully including drug interactions. Risk benefit ratio favors no change other than as noted in my dictated progress note. Diagnosis: Problems: (1) Impulse control disorder, unspecified (2) Anxiety disorder, unspecified (3) Bipolar disorder, current episode mixed, severe, with psychotic features VARUN CA MD Oct 20, 2020 11:05
--- NOTE | 2020-10-20 11:32 | NUR ---
Pt has been cooperative and medication compliant. She has been socializing with other patients and wandering through out the unit. She remains hyperverbal and is fixated on calling her loved ones to ask them if she will be discharging today. She stated she was in pain this morning and requested a loratab for leg pain that she rated 6 to 7 out of 10. An hour later she was resting in her bed and stated that her pain was controlled and rated it around a 2. Pt has not had any delusions, behaviors, or agitation at this time
--- NOTE | 2020-10-20 11:32 | PDOC ---
Exam Note: Evangelist Note: This note is a late entry for 10/18/2020 covers elements not covered in my initial note. Subjective: The patient was seen individually in the evening of 10/18/2020 with Monique TEJADA, discussed and reviewed the chart. The patient slept 7 hours previous night. She remains somewhat hyperverbal. This evening she was loud and angry at the nursing staff for unclear reasons. She is able to moderate some of this when I addressed this with her. [place] has been increased, repeat level is awaited on 10/19. Review of Systems: No CV, , pulmonary, eye, ENT system symptoms on review. Mental Status Exam: The patient is reasonably oriented. I met with her in her room. Initially she was loud, somewhat impulsive. We addressed cognitive behavioral ways to help improve impulse control and anxiety when we stabilize her bipolar disorder. Speech coherent, rapid. Abstraction fair. Computation impaired. Language function intact. Attention span short. Mood and affect less anxious. No suicidal or homicidal ideation. Laboratory Data: Reviewed. Impression: Bipolar disorder, manic with psychotic features. Anxiety disorder unspecified. Impulse control disorder unspecified. Plan: Continue current psychotropics. Repeat lithium level awaited. Assessment: Vital Signs/I&O: Vital Signs Date Time Temp Pulse Resp B/P (MAP) Pulse Ox O2 Delivery O2 Flow Rate FiO2 10/20/20 09:51 18 Room Air 10/20/20 06:22 97.7 89 107/75 (86) 96 I & O 10/19/20 10/19/20 10/20/20 14:59 22:59 06:59 Intake Total 840 ml 480 ml Balance 840 ml 480 ml Current Medications: Meds: Current Medications Medications (Trade) Dose Ordered Sig/Jessica Route PRN Reason Start Time Stop Time Status Last Admin Dose Admin Albuterol Sulfate (Ventolin) 1 mg PRN Q6HRS PRN IH FOR ASTHMA 10/08/20 22:30 10/08/20 22:41 DC Amoxicillin/ Clavulanate Potassium (Augmentin 875/ 125mg) 1 tab BID PO 10/09/20 09:00 10/09/20 12:52 DC Aspirin (Mikal Aspirin) 325 mg DAILY PO 10/09/20 09:00 10/20/20 08:53 Buspirone HCl (Buspar) 5 mg BID PO 10/08/20 23:00 10/10/20 21:00 DC 10/10/20 20:27 Ferrous Sulfate (Feosol) 325 mg BIDWMEALS PO 10/09/20 08:00 10/20/20 08:54 Acetaminophen/ Hydrocodone Bitart (Lortab 5/325) 1 tab PRN Q4HRS PRN PO MODERATE TO SEVERE PAIN 10/08/20 22:30 10/20/20 08:53 Levothyroxine Sodium (Synthroid) 25 mcg WEEKLYAC PO 10/15/20 07:00 10/09/20 12:52 DC Melatonin (Melatonin) 3 mg HS PO 10/08/20 21:00 10/19/20 20:20 Montelukast Sodium (Singulair) 10 mg DAILY PO 10/09/20 09:00 10/20/20 08:54 Polyethylene Glycol (miraLAX) 17 gm PRN DAILY PRN PO CONSTIPATION 10/08/20 22:30 10/16/20 08:29 Prednisone (Prednisone) 20 mg DAILY PO 10/09/20 09:00 10/09/20 14:24 DC 10/09/20 08:13 Risperidone (RisperDAL) 0.5 mg QHS PO 10/08/20 23:00 10/16/20 11:24 DC 10/15/20 20:49 Trazodone HCl (Desyrel) 25 mg HS PO 10/08/20 23:00 10/19/20 20:19 Zolpidem Tartrate (Ambien) 5 mg HS PO 10/08/20 23:00 10/19/20 20:19 Non-Formulary Medication (Chlorpheniramine/ Pe/Codeine (Capcof Liquid)) 5 ml PRN Q12HR PRN PO COUGH 10/08/20 22:30 UNV Non-Formulary Medication (Doxycycline Hyclate ) 100 mg BID PO 10/09/20 09:00 10/09/20 12:52 DC Fluticasone Propionate (Flonase) 1 spray DAILY NS 10/09/20 09:00 10/20/20 08:55 Multivitamins/ Calcium (Thera-M Plus) 1 tab DAILY PO 10/09/20 09:00 10/20/20 08:54 Acetaminophen (Tylenol) 650 mg PRN Q6HRS PRN PO MILD PAIN / TEMP > 100.3'F 10/08/20 23:15 10/16/20 08:29 Multi-Ingredient Ointment (Analgesic [place]) 1 gunner PRN QID PRN TP MUSCLE PAIN 10/08/20 23:15 10/19/20 20:20 Al Hydroxide/Mg Hydroxide (Mylanta Plus Xs) 15 ml PRN AFTMEALHC PRN PO DYSPEPSIA 10/08/20 23:15 10/09/20 00:04 DC Magnesium Hydroxide (Milk Of Magnesia) 2,400 mg PRN QHS PRN PO CONSTIPATION 10/08/20 23:15 10/09/20 00:04 DC Albuterol Sulfate (Ventolin) 2.5 mg PRN Q6HRS PRN NEB SHORTNESS OF BREATH 10/09/20 01:30 Cancel Albuterol Sulfate (Ventolin Hfa Inhaler) 1 puff PRN Q6HRS PRN INH SHORTNESS OF BREATH 10/09/20 13:45 10/20/20 06:00 Olanzapine (ZyPREXA ZYDIS) 2.5 mg PRN Q2HR PRN PO PSYCHOSIS 10/09/20 19:45 10/19/20 08:30 Rudd Carbonate 300 mg HS PO 10/09/20 21:00 10/16/20 11:24 DC 10/15/20 20:48 Calcium Carbonate/ Glycine (Tums) 500 mg PRN AFTMEALHC PRN PO INDIGESTION 10/10/20 17:00 UNV Mirtazapine (Remeron) 7.5 mg QHS PO 10/11/20 21:00 10/19/20 20:20 Trazodone HCl (Desyrel) 25 mg PRN QHS PRN PO INSOMNIA, MAY REPEAT X2 10/11/20 20:00 Rudd Carbonate 150 mg DAILY PO 10/13/20 09:00 10/16/20 11:24 DC 10/16/20 08:24 Docusate Sodium (Colace) 100 mg HS PO 10/13/20 20:15 10/19/20 20:18 Rudd Carbonate 300 mg BID PO 10/16/20 21:00 10/20/20 08:54 Risperidone (RisperDAL) 1 mg QHS PO 10/16/20 21:00 10/19/20 20:18 Rudd Carbonate 150 mg 1X ONCE PO 10/16/20 12:00 10/16/20 12:01 DC 10/16/20 12:16 I have reviewed the current psychotropics carefully including drug interactions. Risk benefit ratio favors no change other than as noted in my dictated progress note. Diagnosis: Problems: (1) Impulse control disorder, unspecified (2) Anxiety disorder, unspecified (3) Bipolar disorder, current episode manic severe with psychotic features VARUN CA MD Oct 20, 2020 11:32
--- NOTE | 2020-10-20 11:47 | PDOC ---
Exam Note: Evangelist Note: This note is a late entry for 10/19/2020 covers elements not covered in my initial note. Subjective: The patient was seen individually in the evening of 10/19/2020 with Monique TEJADA, discussed and reviewed the chart. The patient slept 9 hours previous night. Overall she has done well today, less manic, less paranoid, less abrasive. [place] level is 0.8. She has used [place] for pain. Review of Systems: No CV, , pulmonary, eye, ENT system symptoms on review. Mental Status Exam: The patient is reasonably oriented. Speech coherent, rapid at times. Abstraction fair. Computation impaired. Language function intact. Mood and affect somewhat grandiose but improved. Laboratory Data: Reviewed. Impression: Bipolar disorder, manic with psychotic features. Anxiety disorder unspecified. Impulse control disorder unspecified. Plan: Continue current psychotropics. Assessment: Vital Signs/I&O: Vital Signs Date Time Temp Pulse Resp B/P (MAP) Pulse Ox O2 Delivery O2 Flow Rate FiO2 10/20/20 09:51 18 Room Air 10/20/20 06:22 97.7 89 107/75 (86) 96 I & O 10/19/20 10/19/20 10/20/20 15:00 23:00 07:00 Intake Total 840 ml 480 ml Balance 840 ml 480 ml Current Medications: Meds: Current Medications Medications (Trade) Dose Ordered Sig/Jessica Route PRN Reason Start Time Stop Time Status Last Admin Dose Admin Albuterol Sulfate (Ventolin) 1 mg PRN Q6HRS PRN IH FOR ASTHMA 10/08/20 22:30 10/08/20 22:41 DC Amoxicillin/ Clavulanate Potassium (Augmentin 875/ 125mg) 1 tab BID PO 10/09/20 09:00 10/09/20 12:52 DC Aspirin (Mikal Aspirin) 325 mg DAILY PO 10/09/20 09:00 10/20/20 08:53 Buspirone HCl (Buspar) 5 mg BID PO 10/08/20 23:00 10/10/20 21:00 DC 10/10/20 20:27 Ferrous Sulfate (Feosol) 325 mg BIDWMEALS PO 10/09/20 08:00 10/20/20 08:54 Acetaminophen/ Hydrocodone Bitart (Lortab 5/325) 1 tab PRN Q4HRS PRN PO MODERATE TO SEVERE PAIN 10/08/20 22:30 10/20/20 08:53 Levothyroxine Sodium (Synthroid) 25 mcg WEEKLYAC PO 10/15/20 07:00 10/09/20 12:52 DC Melatonin (Melatonin) 3 mg HS PO 10/08/20 21:00 10/19/20 20:20 Montelukast Sodium (Singulair) 10 mg DAILY PO 10/09/20 09:00 10/20/20 08:54 Polyethylene Glycol (miraLAX) 17 gm PRN DAILY PRN PO CONSTIPATION 10/08/20 22:30 10/16/20 08:29 Prednisone (Prednisone) 20 mg DAILY PO 10/09/20 09:00 10/09/20 14:24 DC 10/09/20 08:13 Risperidone (RisperDAL) 0.5 mg QHS PO 10/08/20 23:00 10/16/20 11:24 DC 10/15/20 20:49 Trazodone HCl (Desyrel) 25 mg HS PO 10/08/20 23:00 10/19/20 20:19 Zolpidem Tartrate (Ambien) 5 mg HS PO 10/08/20 23:00 10/19/20 20:19 Non-Formulary Medication (Chlorpheniramine/ Pe/Codeine (Capcof Liquid)) 5 ml PRN Q12HR PRN PO COUGH 10/08/20 22:30 UNV Non-Formulary Medication (Doxycycline Hyclate ) 100 mg BID PO 10/09/20 09:00 10/09/20 12:52 DC Fluticasone Propionate (Flonase) 1 spray DAILY NS 10/09/20 09:00 10/20/20 08:55 Multivitamins/ Calcium (Thera-M Plus) 1 tab DAILY PO 10/09/20 09:00 10/20/20 08:54 Acetaminophen (Tylenol) 650 mg PRN Q6HRS PRN PO MILD PAIN / TEMP > 100.3'F 10/08/20 23:15 10/16/20 08:29 Multi-Ingredient Ointment (Analgesic [place]) 1 gunner PRN QID PRN TP MUSCLE PAIN 10/08/20 23:15 10/19/20 20:20 Al Hydroxide/Mg Hydroxide (Mylanta Plus Xs) 15 ml PRN AFTMEALHC PRN PO DYSPEPSIA 10/08/20 23:15 10/09/20 00:04 DC Magnesium Hydroxide (Milk Of Magnesia) 2,400 mg PRN QHS PRN PO CONSTIPATION 10/08/20 23:15 10/09/20 00:04 DC Albuterol Sulfate (Ventolin) 2.5 mg PRN Q6HRS PRN NEB SHORTNESS OF BREATH 10/09/20 01:30 Cancel Albuterol Sulfate (Ventolin Hfa Inhaler) 1 puff PRN Q6HRS PRN INH SHORTNESS OF BREATH 10/09/20 13:45 10/20/20 06:00 Olanzapine (ZyPREXA ZYDIS) 2.5 mg PRN Q2HR PRN PO PSYCHOSIS 10/09/20 19:45 10/19/20 08:30 [place] Carbonate 300 mg HS PO 10/09/20 21:00 10/16/20 11:24 DC 10/15/20 20:48 Calcium Carbonate/ Glycine (Tums) 500 mg PRN AFTMEALHC PRN PO INDIGESTION 10/10/20 17:00 UNV Mirtazapine (Remeron) 7.5 mg QHS PO 10/11/20 21:00 10/19/20 20:20 Trazodone HCl (Desyrel) 25 mg PRN QHS PRN PO INSOMNIA, MAY REPEAT X2 10/11/20 20:00 [place] Carbonate 150 mg DAILY PO 10/13/20 09:00 10/16/20 11:24 DC 10/16/20 08:24 Docusate Sodium (Colace) 100 mg HS PO 10/13/20 20:15 10/19/20 20:18 [place] Carbonate 300 mg BID PO 10/16/20 21:00 10/20/20 08:54 Risperidone (RisperDAL) 1 mg QHS PO 10/16/20 21:00 10/19/20 20:18 [place] Carbonate 150 mg 1X ONCE PO 10/16/20 12:00 10/16/20 12:01 DC 10/16/20 12:16 I have reviewed the current psychotropics carefully including drug interactions. Risk benefit ratio favors no change other than as noted in my dictated progress note. Diagnosis: Problems: (1) Impulse control disorder, unspecified (2) Anxiety disorder, unspecified (3) Bipolar disorder, current episode manic severe with psychotic features VARUN CA MD Oct 20, 2020 11:47
[2020-10-20 15:45] VITALS: BP 115/63
[2020-10-20] MEDS: MIRTAZAPINE 7.5 MG TABLET. PO SCH (20:44)
[2020-10-20] MEDS: DOCUSATE SODIUM 100 MG CAPSULE PO SCH (20:45)
[2020-10-20] MEDS: traZODone 50 MG TABLET. PO SCH (20:45)
[2020-10-20] MEDS: risperiDONE 1 MG TABLET. PO SCH (20:45)
[2020-10-20] MEDS: MELATONIN 3 MG TABLET PO SCH (20:45)
[2020-10-20] MEDS: ZOLPIDEM 5 MG TABLET. PO SCH (20:48)
--- NOTE | 2020-10-20 21:54 | PDOC ---
Exam Note: Evangelist Note: Please also refer to the separate dictated note~for this date of service dictated separately.~Patient seen individually. Discussed the patient with Nursing staff reviewed the chart.~Reviewed interim history and current functioning. Reviewed vital signs,~Labs/ Radiology~and current medications noted below. Continue current treatment with the changes noted in the dictated addendum note Assessment: Vital Signs/I&O: Vital Signs Date Time Temp Pulse Resp B/P (MAP) Pulse Ox O2 Delivery O2 Flow Rate FiO2 10/20/20 15:45 98.2 84 18 115/63 (80) 94 Room Air I & O 10/19/20 10/19/20 10/20/20 15:00 23:00 07:00 Intake Total 840 ml 480 ml Balance 840 ml 480 ml Current Medications: Meds: Current Medications Medications (Trade) Dose Ordered Sig/Jessica Route PRN Reason Start Time Stop Time Status Last Admin Dose Admin Albuterol Sulfate (Ventolin) 1 mg PRN Q6HRS PRN IH FOR ASTHMA 10/08/20 22:30 10/08/20 22:41 DC Amoxicillin/ Clavulanate Potassium (Augmentin 875/ 125mg) 1 tab BID PO 10/09/20 09:00 10/09/20 12:52 DC Aspirin (Mikal Aspirin) 325 mg DAILY PO 10/09/20 09:00 10/20/20 08:53 Buspirone HCl (Buspar) 5 mg BID PO 10/08/20 23:00 10/10/20 21:00 DC 10/10/20 20:27 Ferrous Sulfate (Feosol) 325 mg BIDWMEALS PO 10/09/20 08:00 10/20/20 17:11 Acetaminophen/ Hydrocodone Bitart (Lortab 5/325) 1 tab PRN Q4HRS PRN PO MODERATE TO SEVERE PAIN 10/08/20 22:30 10/20/20 08:53 Levothyroxine Sodium (Synthroid) 25 mcg WEEKLYAC PO 10/15/20 07:00 10/09/20 12:52 DC Melatonin (Melatonin) 3 mg HS PO 10/08/20 21:00 10/20/20 20:45 Montelukast Sodium (Singulair) 10 mg DAILY PO 10/09/20 09:00 10/20/20 08:54 Polyethylene Glycol (miraLAX) 17 gm PRN DAILY PRN PO CONSTIPATION 10/08/20 22:30 10/16/20 08:29 Prednisone (Prednisone) 20 mg DAILY PO 10/09/20 09:00 10/09/20 14:24 DC 10/09/20 08:13 Risperidone (RisperDAL) 0.5 mg QHS PO 10/08/20 23:00 10/16/20 11:24 DC 10/15/20 20:49 Trazodone HCl (Desyrel) 25 mg HS PO 10/08/20 23:00 10/20/20 20:45 Zolpidem Tartrate (Ambien) 5 mg HS PO 10/08/20 23:00 10/20/20 20:48 Non-Formulary Medication (Chlorpheniramine/ Pe/Codeine (Capcof Liquid)) 5 ml PRN Q12HR PRN PO COUGH 10/08/20 22:30 UNV Non-Formulary Medication (Doxycycline Hyclate ) 100 mg BID PO 10/09/20 09:00 10/09/20 12:52 DC Fluticasone Propionate (Flonase) 1 spray DAILY NS 10/09/20 09:00 10/20/20 08:55 Multivitamins/ Calcium (Thera-M Plus) 1 tab DAILY PO 10/09/20 09:00 10/20/20 08:54 Acetaminophen (Tylenol) 650 mg PRN Q6HRS PRN PO MILD PAIN / TEMP > 100.3'F 10/08/20 23:15 10/16/20 08:29 Multi-Ingredient Ointment (Analgesic [place]) 1 gunner PRN QID PRN TP MUSCLE PAIN 10/08/20 23:15 10/19/20 20:20 Al Hydroxide/Mg Hydroxide (Mylanta Plus Xs) 15 ml PRN AFTMEALHC PRN PO DYSPEPSIA 10/08/20 23:15 10/09/20 00:04 DC Magnesium Hydroxide (Milk Of Magnesia) 2,400 mg PRN QHS PRN PO CONSTIPATION 10/08/20 23:15 10/09/20 00:04 DC Albuterol Sulfate (Ventolin) 2.5 mg PRN Q6HRS PRN NEB SHORTNESS OF BREATH 10/09/20 01:30 Cancel Albuterol Sulfate (Ventolin Hfa Inhaler) 1 puff PRN Q6HRS PRN INH SHORTNESS OF BREATH 10/09/20 13:45 10/20/20 06:00 Olanzapine (ZyPREXA ZYDIS) 2.5 mg PRN Q2HR PRN PO PSYCHOSIS 10/09/20 19:45 10/19/20 08:30 [place] Carbonate 300 mg HS PO 10/09/20 21:00 10/16/20 11:24 DC 10/15/20 20:48 Calcium Carbonate/ Glycine (Tums) 500 mg PRN AFTMEALHC PRN PO INDIGESTION 10/10/20 17:00 UNV Mirtazapine (Remeron) 7.5 mg QHS PO 10/11/20 21:00 10/20/20 20:44 Trazodone HCl (Desyrel) 25 mg PRN QHS PRN PO INSOMNIA, MAY REPEAT X2 10/11/20 20:00 [place] Carbonate 150 mg DAILY PO 10/13/20 09:00 10/16/20 11:24 DC 10/16/20 08:24 Docusate Sodium (Colace) 100 mg HS PO 10/13/20 20:15 10/20/20 20:45 [place] Carbonate 300 mg BID PO 10/16/20 21:00 10/20/20 20:45 Risperidone (RisperDAL) 1 mg QHS PO 10/16/20 21:00 10/20/20 20:45 [place] Carbonate 150 mg 1X ONCE PO 10/16/20 12:00 10/16/20 12:01 DC 10/16/20 12:16 I have reviewed the current psychotropics carefully including drug interactions. Risk benefit ratio favors no change other than as noted in my dictated progress note. Diagnosis: Problems: (1) Impulse control disorder, unspecified (2) Anxiety disorder, unspecified (3) Bipolar disorder, current episode manic severe with psychotic features VARUN CA MD Oct 20, 2020 21:54
--- NOTE | 2020-10-20 23:14 | NUR ---
Nursing Note Pt in her room isolative this pm. States she has had a horrible day, it was exhausting and irritating. Now is resting well denies complaints.
[2020-10-21 06:08] VITALS: BP 127/78
[2020-10-21] MEDS: METHYL SALICYLATE/MENTHOL TOPICAL OINTMENT 57GM TUBE. TP PRN (07:30)
[2020-10-21] MEDS: LITHIUM CARBONATE 300 MG TABLET PO SCH ×2 (08:31→20:35)
[2020-10-21] MEDS: FERROUS SULFATE 325 MG TABLET. PO SCH ×2 (08:31→17:25)
[2020-10-21] MEDS: ASPIRIN 325 MG TABLET PO SCH (08:31)
[2020-10-21] MEDS: MULTIVITAMIN with MINERAL TABLET. PO SCH (08:31)
[2020-10-21] MEDS: FLUTICASONE 50MCG/NASAL SPRAY 16GM BOTTLE. NS SCH (08:31)
[2020-10-21] MEDS: MONTELUKAST 10 MG TABLET. PO SCH (08:31)
[2020-10-21] MEDS: HYDROcodone/APAP 5/325MG 1 TAB TABLET PO PRN (08:34)
--- NOTE | 2020-10-21 13:43 | NUR ---
CORNELIO attempted to contact pt son Cruz and was not able to leave a message as his voice mailbox is not set up. CORNELIO will try back at a later time.
--- NOTE | 2020-10-21 15:14 | NUR ---
CORNELIO attempted to contact pt son Cruz and was not able to leave a message as his voicemail has not been set up. CORNELIO to try back at a later time.
[2020-10-21 16:12] VITALS: BP 109/71
--- NOTE | 2020-10-21 17:34 | NUR ---
Nsg note; Valeri has been demanding today, repeatedly asking to use the phone. she was able to speak to one family member but her son did not answer two calls. She is anxious about discharge and told other patients that she will be discharging home next weekend, though there are no plans for her to discharge at this time. she is med compliant
[2020-10-21] MEDS: DOCUSATE SODIUM 100 MG CAPSULE PO SCH (20:35)
[2020-10-21] MEDS: MIRTAZAPINE 7.5 MG TABLET. PO SCH (20:35)
[2020-10-21] MEDS: MELATONIN 3 MG TABLET PO SCH (20:35)
[2020-10-21] MEDS: ZOLPIDEM 5 MG TABLET. PO SCH (20:35)
[2020-10-21] MEDS: risperiDONE 1 MG TABLET. PO SCH (20:35)
[2020-10-21] MEDS: traZODone 50 MG TABLET. PO SCH (20:35)
--- NOTE | 2020-10-21 22:39 | PDOC ---
Exam Note: Evangelist Note: Please also refer to the separate dictated note~for this date of service dictated separately.~Patient seen individually. Discussed the patient with Nursing staff reviewed the chart.~Reviewed interim history and current functioning. Reviewed vital signs,~Labs/ Radiology~and current medications noted below. Continue current treatment with the changes noted in the dictated addendum note Assessment: Vital Signs/I&O: Vital Signs Date Time Temp Pulse Resp B/P (MAP) Pulse Ox O2 Delivery O2 Flow Rate FiO2 10/21/20 16:12 97.7 70 18 109/71 (84) 97 Room Air I & O 10/20/20 10/20/20 10/21/20 15:00 23:00 07:00 Intake Total 600 ml 240 ml Balance 600 ml 240 ml Current Medications: Meds: Current Medications Medications (Trade) Dose Ordered Sig/Jessica Route PRN Reason Start Time Stop Time Status Last Admin Dose Admin Albuterol Sulfate (Ventolin) 1 mg PRN Q6HRS PRN IH FOR ASTHMA 10/08/20 22:30 10/08/20 22:41 DC Amoxicillin/ Clavulanate Potassium (Augmentin 875/ 125mg) 1 tab BID PO 10/09/20 09:00 10/09/20 12:52 DC Aspirin (Mikal Aspirin) 325 mg DAILY PO 10/09/20 09:00 10/21/20 08:31 Buspirone HCl (Buspar) 5 mg BID PO 10/08/20 23:00 10/10/20 21:00 DC 10/10/20 20:27 Ferrous Sulfate (Feosol) 325 mg BIDWMEALS PO 10/09/20 08:00 10/21/20 17:25 Acetaminophen/ Hydrocodone Bitart (Lortab 5/325) 1 tab PRN Q4HRS PRN PO MODERATE TO SEVERE PAIN 10/08/20 22:30 10/21/20 08:34 Levothyroxine Sodium (Synthroid) 25 mcg WEEKLYAC PO 10/15/20 07:00 10/09/20 12:52 DC Melatonin (Melatonin) 3 mg HS PO 10/08/20 21:00 10/21/20 20:35 Montelukast Sodium (Singulair) 10 mg DAILY PO 10/09/20 09:00 10/21/20 08:31 Polyethylene Glycol (miraLAX) 17 gm PRN DAILY PRN PO CONSTIPATION 10/08/20 22:30 10/16/20 08:29 Prednisone (Prednisone) 20 mg DAILY PO 10/09/20 09:00 10/09/20 14:24 DC 10/09/20 08:13 Risperidone (RisperDAL) 0.5 mg QHS PO 10/08/20 23:00 10/16/20 11:24 DC 10/15/20 20:49 Trazodone HCl (Desyrel) 25 mg HS PO 10/08/20 23:00 10/21/20 20:35 Zolpidem Tartrate (Ambien) 5 mg HS PO 10/08/20 23:00 10/21/20 20:35 Non-Formulary Medication (Chlorpheniramine/ Pe/Codeine (Capcof Liquid)) 5 ml PRN Q12HR PRN PO COUGH 10/08/20 22:30 UNV Non-Formulary Medication (Doxycycline Hyclate ) 100 mg BID PO 10/09/20 09:00 10/09/20 12:52 DC Fluticasone Propionate (Flonase) 1 spray DAILY NS 10/09/20 09:00 10/21/20 08:31 Multivitamins/ Calcium (Thera-M Plus) 1 tab DAILY PO 10/09/20 09:00 10/21/20 08:31 Acetaminophen (Tylenol) 650 mg PRN Q6HRS PRN PO MILD PAIN / TEMP > 100.3'F 10/08/20 23:15 10/16/20 08:29 Multi-Ingredient Ointment (Analgesic [place]) 1 gunner PRN QID PRN TP MUSCLE PAIN 10/08/20 23:15 10/21/20 07:30 Al Hydroxide/Mg Hydroxide (Mylanta Plus Xs) 15 ml PRN AFTMEALHC PRN PO DYSPEPSIA 10/08/20 23:15 10/09/20 00:04 DC Magnesium Hydroxide (Milk Of Magnesia) 2,400 mg PRN QHS PRN PO CONSTIPATION 10/08/20 23:15 10/09/20 00:04 DC Albuterol Sulfate (Ventolin) 2.5 mg PRN Q6HRS PRN NEB SHORTNESS OF BREATH 10/09/20 01:30 Cancel Albuterol Sulfate (Ventolin Hfa Inhaler) 1 puff PRN Q6HRS PRN INH SHORTNESS OF BREATH 10/09/20 13:45 10/20/20 06:00 Olanzapine (ZyPREXA ZYDIS) 2.5 mg PRN Q2HR PRN PO PSYCHOSIS 10/09/20 19:45 10/19/20 08:30 [place] Carbonate 300 mg HS PO 10/09/20 21:00 10/16/20 11:24 DC 10/15/20 20:48 Calcium Carbonate/ Glycine (Tums) 500 mg PRN AFTMEALHC PRN PO INDIGESTION 10/10/20 17:00 UNV Mirtazapine (Remeron) 7.5 mg QHS PO 10/11/20 21:00 10/21/20 20:35 Trazodone HCl (Desyrel) 25 mg PRN QHS PRN PO INSOMNIA, MAY REPEAT X2 10/11/20 20:00 [place] Carbonate 150 mg DAILY PO 10/13/20 09:00 10/16/20 11:24 DC 10/16/20 08:24 Docusate Sodium (Colace) 100 mg HS PO 10/13/20 20:15 10/21/20 20:35 [place] Carbonate 300 mg BID PO 10/16/20 21:00 10/21/20 20:35 Risperidone (RisperDAL) 1 mg QHS PO 10/16/20 21:00 10/21/20 20:35 [place] Carbonate 150 mg 1X ONCE PO 10/16/20 12:00 10/16/20 12:01 DC 10/16/20 12:16 I have reviewed the current psychotropics carefully including drug interactions. Risk benefit ratio favors no change other than as noted in my dictated progress note. Diagnosis: Problems: (1) Impulse control disorder, unspecified (2) Anxiety disorder, unspecified (3) Bipolar disorder, current episode manic severe with psychotic features VARUN CA MD Oct 21, 2020 22:39
--- NOTE | 2020-10-22 00:01 | NUR ---
Nursing Note Pt isolates to room, med compliant and cooperative. States she is ready to discharge. No behaviors otherwise.
[2020-10-22 06:09] VITALS: BP 109/70
[2020-10-22] MEDS: MULTIVITAMIN with MINERAL TABLET. PO SCH (08:15)
[2020-10-22] MEDS: MONTELUKAST 10 MG TABLET. PO SCH (08:15)
[2020-10-22] MEDS: FLUTICASONE 50MCG/NASAL SPRAY 16GM BOTTLE. NS SCH (08:16)
[2020-10-22] MEDS: LITHIUM CARBONATE 300 MG TABLET PO SCH ×2 (08:16→14:00)
[2020-10-22] MEDS: ASPIRIN 325 MG TABLET PO SCH (08:16)
[2020-10-22] MEDS: FERROUS SULFATE 325 MG TABLET. PO SCH ×2 (08:16→17:17)
--- NOTE | 2020-10-22 11:45 | NUR ---
CORNELIO contacted pt son, Cruz, to let him know last covered day for Medicaid is . SW gave Cruz an update on how pt is doing and mentioned her being less intrusive and more cooperative. Pt does get upset when she cannot have things or request things that are not feasible for a hospital setting. Pt son reports that he gets off work around 1500 and should be able to head up this way. CORNELIO requested that he call once he heads down this way to give nursing a heads up. CORNELIO made appointments for pt with [facility] and it is requested that pt have services that come check in on her a couple times a week to ensure she is in fact taking her medications appropriately. Cruz questioned if there is any paperwork that CORNELIO can give them re: getting pt new identity cards as she has lost them. He knows she may have to go to the DMV but is hopefully there are other avenues as that takes time. He has checked with [facility] and they do not have her cards and they are not in her purse which the family currently has. CORNELIO will follow-up and let Cruz know.
--- NOTE | 2020-10-22 12:22 | NUR ---
Nsg Note; Valeri was pleased her son answered the phone this am and had a long conversation with her. She is eager for discharge and talked to him about that. she is med compliant and calm. She had been hyperverbal this am but has quieted down since mid morning
--- NOTE | 2020-10-22 13:13 | NUR ---
[facility] Social Work Discharge Planning Form Patient Name VALERI ADAME Admit Date: 08 October 2020 DISCHARGE PLAN Discharge Destination: Pt to discharge home with her niece. Care Assessment: N/A Level II Assessment: N/A Transportation: Pt son to pick pt up. He gets off work at 1500; will plan to call once heading this direction from [place], [place]. Special Instructions/Notes: Please fax the discharge orders/notes, discharge medication and discharge summary to the fax number(s) listed below. DISCHARGE TO HOME: Address: unknown address; lives with niece in [place], [place]. Responsible Libertarian: Cruz Mclaughlin Pharmacy: [facility] Contact Information: [address] , [place] [address] Psychiatrist/Mental Health Follow Up: DADA Roca @ [facility] Contact Information: Chanell Gonzalez; [place] [address] Robbin Walker is the medical case worker at [facility] Caregiver Services: Referral to Medicaid was made to have pt qualify for caregiver services. This will allow up to 100 hours per week for a REPEAT CHIEF/CMT to provide services with/for Valeri (e.g. rides to appointments, to the store, set up meds, etc).
[2020-10-22 16:35] VITALS: BP 121/77
[2020-10-22] MEDS: DOCUSATE SODIUM 100 MG CAPSULE PO SCH (19:53)
[2020-10-22] MEDS: MELATONIN 3 MG TABLET PO SCH (19:53)
[2020-10-22] MEDS: MIRTAZAPINE 7.5 MG TABLET. PO SCH (19:53)
[2020-10-22] MEDS: traZODone 50 MG TABLET. PO SCH (19:53)
[2020-10-22] MEDS: ZOLPIDEM 5 MG TABLET. PO SCH (19:54)
[2020-10-22] MEDS: risperiDONE 1 MG TABLET. PO SCH (19:54)
--- NOTE | 2020-10-22 22:36 | PDOC ---
Exam Note: Evangelist Note: This note is a late entry for 10/20/2020 covers elements not covered in my initial note. Subjective: The patient was seen individually in the evening of 10/20/2020 with Mery TEJADA, discussed and reviewed the chart. The patient slept 7-3/4 hours previous night. Overall she remains somewhat hypomanic but less so than before, less impulsive. She was quite abusive with her son over the phone because she is wanting to be discharged and he is wanting her to be stabilized fully before being discharged. I addressed this with the patient at some length in her room. Review of Systems: No CV, , pulmonary, eye, ENT system symptoms on review. Mental Status Exam: The patient is reasonably oriented. Speech coherent, rapid at times. Abstraction fair. Computation impaired. Language function intact. Mood and affect somewhat improved. Laboratory Data: Reviewed. Impression: Bipolar disorder, manic with psychotic features. Anxiety disorder unspecified. Impulse control disorder unspecified. Plan: Continue current psychotropics. Assessment: Vital Signs/I&O: Vital Signs Date Time Temp Pulse Resp B/P (MAP) Pulse Ox O2 Delivery O2 Flow Rate FiO2 10/22/20 16:35 98.6 77 20 121/77 (92) 97 10/22/20 06:09 Room Air I & O 10/21/20 10/21/20 10/22/20 15:00 23:00 07:00 Intake Total 1080 ml 240 ml 240 ml Balance 1080 ml 240 ml 240 ml Labs: Laboratory Tests Test 10/22/20 07:52 [place] Level 0.7 mmol/L (0.6-1.2) [place] Last Dose Date 10/21/20 [place] Last Dose Time 2100 Current Medications: Meds: Laboratory Tests Test 10/22/20 07:52 [place] Level 0.7 mmol/L [place] Last Dose Date 10/21/20 [place] Last Dose Time 2100 Current Medications Medications (Trade) Dose Ordered Sig/Jessica Route PRN Reason Start Time Stop Time Status Last Admin Dose Admin Albuterol Sulfate (Ventolin) 1 mg PRN Q6HRS PRN IH FOR ASTHMA 10/08/20 22:30 10/08/20 22:41 DC Amoxicillin/ Clavulanate Potassium (Augmentin 875/ 125mg) 1 tab BID PO 10/09/20 09:00 10/09/20 12:52 DC Aspirin (Mikal Aspirin) 325 mg DAILY PO 10/09/20 09:00 10/22/20 08:16 Buspirone HCl (Buspar) 5 mg BID PO 10/08/20 23:00 10/10/20 21:00 DC 10/10/20 20:27 Ferrous Sulfate (Feosol) 325 mg BIDWMEALS PO 10/09/20 08:00 10/22/20 17:17 Acetaminophen/ Hydrocodone Bitart (Lortab 5/325) 1 tab PRN Q4HRS PRN PO MODERATE TO SEVERE PAIN 10/08/20 22:30 10/21/20 08:34 Levothyroxine Sodium (Synthroid) 25 mcg WEEKLYAC PO 10/15/20 07:00 10/09/20 12:52 DC Melatonin (Melatonin) 3 mg HS PO 10/08/20 21:00 10/22/20 19:53 Montelukast Sodium (Singulair) 10 mg DAILY PO 10/09/20 09:00 10/22/20 08:15 Polyethylene Glycol (miraLAX) 17 gm PRN DAILY PRN PO CONSTIPATION 10/08/20 22:30 10/16/20 08:29 Prednisone (Prednisone) 20 mg DAILY PO 10/09/20 09:00 10/09/20 14:24 DC 10/09/20 08:13 Risperidone (RisperDAL) 0.5 mg QHS PO 10/08/20 23:00 10/16/20 11:24 DC 10/15/20 20:49 Trazodone HCl (Desyrel) 25 mg HS PO 10/08/20 23:00 10/22/20 19:53 Zolpidem Tartrate (Ambien) 5 mg HS PO 10/08/20 23:00 10/22/20 19:54 Non-Formulary Medication (Chlorpheniramine/ Pe/Codeine (Capcof Liquid)) 5 ml PRN Q12HR PRN PO COUGH 10/08/20 22:30 UNV Non-Formulary Medication (Doxycycline Hyclate ) 100 mg BID PO 10/09/20 09:00 10/09/20 12:52 DC Fluticasone Propionate (Flonase) 1 spray DAILY NS 10/09/20 09:00 10/22/20 08:16 Multivitamins/ Calcium (Thera-M Plus) 1 tab DAILY PO 10/09/20 09:00 10/22/20 08:15 Acetaminophen (Tylenol) 650 mg PRN Q6HRS PRN PO MILD PAIN / TEMP > 100.3'F 10/08/20 23:15 10/16/20 08:29 Multi-Ingredient Ointment (Analgesic [place]) 1 gunner PRN QID PRN TP MUSCLE PAIN 10/08/20 23:15 10/21/20 07:30 Al Hydroxide/Mg Hydroxide (Mylanta Plus Xs) 15 ml PRN AFTMEALHC PRN PO DYSPEPSIA 10/08/20 23:15 10/09/20 00:04 DC Magnesium Hydroxide (Milk Of Magnesia) 2,400 mg PRN QHS PRN PO CONSTIPATION 10/08/20 23:15 10/09/20 00:04 DC Albuterol Sulfate (Ventolin) 2.5 mg PRN Q6HRS PRN NEB SHORTNESS OF BREATH 10/09/20 01:30 Cancel Albuterol Sulfate (Ventolin Hfa Inhaler) 1 puff PRN Q6HRS PRN INH SHORTNESS OF BREATH 10/09/20 13:45 10/20/20 06:00 Olanzapine (ZyPREXA ZYDIS) 2.5 mg PRN Q2HR PRN PO PSYCHOSIS 10/09/20 19:45 10/19/20 08:30 [place] Carbonate 300 mg HS PO 10/09/20 21:00 10/16/20 11:24 DC 10/15/20 20:48 Calcium Carbonate/ Glycine (Tums) 500 mg PRN AFTMEALHC PRN PO INDIGESTION 10/10/20 17:00 UNV Mirtazapine (Remeron) 7.5 mg QHS PO 10/11/20 21:00 10/22/20 19:53 Trazodone HCl (Desyrel) 25 mg PRN QHS PRN PO INSOMNIA, MAY REPEAT X2 10/11/20 20:00 [place] Carbonate 150 mg DAILY PO 10/13/20 09:00 10/16/20 11:24 DC 10/16/20 08:24 Docusate Sodium (Colace) 100 mg HS PO 10/13/20 20:15 10/22/20 19:53 [place] Carbonate 300 mg BID PO 9/9/21 21:00 10/22/20 14:00 Risperidone (RisperDAL) 1 mg QHS PO 10/16/20 21:00 10/22/20 19:54 [place] Carbonate 150 mg 1X ONCE PO 10/16/20 12:00 10/16/20 12:01 DC 10/16/20 12:16 I have reviewed the current psychotropics carefully including drug interactions. Risk benefit ratio favors no change other than as noted in my dictated progress note. Diagnosis: Problems: (1) Impulse control disorder, unspecified (2) Anxiety disorder, unspecified (3) Bipolar disorder, current episode manic severe with psychotic features VARUN CA MD Oct 22, 2020 22:35
--- NOTE | 2020-10-22 22:36 | PDOC ---
Exam Note: Evangelist Note: Please also refer to the separate dictated note~for this date of service dictated separately.~Patient seen individually. Discussed the patient with Nursing staff reviewed the chart.~Reviewed interim history and current functioning. Reviewed vital signs,~Labs/ Radiology~and current medications noted below. Continue current treatment with the changes noted in the dictated addendum note Assessment: Vital Signs/I&O: Vital Signs Date Time Temp Pulse Resp B/P (MAP) Pulse Ox O2 Delivery O2 Flow Rate FiO2 10/22/20 16:35 98.6 77 20 121/77 (92) 97 10/22/20 06:09 Room Air I & O 10/21/20 10/21/20 10/22/20 15:00 23:00 07:00 Intake Total 1080 ml 240 ml 240 ml Balance 1080 ml 240 ml 240 ml Labs: Laboratory Tests Test 10/22/20 07:52 [place] Level 0.7 mmol/L (0.6-1.2) [place] Last Dose Date 10/21/20 [place] Last Dose Time 2100 Current Medications: I have reviewed the current psychotropics carefully including drug interactions. Risk benefit ratio favors no change other than as noted in my dictated progress note. Diagnosis: Problems: (1) Impulse control disorder, unspecified (2) Anxiety disorder, unspecified (3) Bipolar disorder, current episode manic severe with psychotic features VARUN CA MD Oct 22, 2020 22:36
[2020-10-22] MEDS ORDERED: ACET325T21 PO (23:24)
[2020-10-22] MEDS ORDERED: DOCU100C28 PO (23:25)
[2020-10-22] MEDS ORDERED: LITH300C PO (23:27)
[2020-10-22] MEDS ORDERED: TROL86CR TP (23:29)
[2020-10-22] MEDS ORDERED: MIRT7.5T8 PO (23:29)
[2020-10-22] MEDS ORDERED: TRAZ-120 PO (23:34)
--- NOTE | 2020-10-23 00:32 | NUR ---
LAst evening pt was med compliant and cooperative with staff. She is looking forward to discharge and has had no behaviors.
[2020-10-23 06:27] VITALS: BP 112/62
--- NOTE | 2020-10-23 06:51 | PDOC ---
Exam Note: Evangelist Note: This note is a late entry for 10/21/2020 covers elements not covered in my initial note. Subjective: The patient was seen individually in the evening of 10/21/2020 with Mery TEJADA, discussed and reviewed the chart. The patient slept 9-1/2 hours previous night. She is less intrusive. We will check lithium level in the morning, less manic, less hyperverbal. Review of Systems: No CV, , pulmonary, eye, ENT system symptoms on review. Mental Status Exam: The patient is reasonably oriented. I met with her in her room. Speech coherent. Abstraction fair. Computation impaired. Language function intact. Mood and affect improved. Laboratory Data: Reviewed. Impression: Bipolar disorder, manic with psychotic features. Anxiety disorder unspecified. Impulse control disorder unspecified. Plan: Continue current psychotropics. Assessment: Vital Signs/I&O: Vital Signs Date Time Temp Pulse Resp B/P (MAP) Pulse Ox O2 Delivery O2 Flow Rate FiO2 10/23/20 06:27 98.6 69 17 112/62 (79) 97 Room Air I & O 10/22/20 10/22/20 10/23/20 15:00 23:00 07:00 Intake Total 1010 ml 420 ml Balance 1010 ml 420 ml Labs: Laboratory Tests Test 10/22/20 07:52 [place] Level 0.7 mmol/L (0.6-1.2) [place] Last Dose Date 10/21/20 [place] Last Dose Time 2100 Current Medications: Meds: Laboratory Tests Test 10/22/20 07:52 [place] Level 0.7 mmol/L [place] Last Dose Date 10/21/20 [place] Last Dose Time 2100 Current Medications Medications (Trade) Dose Ordered Sig/Jessica Route PRN Reason Start Time Stop Time Status Last Admin Dose Admin Albuterol Sulfate (Ventolin) 1 mg PRN Q6HRS PRN IH FOR ASTHMA 10/08/20 22:30 10/08/20 22:41 DC Amoxicillin/ Clavulanate Potassium (Augmentin 875/ 125mg) 1 tab BID PO 10/09/20 09:00 10/09/20 12:52 DC Aspirin (Mikal Aspirin) 325 mg DAILY PO 10/09/20 09:00 10/22/20 08:16 Buspirone HCl (Buspar) 5 mg BID PO 10/08/20 23:00 10/10/20:00 DC 10/10/20 20:27 Ferrous Sulfate (Feosol) 325 mg BIDWMEALS PO 10/09/20 08:00 10/22/20 17:17 Acetaminophen/ Hydrocodone Bitart (Lortab 5/325) 1 tab PRN Q4HRS PRN PO MODERATE TO SEVERE PAIN 10/08/20 22:30 10/21/20 08:34 Levothyroxine Sodium (Synthroid) 25 mcg WEEKLYAC PO 10/15/20 07:00 10/09/20 12:52 DC Melatonin (Melatonin) 3 mg HS PO 10/08/20 21:00 10/22/20 19:53 Montelukast Sodium (Singulair) 10 mg DAILY PO 10/09/20 09:00 10/22/20 08:15 Polyethylene Glycol (miraLAX) 17 gm PRN DAILY PRN PO CONSTIPATION 10/08/20 22:30 10/16/20 08:29 Prednisone (Prednisone) 20 mg DAILY PO 10/09/20 09:00 10/09/20 14:24 DC 10/09/20 08:13 Risperidone (RisperDAL) 0.5 mg QHS PO 10/08/20 23:00 10/16/20 11:24 DC 10/15/20 20:49 Trazodone HCl (Desyrel) 25 mg HS PO 10/08/20 23:00 10/22/20 19:53 Zolpidem Tartrate (Ambien) 5 mg HS PO 10/08/20 23:00 10/22/20 19:54 Non-Formulary Medication (Chlorpheniramine/ Pe/Codeine (Capcof Liquid)) 5 ml PRN Q12HR PRN PO COUGH 10/08/20 22:30 UNV Non-Formulary Medication (Doxycycline Hyclate ) 100 mg BID PO 10/09/20 09:00 10/09/20 12:52 DC Fluticasone Propionate (Flonase) 1 spray DAILY NS 10/09/20 09:00 10/22/20 08:16 Multivitamins/ Calcium (Thera-M Plus) 1 tab DAILY PO 10/09/20 09:00 10/22/20 08:15 Acetaminophen (Tylenol) 650 mg PRN Q6HRS PRN PO MILD PAIN / TEMP > 100.3'F 10/08/20 23:15 10/16/20 08:29 Multi-Ingredient Ointment (Analgesic [place]) 1 gunner PRN QID PRN TP MUSCLE PAIN 10/08/20 23:15 10/21/20 07:30 Al Hydroxide/Mg Hydroxide (Mylanta Plus Xs) 15 ml PRN AFTMEALHC PRN PO DYSPEPSIA 10/08/20 23:15 10/09/20 00:04 DC Magnesium Hydroxide (Milk Of Magnesia) 2,400 mg PRN QHS PRN PO CONSTIPATION 10/08/20 23:15 10/09/20 00:04 DC Albuterol Sulfate (Ventolin) 2.5 mg PRN Q6HRS PRN NEB SHORTNESS OF BREATH 10/09/20 01:30 Cancel Albuterol Sulfate (Ventolin Hfa Inhaler) 1 puff PRN Q6HRS PRN INH SHORTNESS OF BREATH 10/09/20 13:45 10/20/20 06:00 Olanzapine (ZyPREXA ZYDIS) 2.5 mg PRN Q2HR PRN PO PSYCHOSIS 10/09/20 19:45 10/19/20 08:30 [place] Carbonate 300 mg HS PO 10/09/20 21:00 10/16/20 11:24 DC 10/15/20 20:48 Calcium Carbonate/ Glycine (Tums) 500 mg PRN AFTMEALHC PRN PO INDIGESTION 10/10/20 17:00 UNV Mirtazapine (Remeron) 7.5 mg QHS PO 10/11/20 21:00 10/22/20 19:53 Trazodone HCl (Desyrel) 25 mg PRN QHS PRN PO INSOMNIA, MAY REPEAT X2 10/11/20 20:00 [place] Carbonate 150 mg DAILY PO 10/13/20 09:00 10/16/20 11:24 DC 10/16/20 08:24 Docusate Sodium (Colace) 100 mg HS PO 10/13/20 20:15 10/22/20 19:53 [place] Carbonate 300 mg BID PO 10/16/20 21:00 10/22/20 14:00 Risperidone (RisperDAL) 1 mg QHS PO 10/16/20 21:00 10/22/20 19:54 [place] Carbonate 150 mg 1X ONCE PO 10/16/20 12:00 10/16/20 12:01 DC 10/16/20 12:16 I have reviewed the current psychotropics carefully including drug interactions. Risk benefit ratio favors no change other than as noted in my dictated progress note. Diagnosis: Problems: (1) Impulse control disorder, unspecified (2) Anxiety disorder, unspecified (3) Bipolar disorder, current episode manic severe with psychotic features VARUN CA MD Oct 23, 2020 06:51
[2020-10-23] MEDS: FERROUS SULFATE 325 MG TABLET. PO SCH (08:29)
[2020-10-23] MEDS: ASPIRIN 325 MG TABLET PO SCH (08:29)
[2020-10-23] MEDS: MONTELUKAST 10 MG TABLET. PO SCH (08:30)
[2020-10-23] MEDS: FLUTICASONE 50MCG/NASAL SPRAY 16GM BOTTLE. NS SCH (08:30)
[2020-10-23] MEDS: MULTIVITAMIN with MINERAL TABLET. PO SCH (08:30)
[2020-10-23] MEDS: LITHIUM CARBONATE 300 MG TABLET PO SCH (08:30)
[2020-10-23] MEDS ORDERED: OLAN5TAB67 PO (12:11)
[2020-10-23 16:37] VITALS: BP 129/73
--- NOTE | 2020-10-23 17:00 | NUR ---
Transition Record was faxed to follow-up provider with the following elements: Reason for admission, procedures, tests, principal diagnosis, pending studies, patient instructions, 30/08 contact information for unit, phone number to obtain pending test results, plan for follow-up care, physician follow-up, advanced directive information, and medication list with dose, duration and instructions. This information was included in the following documents: History and physical, lab results, study results, progress notes, social work planning form, DC instruction form, patient visit summary, and medication reconciliation form. Date & time record faxed: 10/23/20 @ 1524 Record faxed to: Chanelle GARLAND @ [facility] [phone] Record discussed with/ report given to: Cruz Mclaughlin, Pt's son/FARNAZ
--- NOTE | 2020-10-23 22:17 | PDOC ---
Exam Note: Evangelist Note: Please also refer to the separate dictated note~for this date of service dictated separately.~Patient seen individually. Discussed the patient with Nursing staff reviewed the chart.~Reviewed interim history and current functioning. Reviewed vital signs,~Labs/ Radiology~and current medications noted below. Continue current treatment with the changes noted in the dictated addendum note Assessment: Vital Signs/I&O: Vital Signs Date Time Temp Pulse Resp B/P (MAP) Pulse Ox O2 Delivery O2 Flow Rate FiO2 10/23/20 16:37 98.3 80 18 129/73 (91) 94 10/23/20 06:27 Room Air I & O 10/22/20 10/22/20 10/23/20 15:00 23:00 07:00 Intake Total 1010 ml 420 ml Balance 1010 ml 420 ml Current Medications: Meds: Current Medications Medications (Trade) Dose Ordered Sig/Jessica Route PRN Reason Start Time Stop Time Status Last Admin Dose Admin Albuterol Sulfate (Ventolin) 1 mg PRN Q6HRS PRN IH FOR ASTHMA 10/08/20 22:30 10/08/20 22:41 DC Amoxicillin/ Clavulanate Potassium (Augmentin 875/ 125mg) 1 tab BID PO 10/09/20 09:00 10/09/20 12:52 DC Aspirin (Mikal Aspirin) 325 mg DAILY PO 10/09/20 09:00 10/23/20 17:45 DC 10/23/20 08:29 Buspirone HCl (Buspar) 5 mg BID PO 10/08/20 23:00 10/10/20 21:00 DC 10/10/20 20:27 Ferrous Sulfate (Feosol) 325 mg BIDWMEALS PO 10/09/20 08:00 10/23/20 17:45 DC 10/23/20 08:29 Acetaminophen/ Hydrocodone Bitart (Lortab 5/325) 1 tab PRN Q4HRS PRN PO MODERATE TO SEVERE PAIN 10/08/20 22:30 10/23/20 17:45 DC 10/21/20 08:34 Levothyroxine Sodium (Synthroid) 25 mcg WEEKLYAC PO 10/15/20 07:00 10/09/20 12:52 DC Melatonin (Melatonin) 3 mg HS PO 10/08/20 21:00 10/23/20 17:45 DC 10/22/20 19:53 Montelukast Sodium (Singulair) 10 mg DAILY PO 10/09/20 09:00 10/23/20 17:45 DC 10/23/20 08:30 Polyethylene Glycol (miraLAX) 17 gm PRN DAILY PRN PO CONSTIPATION 10/08/20 22:30 10/23/20 17:45 DC 10/16/20 08:29 Prednisone (Prednisone) 20 mg DAILY PO 10/09/20 09:00 10/09/20 14:24 DC 10/09/20 08:13 Risperidone (RisperDAL) 0.5 mg QHS PO 10/08/20 23:00 10/16/20 11:24 DC 10/15/20 20:49 Trazodone HCl (Desyrel) 25 mg HS PO 10/08/20 23:00 10/23/20 17:45 DC 10/22/20 19:53 Zolpidem Tartrate (Ambien) 5 mg HS PO 10/08/20 23:00 10/23/20 17:45 DC 10/22/20 19:54 Non-Formulary Medication (Chlorpheniramine/ Pe/Codeine (Capcof Liquid)) 5 ml PRN Q12HR PRN PO COUGH 10/08/20 22:30 UNV Non-Formulary Medication (Doxycycline Hyclate ) 100 mg BID PO 10/09/20 09:00 10/09/20 12:52 DC Fluticasone Propionate (Flonase) 1 spray DAILY NS 10/09/20 09:00 10/23/20 17:45 DC 10/23/20 08:30 Multivitamins/ Calcium (Thera-M Plus) 1 tab DAILY PO 10/09/20 09:00 10/23/20 17:45 DC 10/23/20 08:30 Acetaminophen (Tylenol) 650 mg PRN Q6HRS PRN PO MILD PAIN / TEMP > 100.3'F 10/08/20 23:15 10/23/20 17:45 DC 10/16/20 08:29 Multi-Ingredient Ointment (Analgesic [place]) 1 gunner PRN QID PRN TP MUSCLE PAIN 10/08/20 23:15 10/23/20 17:45 DC 10/21/20 07:30 Al Hydroxide/Mg Hydroxide (Mylanta Plus Xs) 15 ml PRN AFTMEALHC PRN PO DYSPEPSIA 10/08/20 23:15 10/09/20 00:04 DC Magnesium Hydroxide (Milk Of Magnesia) 2,400 mg PRN QHS PRN PO CONSTIPATION 10/08/20 23:15 10/09/20 00:04 DC Albuterol Sulfate (Ventolin) 2.5 mg PRN Q6HRS PRN NEB SHORTNESS OF BREATH 10/09/20 01:30 Cancel Albuterol Sulfate (Ventolin Hfa Inhaler) 1 puff PRN Q6HRS PRN INH SHORTNESS OF BREATH 10/09/20 13:45 10/23/20 17:45 DC 10/20/20 06:00 Olanzapine (ZyPREXA ZYDIS) 2.5 mg PRN Q2HR PRN PO PSYCHOSIS 10/09/20 19:45 10/23/20 17:45 DC 10/19/20 08:30 [place] Carbonate 300 mg HS PO 10/09/20 21:00 10/16/20 11:24 DC 10/15/20 20:48 Calcium Carbonate/ Glycine (Tums) 500 mg PRN AFTMEALHC PRN PO INDIGESTION 10/10/20 17:00 UNV Mirtazapine (Remeron) 7.5 mg QHS PO 10/11/20 21:00 10/23/20 17:45 DC 10/22/20 19:53 Trazodone HCl (Desyrel) 25 mg PRN QHS PRN PO INSOMNIA, MAY REPEAT X2 10/11/20 20:00 10/23/20 17:45 DC [place] Carbonate 150 mg DAILY PO 10/13/20 09:00 10/16/20 11:24 DC 10/16/20 08:24 Docusate Sodium (Colace) 100 mg HS PO 10/13/20 20:15 10/23/20 17:45 DC 10/22/20 19:53 [place] Carbonate 300 mg BID PO 10/16/20 21:00 10/23/20 17:45 DC 10/23/20 08:30 Risperidone (RisperDAL) 1 mg QHS PO 10/16/20 21:00 10/23/20 17:45 DC 10/22/20 19:54 [place] Carbonate 150 mg 1X ONCE PO 10/16/20 12:00 10/16/20 12:01 DC 10/16/20 12:16 I have reviewed the current psychotropics carefully including drug interactions. Risk benefit ratio favors no change other than as noted in my dictated progress note. Diagnosis: Problems: (1) Impulse control disorder, unspecified (2) Anxiety disorder, unspecified (3) Bipolar disorder, current episode manic severe with psychotic features VARUN CA MD Oct 23, 2020 22:17
--- NOTE | 2020-10-23 23:30 | DS ---
DATE OF DISCHARGE: 10/23/2020 DISCHARGE SUMMARY/PSYCHIATRIC PROGRESS NOTE This note covers the elements not covered in my initial note, 10/23/2020. REASON FOR ADMISSION: Please refer to the admission history for details. Briefly, the patient is a 65-year-old female, who is originally from [place], referred from [facility] after she presented there with active auditory and visual hallucinations, marked anxiety, and insomnia. She was extremely manic, had a recent accidental overdose of lithium 2-1/2 weeks ago. She was fearful, distraught, had failed outpatient psychiatric interventions, and was referred for inpatient psychiatric stabilization. SIGNIFICANT FINDINGS AND CLINICAL COURSE: Following admission, the patient was seen daily individually by myself from a psychiatric standpoint, medical followup with Dr. Suggs/Dr. Andrade. The patient was extremely manic, impulsive, grandiose, hyperverbal, agitated at admission. She was yelling at her son over the phone, wanting her to be discharged. Careful review of her history, past treatment indicated she had done well on lithium and she was restarted on this and stabilized on 300 mg twice a day, level of 0.8. She was also on Risperdal 1 mg daily, Ambien 5 mg at bedtime, trazodone 25 mg at bedtime p.r.n., may repeat x 2, melatonin 3 mg at bedtime, Remeron 7.5 mg at bedtime, Zyprexa p.r.n. Gradually, mood appeared to stabilize and was euthymic, much less anxious, less impulsive. No suicidal or homicidal ideation prior to discharge and no active psychotic symptoms. CONDITION ON DISCHARGE: Improved. FINAL DIAGNOSES: Bipolar 1 disorder, manic with psychotic features, in partial remission; anxiety disorder, unspecified; impulse control disorder, unspecified. Rest unchanged from admission. DISCHARGE MEDICATIONS: Please refer to the MRAD. DISCHARGE INSTRUCTIONS: Outpatient psychiatric and medical followup as arranged prior to discharge. Time for discharge day management greater than 30 minutes. APOLINAR/DANIELLE/JANES DR: APOLINAR/macey TID: [id number]
--- NOTE | 2020-10-24 06:23 | PDOC ---
Exam Note: Evangelist Note: This note is a late entry for 10/22/2020 covers elements not covered in my initial note. Subjective: The patient was seen individually in the evening of 10/22/2020 with Rosa TEJADA, discussed and reviewed the chart. The patient slept 7-1/2 hours previous night. Overall she is less manic and less impulsive. Review of Systems: No CV, , pulmonary, eye, ENT system symptoms on review. Ambulation impaired with walker. Mental Status Exam: The patient is reasonably oriented. She is much less grandiose, less hyperverbal, more appropriate. Speech coherent. Abstraction fair. Computation impaired. Language function intact. Mood and affect improved. No suicidal or homicidal ideation. Laboratory Data: Reviewed. Impression: Bipolar disorder, manic with psychotic features. Anxiety disorder unspecified. Impulse control disorder unspecified. Plan: Continue current psychotropics. [place] level is therapeutic. Discharge home with niece on 10/23. Assessment: Vital Signs/I&O: Vital Signs Date Time Temp Pulse Resp B/P (MAP) Pulse Ox O2 Delivery O2 Flow Rate FiO2 10/23/20 16:37 98.3 80 18 129/73 (91) 94 10/23/20 06:27 Room Air I & O 10/23/20 10/23/20 10/24/20 15:00 23:00 07:00 Intake Total 720 ml Balance 720 ml Current Medications: Meds: Current Medications Medications (Trade) Dose Ordered Sig/Jessica Route PRN Reason Start Time Stop Time Status Last Admin Dose Admin Albuterol Sulfate (Ventolin) 1 mg PRN Q6HRS PRN IH FOR ASTHMA 10/08/20 22:30 10/08/20 22:41 DC Amoxicillin/ Clavulanate Potassium (Augmentin 875/ 125mg) 1 tab BID PO 10/09/20 09:00 10/09/20 12:52 DC Aspirin (Mikal Aspirin) 325 mg DAILY PO 10/09/20 09:00 10/23/20 17:45 DC 10/23/20 08:29 Buspirone HCl (Buspar) 5 mg BID PO 10/08/20 23:00 10/10/20 21:00 DC 10/10/20 20:27 Ferrous Sulfate (Feosol) 325 mg BIDWMEALS PO 10/09/20 08:00 10/23/20 17:45 DC 10/23/20 08:29 Acetaminophen/ Hydrocodone Bitart (Lortab 5/325) 1 tab PRN Q4HRS PRN PO MODERATE TO SEVERE PAIN 10/08/20 22:30 10/23/20 17:45 DC 10/21/20 08:34 Levothyroxine Sodium (Synthroid) 25 mcg WEEKLYAC PO 10/15/20 07:00 10/09/20 12:52 DC Melatonin (Melatonin) 3 mg HS PO 10/08/20 21:00 10/23/20 17:45 DC 10/22/20 19:53 Montelukast Sodium (Singulair) 10 mg DAILY PO 10/09/20 09:00 10/23/20 17:45 DC 10/23/20 08:30 Polyethylene Glycol (miraLAX) 17 gm PRN DAILY PRN PO CONSTIPATION 10/08/20 22:30 10/23/20 17:45 DC 10/16/20 08:29 Prednisone (Prednisone) 20 mg DAILY PO 10/09/20 09:00 10/09/20 14:24 DC 10/09/20 08:13 Risperidone (RisperDAL) 0.5 mg QHS PO 10/08/20 23:00 10/16/20 11:24 DC 10/15/20 20:49 Trazodone HCl (Desyrel) 25 mg HS PO 10/08/20 23:00 10/23/20 17:45 DC 10/22/20 19:53 Zolpidem Tartrate (Ambien) 5 mg HS PO 10/08/20 23:00 10/23/20 17:45 DC 10/22/20 19:54 Non-Formulary Medication (Chlorpheniramine/ Pe/Codeine (Capcof Liquid)) 5 ml PRN Q12HR PRN PO COUGH 10/08/20 22:30 UNV Non-Formulary Medication (Doxycycline Hyclate ) 100 mg BID PO 10/09/20 09:00 10/09/20 12:52 DC Fluticasone Propionate (Flonase) 1 spray DAILY NS 10/09/20 09:00 10/23/20 17:45 DC 10/23/20 08:30 Multivitamins/ Calcium (Thera-M Plus) 1 tab DAILY PO 10/09/20 09:00 10/23/20 17:45 DC 10/23/20 08:30 Acetaminophen (Tylenol) 650 mg PRN Q6HRS PRN PO MILD PAIN / TEMP > 100.3'F 10/08/20 23:15 10/23/20 17:45 DC 10/16/20 08:29 Multi-Ingredient Ointment (Analgesic [place]) 1 gunner PRN QID PRN TP MUSCLE PAIN 10/08/20 23:15 10/23/20 17:45 DC 10/21/20 07:30 Al Hydroxide/Mg Hydroxide (Mylanta Plus Xs) 15 ml PRN AFTMEALHC PRN PO DYSPEPSIA 10/08/20 23:15 10/09/20 00:04 DC Magnesium Hydroxide (Milk Of Magnesia) 2,400 mg PRN QHS PRN PO CONSTIPATION 10/08/20 23:15 10/09/20 00:04 DC Albuterol Sulfate (Ventolin) 2.5 mg PRN Q6HRS PRN NEB SHORTNESS OF BREATH 10/09/20 01:30 Cancel Albuterol Sulfate (Ventolin Hfa Inhaler) 1 puff PRN Q6HRS PRN INH SHORTNESS OF BREATH 10/09/20 13:45 10/23/20 17:45 DC 10/20/20 06:00 Olanzapine (ZyPREXA ZYDIS) 2.5 mg PRN Q2HR PRN PO PSYCHOSIS 10/09/20 19:45 10/23/20 17:45 DC 10/19/20 08:30 [place] Carbonate 300 mg HS PO 10/09/20 21:00 10/16/20 11:24 DC 10/15/20 20:48 Calcium Carbonate/ Glycine (Tums) 500 mg PRN AFTMEALHC PRN PO INDIGESTION 10/10/20 17:00 UNV Mirtazapine (Remeron) 7.5 mg QHS PO 10/11/20 21:00 10/23/20 17:45 DC 10/22/20 19:53 Trazodone HCl (Desyrel) 25 mg PRN QHS PRN PO INSOMNIA, MAY REPEAT X2 10/11/20 20:00 10/23/20 17:45 DC [place] Carbonate 150 mg DAILY PO 10/13/20 09:00 10/16/20 11:24 DC 10/16/20 08:24 Docusate Sodium (Colace) 100 mg HS PO 10/13/20 20:15 10/23/20 17:45 DC 10/22/20 19:53 [place] Carbonate 300 mg BID PO 10/16/20 21:00 10/23/20 17:45 DC 10/23/20 08:30 Risperidone (RisperDAL) 1 mg QHS PO 10/16/20 21:00 10/23/20 17:45 DC 10/22/20 19:54 [place] Carbonate 150 mg 1X ONCE PO 10/16/20 12:00 10/16/20 12:01 DC 10/16/20 12:16 I have reviewed the current psychotropics carefully including drug interactions. Risk benefit ratio favors no change other than as noted in my dictated progress note. Diagnosis: Problems: (1) Impulse control disorder, unspecified (2) Anxiety disorder, unspecified (3) Bipolar disorder, current episode manic severe with psychotic features VARUN CA MD Oct 24, 2020 06:23
[2020-10-25] MEDS ORDERED: HYDR-2155 PO (17:23)
== END 2020-10-23 17:00 | disposition home or self-care (01) | DRG 885 ==
LOC: GEROPSY 17:00
PROVIDERS: ADMIT Psychiatry & Neurology Psychiatry; ATTEND Psychiatry & Neurology Psychiatry
DX: F31.64 Bipolar disorder, current episode mixed, severe, with psychotic features (principal); F63.9 Impulse disorder, unspecified; D64.9 Anemia, unspecified; E03.9 Hypothyroidism, unspecified; F41.9 Anxiety disorder, unspecified; G24.01 Drug induced subacute dyskinesia; G47.00 Insomnia, unspecified; I10 Essential (primary) hypertension; G43.909 Migraine, unspecified, not intractable, without status migrainosus; K21.9 Gastro-esophageal reflux disease without esophagitis; J45.909 Unspecified asthma, uncomplicated; K59.00 Constipation, unspecified; M19.90 Unspecified osteoarthritis, unspecified site; Z79.899 Other long term (current) drug therapy; Z87.442 Personal history of urinary calculi; Z87.891 Personal history of nicotine dependence
CPT/HCPCS: 36415; 80053; 80061; 80178; 81001; 82306; 82607; 83036; 83540; 83550; 83735; 84436; 84443; 84480; 85025; 85379; 86592; 87086; 93005; J7512; 97110; 97116; 97530